=== PATIENT | female | born 1945 | race Caucasian/White ===

== ENCOUNTER → 2016-08-17 | Outpatient (CLI) | payer MEDICARE ==
[2016-08-17 10:59] LABS: Magnesium 2.4 mg/dL (1.6-2.3); Potassium 4.5 mmol/L (3.5-5.1)
== END | disposition home or self-care (01) ==
LOC: LABWHC1 09:59
PROVIDERS: ATTEND Internal Medicine
DX: I50.23 Acute on chronic systolic (congestive) heart failure (principal)
CPT/HCPCS: 36415; 80048; 83735; 83880

== ENCOUNTER → 2016-08-25 | Outpatient (CLI) | payer MEDICARE ==
[2016-08-25 09:39] LABS: Calcium 10.3 mg/dL (8.4-10.2); Magnesium 2.5 mg/dL (1.6-2.3); Potassium 4.5 mmol/L (3.5-5.1); Total Bilirubin 1.7 mg/dL (0.2-1.3)
== END | disposition home or self-care (01) ==
LOC: LABWHC1 08:51
PROVIDERS: ATTEND Internal Medicine
DX: I50.43 Acute on chronic combined systolic (congestive) and diastolic (congestive) heart failure (principal)
CPT/HCPCS: 36415; 80053; 83735; 83880

== ENCOUNTER → 2016-09-14 | Outpatient (CLI) | payer MEDICARE ==
[2016-09-14 08:49] LABS: Calcium 10.3 mg/dL (8.4-10.2); Magnesium 2.3 mg/dL (1.6-2.3); Potassium 4.2 mmol/L (3.5-5.1)
== END | disposition home or self-care (01) ==
LOC: LABWHC1 08:05
PROVIDERS: ATTEND Internal Medicine
DX: I50.22 Chronic systolic (congestive) heart failure (principal)
CPT/HCPCS: 36415; 80048; 83735; 83880

== ENCOUNTER → 2016-09-24 | Outpatient (CLI) | payer MEDICARE ==
[2016-09-24 12:10] LABS: Appearance,Urine Clear (Clear); Bilirubin,Urine Negative (Negative); Glucose,Urine (UA) Negative (Negative); Ketones,Urine Negative (Negative); Leukocyte Esterase,Urine Negative (Negative); Nitrite,Urine Negative (Negative); PH, Urine 6.5 (5.0-8.0); Protein,Urine Trace (Negative); Specific Gravity,Urine 1.011 (1.001-1.035); UA Billing (MACRO vs. MICRO) CHEM; Urobilinogen,Urine <2.0 mg/dL (<2.0)
[2016-09-24 12:28] LABS: Anisocytosis Moderate; Basophils # (A) 0.1 k/uL (0-0.2); Basophils % (A) 1 %; CH 33.8; CHCM 32.7; Eosinophils # (A) 0.1 k/uL (0-0.7); Eosinophils % (A) 1 %; HCT 30.8 % (34.0-46.0); HDW 2.98; HGB 9.6 gm/dL (11.4-16.0); Hypochromasia Slight; Luc % (Auto) 1; Lymphocytes # (A) 0.5 k/uL (1.0-4.8); Lymphocytes % (A) 4 %; MCH 32.6 pg (25.0-35.0); MCHC 31.2 g/dL (31.0-37.0); MCV 104.3 fL (80.0-100.0); Macrocytosis Marked; Mean Platelet Volume 8.3; Monocytes # (A) 0.4 k/uL (0-1.0); Monocytes % (A) 3 %; Neutrophils # (A) 9.9 k/uL (1.3-7.7); Neutrophils % (A) 90 %; RBC 2.96 m/uL (3.80-5.40); RDW 20.7 % (11.5-15.5); WBC (Perox) 11.45
[2016-09-24 12:46] LABS: Manual Review Performed
== END | disposition home or self-care (01) ==
LOC: LABWHC1 11:35
PROVIDERS: ATTEND Internal Medicine
DX: I95.9 Hypotension, unspecified (principal)
CPT/HCPCS: 36415; 81003; 85025; 87040; 87086

== ENCOUNTER 2016-10-08 16:36 | Inpatient (IN) | payer MEDICARE ==
--- NOTE | 2016-10-08 17:55 | ED ---
General Adult HPI - General Chief complaint: Weakness Stated complaint: difficulty breathing Time Seen by Provider: 10/08/16 16:51 Source: patient, RN notes reviewed, old records reviewed Mode of arrival: wheelchair Limitations: no limitations - History of Present Illness Initial comments: This is a 71-year-old female the ER for evaluation. This patient presents for evaluation of continued weakness. Patient medical history significant for CHF and low thyroid. Patient was tried on outpatient therapy was symptoms have been progressing for about 2-3 weeks now. Patient did see her family doctor yesterday and has significantly worsened since yesterday. Patient complaining of shortness of breath and overall lethargy, poor strain secondary to weakness and inattentiveness - Related Data Home Medications Medication Instructions Recorded Confirmed Allopurinol 300 mg PO DAILY 07/12/14 10/08/16 Hydrocodone/Acetaminophen 1 tab PO Q6HR PRN 04/22/15 10/08/16 [Hydrocodon-Acetaminophn 10-325] Ferrous Sulfate [Iron (65 MG 325 mg PO DAILY@159912/23/15 10/08/16 Elemental)] Folic Acid 1 mg PO DAILY@1600 02/04/16 10/08/16 Multivits-Min/Iron/FA/Lutein 1 tab PO DAILY 02/04/16 10/08/16 [Centrum Silver Women Tablet] ALPRAZolam [Xanax] 0.25 mg PO HS PRN 10/08/16 10/08/16 Bumetanide [BUMEX] 2 mg PO BID@0800,1500 10/08/16 10/08/16 Levothyroxine Sodium [Synthroid] 50 mcg PO DAILY 10/08/16 10/08/16 Pantoprazole Sodium [Protonix] 40 mg PO BID@0800,1600 10/08/16 10/08/16 Potassium Chloride [Klor-Con] 10 meq PO BID@0800,1600 10/08/16 10/08/16 Rivaroxaban [Xarelto] 15 mg PO W/SUPPER@1600 10/08/16 10/08/16 hydrALAZINE HCL [Apresoline] 25 mg PO TID 10/08/16 10/08/16 Previous Rx's Medication Instructions Recorded Sildenafil [Revatio] 20 mg PO TID #90 tab 02/27/16 Spironolactone [Aldactone] 25 mg PO DAILY #30 tab 02/27/16 Allergies Allergy/AdvReac Type Severity Reaction Status Date / Time adhesive Allergy Rash/Hives Verified 10/08/16 17:04 Review of Systems ROS Statement: Those systems with pertinent positive or pertinent negative responses have been documented in the HPI. ROS Other: All systems not noted in ROS Statement are negative. 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 USES HOME O2 2 LITERS N/C AND HAS NEBULIZER. EGD and April 2014 revealing gastritis and gastric polyp. PAST HX GOUT,ANEMIA/IRON DEFICIENCY, Last Myocardial Infarction Date:: 2008 History of Any Multi-Drug Resistant Organisms: None Reported Past Surgical History: Bariatric Surgery, Cholecystectomy, Heart Catheterization , Heart Catheterization With Stent, Hernia Repair, Joint Replacement Additional Past Surgical History / Comment(s): BILATERAL CATARACT SURGERY, HIATAL HERNIA REPAIR, OPEN CHOLECYSTECTOMY, 3 C-SECTIONS, BILATERAL TOTAL KNEES TWICE, stomache stapled 35 years ago, EGD Past Anesthesia/Blood Transfusion Reactions: No Reported Reaction Additional Past Anesthesia/Blood Transfusion Reaction / Comment(s): PT HAS NEVER HAD BLOOD TRANSFUSION Date of Last Stent Placement:: 2008 Past Psychological History: No Psychological Hx Reported Additional Psychological History / Comment(s): LIVES WITH OF 50 YRS. SHE LIVES IN A SINGLE LEVEL HOME. PT PERFORMS OWN ADL'S. THE BATHROOM IS HANDICAP ASSESSIBLE. THEY GET MEALS ON WHEELS 4 DAYS A WEEK. HER COOKS ON THE OTHER DAYS. PT USES A CANE IF SHE HAS TO WALK A DISTANCE. PT NO LONGER DRIVES. HER DRIVES. Smoking Status: Former smoker Past Alcohol Use History: Occasional Additional Past Alcohol Use History / Comment(s): Quit smoking over 40 years ago stated only smoked a few years in her 21. 's 1 pack per week Past Drug Use History: None Reported - Past Family History Father Family Medical History: Cancer, CVA/TIA Additional Family Medical History / Comment(s): FATHER AT AGE 81YRS Mother Family Medical History: CVA/TIA, Myocardial Infarction (SD) Additional Family Medical History / Comment(s): MOTHER IS ALIVE AT AGE 96YRS. General Exam Limitations: no limitations, altered mental status General appearance: alert, lethargic, in distress Head exam: Present: atraumatic, normocephalic, normal inspection Eye exam: Present: normal appearance, PERRL, EOMI. Absent: scleral icterus, conjunctival injection, periorbital swelling ENT exam: Present: normal exam, mucous membranes moist Neck exam: Present: normal inspection. Absent: tenderness, meningismus, lymphadenopathy Respiratory exam: Present: normal lung sounds bilaterally, respiratory distress , accessory muscle use, decreased breath sounds, prolonged expiratory. Absent: wheezes, rales, rhonchi, stridor Cardiovascular Exam: Present: regular rate, normal rhythm, normal heart sounds. Absent: systolic murmur, diastolic murmur, rubs, gallop, clicks GI/Abdominal exam: Present: soft, normal bowel sounds. Absent: distended, tenderness, guarding, rebound, rigid Extremities exam: Present: normal inspection, full ROM, normal capillary refill. Absent: tenderness, pedal edema, joint swelling, calf tenderness Back exam: Present: normal inspection Neurological exam: Present: alert, oriented X3, CN II-XII intact Psychiatric exam: Present: normal affect, normal mood Skin exam: Present: warm, dry, intact, normal color. Absent: rash Course Vital Signs 10/08/16 16:40 Temperature 97.3 F L Pulse Rate 67 Respiratory 22 Rate Blood Pressure 89/52 O2 Sat by Pulse 95 Oximetry - Reevaluation(s) Reevaluation #1: 10/08/16 18:30 Patient sluing no significant clinical improvement at this point EKG Findings - EKG Comments: EKG Findings:: EKG shows paced rhythm rate of 71, ND 160, QRS 200, QTC 549 Medical Decision Making - Medical Decision Making 71 female here with multifactorial weakness, severe dehydration severe congestive heart failure severe weakness uremia dehydration and multiple left- sided abnormalities compounded by dehydration CHF, patient be admitted for both cardiac and nephrology evaluations, correcting electrolytes and cardiac observation - Lab Data Result diagrams: 10/08/16 17:30 10/08/16 17:30 Lab Results 10/08/16 10/08/16 10/08/16 Range/Units 17:30 17:30 17:30 WBC (3.8-10.6) k/uL RBC (3.80-5.40) m/uL Hgb (11.4-16.0) gm/dL Hct (34.0-46.0) % MCV (80.0-100.0) fL MCH (25.0-35.0) pg MCHC (31.0-37.0) g/dL RDW (11.5-15.5) % Plt Count (150-450) k/uL Neutrophils % % Lymphocytes % % Monocytes % % Eosinophils % % Basophils % % Neutrophils # (1.3-7.7) k/uL Lymphocytes # (1.0-4.8) k/uL Monocytes # (0-1.0) k/uL Eosinophils # (0-0.7) k/uL Basophils # (0-0.2) k/uL Manual Slide Review Hypochromasia Poikilocytosis (manual Anisocytosis Macrocytosis Ovalocytes PT (9.0-12.0) sec INR (<1.1) APTT (22.0-30.0) sec Sodium 125 L (137-145) mmol/L Potassium 6.2 H* (3.5-5.1) mmol/L Chloride 86 L (98-107) mmol/L Carbon Dioxide 24 (22-30) mmol/L Anion Gap 15 mmol/L BUN 117 H* (7-17) mg/dL Creatinine 2.60 H (0.52-1.04) mg/dL Est GFR (MDRD) Af Amer 22 (>60 ml/min/1.73 sqM) Est GFR (MDRD) Non-Af 18 (>60 ml/min/1.73 sqM) Glucose 116 H (74-99) mg/dL Plasma Lactic Acid Odilon 1.7 (0.7-2.0) mmol/L Calcium 10.5 H (8.4-10.2) mg/dL Phosphorus 5.2 H (2.5-4.5) mg/dL Magnesium 3.1 H (1.6-2.3) mg/dL Total Bilirubin 1.9 H (0.2-1.3) mg/dL AST 36 (14-36) U/L ALT 31 (9-52) U/L Alkaline Phosphatase 137 H (38-126) U/L Total Creatine Kinase 42 (30-135) U/L Total Protein 7.3 (6.3-8.2) g/dL Albumin 4.0 (3.5-5.0) g/dL 10/08/16 10/08/16 Range/Units 17:30 17:30 WBC 13.0 H (3.8-10.6) k/uL RBC 2.57 L (3.80-5.40) m/uL Hgb 8.7 L (11.4-16.0) gm/dL Hct 27.3 L (34.0-46.0) % MCV 106.5 H (80.0-100.0) fL MCH 33.9 (25.0-35.0) pg MCHC 31.9 (31.0-37.0) g/dL RDW 22.3 H (11.5-15.5) % Plt Count 240 (150-450) k/uL Neutrophils % 91 % Lymphocytes % 4 % Monocytes % 4 % Eosinophils % 0 % Basophils % 0 % Neutrophils # 11.8 H (1.3-7.7) k/uL Lymphocytes # 0.5 L (1.0-4.8) k/uL Monocytes # 0.5 (0-1.0) k/uL Eosinophils # 0.0 (0-0.7) k/uL Basophils # 0.0 (0-0.2) k/uL Manual Slide Review Performed Hypochromasia Slight Poikilocytosis (manual Present Anisocytosis Moderate Macrocytosis Marked Ovalocytes Present PT 17.0 H (9.0-12.0) sec INR 1.8 (<1.1) APTT 33.8 H (22.0-30.0) sec Sodium (137-145) mmol/L Potassium (3.5-5.1) mmol/L Chloride (98-107) mmol/L Carbon Dioxide (22-30) mmol/L Anion Gap mmol/L BUN (7-17) mg/dL Creatinine (0.52-1.04) mg/dL Est GFR (MDRD) Af Amer (>60 ml/min/1.73 sqM) Est GFR (MDRD) Non-Af (>60 ml/min/1.73 sqM) Glucose (74-99) mg/dL Plasma Lactic Acid Odilon (0.7-2.0) mmol/L Calcium (8.4-10.2) mg/dL Phosphorus (2.5-4.5) mg/dL Magnesium (1.6-2.3) mg/dL Total Bilirubin (0.2-1.3) mg/dL AST (14-36) U/L ALT (9-52) U/L Alkaline Phosphatase (38-126) U/L Total Creatine Kinase (30-135) U/L Total Protein (6.3-8.2) g/dL Albumin (3.5-5.0) g/dL - Radiology Data Radiology results: report reviewed (Chest x-ray shows pleural effusions improved from prior, pulmonary edema), image reviewed Critical Care Time Critical Care Time: Yes Total Critical Care Time: 31 Disposition Clinical Impression: Unstable angina, Pleural effusion, COPD exacerbation, CHF exacerbation, Weakness, Hyponatremia, Dehydration, Uremia, ARF (acute renal failure), Hyperkalemia Disposition: ADMITTED IP TO THIS [facility] Condition: Fair Referrals: Armen Jackson MD [Primary Care Provider] - 1-2 days
[2016-10-08 18:04] LABS: INR 1.8 (<1.1); Partial Thromboplastin Time 33.8 sec (22.0-30.0)
--- NOTE | 2016-10-08 18:05 | XR ---
EXAMINATION TYPE: XR chest 2V DATE OF EXAM: 10/08/2016 6:01 PM COMPARISON: 03/15/2016 HISTORY: Difficulty breathing TECHNIQUE: Frontal and lateral views of the chest are obtained. FINDINGS: Heart is enlarged. There is pulmonary vascular congestion. There is a left axillary pacema ker with lead tips in the right ventricle. There is slight blunting of costophrenic angles. Bones are slightly osteopenic. IMPRESSION: Congestive heart failure with pleural effusions. Pleural fluid is improved compared to o ld exam. Pulmonary edema is the same or slightly worse.
[2016-10-08 18:07] LABS: Anisocytosis Moderate; Basophils % (A) 0 %; CH 35.2; CHCM 33.5; Eosinophils % (A) 0 %; HCT 27.3 % (34.0-46.0); HDW 3.32; HGB 8.7 gm/dL (11.4-16.0); Hypochromasia Slight; Luc # (Auto) 0.12; Luc % (Auto) 1; Lymphocytes # (A) 0.5 k/uL (1.0-4.8); Lymphocytes % (A) 4 %; MCH 33.9 pg (25.0-35.0); MCHC 31.9 g/dL (31.0-37.0); MCV 106.5 fL (80.0-100.0); Macrocytosis Marked; Mean Platelet Volume 8.6; Monocytes # (A) 0.5 k/uL (0-1.0); Monocytes % (A) 4 %; Neutrophils # (A) 11.8 k/uL (1.3-7.7); Neutrophils % (A) 91 %; RBC 2.57 m/uL (3.80-5.40); RDW 22.3 % (11.5-15.5); WBC (Perox) 13.23
[2016-10-08 18:14] LABS: Calcium 10.5 mg/dL (8.4-10.2); Magnesium 3.1 mg/dL (1.6-2.3); Phosphorous 5.2 mg/dL (2.5-4.5); Total Bilirubin 1.9 mg/dL (0.2-1.3); Total Protein 7.3 g/dL (6.3-8.2)
[2016-10-08 18:24] LABS: Manual Review Performed
[2016-10-08 18:25] LABS: Potassium 6.2 mmol/L (3.5-5.1)
[2016-10-08 18:26] LABS: Ovalocytes Present
[2016-10-08 18:28] LABS: Troponin I 0.033 ng/mL (0.000-0.034)
[2016-10-08 18:31] LABS: Creatine Kinase MB 5.6 ng/mL (0.0-2.4)
[2016-10-08] MEDS ORDERED: SODIUM CHLORIDE 0.9% 1,000 ML IV STA (18:33)
[2016-10-08] MEDS ORDERED: DEXTROSE 50%-WATER 50 ML SYRINGE IVP STA (18:33)
[2016-10-08] MEDS ORDERED: SODIUM POLYSTYRENE SULFONATE 15 GM/60 ML BOTTLE PO STA (18:33)
[2016-10-08] MEDS ORDERED: INSULIN REGULAR 100 UNIT/ML VIAL IV ONE (18:33)
[2016-10-08] MEDS: SODIUM CHLORIDE 0.9% 1,000 ML IV SCH (20:00)
[2016-10-09 00:07] LABS: Calcium 9.8 mg/dL (8.4-10.2); Potassium 5.6 mmol/L (3.5-5.1)
[2016-10-09 05:28] LABS: Calcium 9.5 mg/dL (8.4-10.2); Magnesium 2.9 mg/dL (1.6-2.3); Phosphorous 4.9 mg/dL (2.5-4.5); Potassium 5.5 mmol/L (3.5-5.1)
[2016-10-09 07:14] LABS: Anisocytosis Moderate; Basophils % (A) 0 %; CH 34.5; CHCM 32.8; Eosinophils # (A) 0.1 k/uL (0-0.7); Eosinophils % (A) 1 %; HCT 24.1 % (34.0-46.0); HDW 3.17; HGB 7.7 gm/dL (11.4-16.0); Hypochromasia Slight; Luc # (Auto) 0.13; Luc % (Auto) 1; Lymphocytes # (A) 0.6 k/uL (1.0-4.8); Lymphocytes % (A) 6 %; MCH 33.8 pg (25.0-35.0); MCHC 31.7 g/dL (31.0-37.0); MCV 106.4 fL (80.0-100.0); Macrocytosis Marked; Mean Platelet Volume 8.4; Monocytes # (A) 0.4 k/uL (0-1.0); Monocytes % (A) 4 %; Neutrophils # (A) 8.2 k/uL (1.3-7.7); Neutrophils % (A) 88 %; RBC 2.27 m/uL (3.80-5.40); WBC 9.4 k/uL (3.8-10.6); WBC (Perox) 9.38
[2016-10-09 09:02] LABS: Manual Review Performed
[2016-10-09] MEDS ORDERED: FUROSEMIDE 10 MG/ML 10 ML VIAL IV STA (09:30)
--- NOTE | 2016-10-09 09:37 | P.NPCON ---
History of Present Illness - Reason for Consult acute renal failure - History of Present Illness Reason for consultation: Acute kidney injury History of present illness: Patient is a 71-year-old female seen in renal consultation for acute kidney injury. In March 2016 her creatinine was near 1-1.2. However recently it's been in the range of 1.7-2 as of 09/22/2016. This admission it was 2.6 and his 2.5 today. Patient presented to the hospital with worsening dyspnea. She has systolic CHF with ejection fraction of 20-25% along with severe tricuspid regurgitation and moderate pulmonary hypertension. She did receive 1 L of IV fluid bolus in the ER for hypotension. According to the patient her blood pressure tends to run low and is typically in the systolic 70s to 80s. She denies any lightheadedness or dizziness. Her chest x-ray suggestive of fluid overload. Her sodium level was also low at 125 and potassium level was elevated at 6.2. She did receive IV insulin as well as Kayexalate and potassium of this morning is down to 5.5. Her urine output over night was near 1 L. She was taking Bumex as well as Aldactone and potassium supplementation at home. She denies use of NSAIDs. She does not follow with a policy director as an outpatient. Vital signs are stable. General: The patient appeared well nourished and normally developed. HEENT: Head exam is unremarkable. Neck is without jugular venous distension. LUNGS: Diffuse rhonchi. Breath sounds decreased. HEART: Rate and Rhythm are regular. First and second heart sounds normal. No murmurs, rubs or gallops. ABDOMEN: Abdominal exam reveals normal bowel sounds. Non-tender and non- distended. No evidence of peritonitis. EXTREMITITES: 1+ edema. 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 USES HOME O2 2 LITERS N/C at HS AND HAS NEBULIZER. EGD and April 2014 revealing gastritis and gastric polyp. PAST HX GOUT,ANEMIA/IRON DEFICIENCY, Last Myocardial Infarction Date:: 2008 History of Any Multi-Drug Resistant Organisms: None Reported Past Surgical History: Bariatric Surgery, Cholecystectomy, Heart Catheterization , Heart Catheterization With Stent, Hernia Repair, Joint Replacement Additional Past Surgical History / Comment(s): BILATERAL CATARACT SURGERY, HIATAL HERNIA REPAIR, OPEN CHOLECYSTECTOMY, 3 C-SECTIONS, BILATERAL TOTAL KNEES TWICE, stomache stapled 35 years ago, EGD Past Anesthesia/Blood Transfusion Reactions: No Reported Reaction Additional Past Anesthesia/Blood Transfusion Reaction / Comment(s): PT HAS NEVER HAD BLOOD TRANSFUSION Date of Last Stent Placement:: 2008 Past Psychological History: No Psychological Hx Reported Additional Psychological History / Comment(s): LIVES WITH OF 50 YRS. SHE LIVES IN A SINGLE LEVEL HOME. PT PERFORMS OWN ADL'S. THE BATHROOM IS HANDICAP ASSESSIBLE. THEY GET MEALS ON WHEELS 4 DAYS A WEEK. HER COOKS ON THE OTHER DAYS. PT USES A CANE IF SHE HAS TO WALK A DISTANCE. PT NO LONGER DRIVES. HER DRIVES. Smoking Status: Former smoker Past Alcohol Use History: Occasional Additional Past Alcohol Use History / Comment(s): Quit smoking over 40 years ago stated only smoked a few years in her 21. 's 1 pack per week Past Drug Use History: None Reported - Past Family History Father Family Medical History: Cancer, CVA/TIA Additional Family Medical History / Comment(s): FATHER AT AGE 81YRS Mother Family Medical History: CVA/TIA, Myocardial Infarction (CO) Additional Family Medical History / Comment(s): MOTHER IS ALIVE AT AGE 96YRS. Medications and Allergies Home Medications Medication Instructions Recorded Confirmed Type Allopurinol 300 mg PO DAILY 07/12/14 10/08/16 History Hydrocodone/Acetaminophen 1 tab PO Q6HR PRN 04/22/15 10/08/16 History [Hydrocodon-Acetaminophn 10-325] Ferrous Sulfate [Iron (65 MG 325 mg PO DAILY@1600 12/23/15 10/08/16 History Elemental)] Folic Acid 1 mg PO DAILY@1600 02/04/16 10/08/16 History Multivits-Min/Iron/FA/Lutein 1 tab PO DAILY 02/04/16 10/08/16 History [Centrum Silver Women Tablet] ALPRAZolam [Xanax] 0.25 mg PO HS PRN 10/08/16 10/08/16 History Bumetanide [BUMEX] 2 mg PO BID@0800,1500 10/08/16 10/08/16 History Levothyroxine Sodium [Synthroid] 50 mcg PO DAILY 10/08/16 10/08/16 History Pantoprazole Sodium [Protonix] 40 mg PO BID@0800,1600 10/08/16 10/08/16 History Potassium Chloride [Klor-Con] 10 meq PO BID@0800,1600 10/08/16 10/08/16 History Rivaroxaban [Xarelto] 15 mg PO W/SUPPER@1600 10/08/16 10/08/16 History hydrALAZINE HCL [Apresoline] 25 mg PO TID 10/08/16 10/08/16 History Allergies Allergy/AdvReac Type Severity Reaction Status Date / Time adhesive Allergy Rash/Hives Verified 10/08/16 17:04 Physical Exam Vitals: Vital Signs Temp Pulse Resp BP Pulse Ox 10/09/16 09:00 80 12 78/43 90 L 10/09/16 08:00 97.7 F 77 20 85/51 97 10/09/16 07:00 76 16 73/51 98 10/09/16 06:00 75 25 H 78/49 99 10/09/16 05:00 97.3 F L 80 20 80/49 95 10/09/16 04:00 73 22 83/55 98 10/09/16 03:00 72 22 78/50 98 10/09/16 02:00 73 18 76/51 97 10/09/16 01:00 74 20 80/53 97 10/09/16 00:00 97.8 F 72 18 77/55 97 10/08/16 23:00 97.5 F L 72 24 84/50 98 10/08/16 22:00 75 21 87/53 99 10/08/16 21:00 75 23 87/57 97 10/08/16 20:00 90 24 90/52 98 10/08/16 19:40 97.5 F L 77 20 97 10/08/16 18:42 97 F L 71 14 86/53 99 Intake and Output 10/08/16 10/09/16 10/09/16 22:59 06:59 14:59 Intake Total 60 190 60 Output Total 250 Balance -190 190 60 Intake: IV 60 160 60 Sodium Chloride 0.9% 1, 60 160 60 000 ml @ 20 mls/hr IV . Q24H [facility] Rx#:[id number] Oral 30 Output: Urine 250 Other: Voiding Method Bedside Commode Bedpan # Voids 1 Weight 82.9 kg 82.1 kg Results - Lab Results Most recent lab results Calcium 9.5 mg/dL (8.4-10.2) 10/09/16 05:00 Phosphorus 4.9 mg/dL (2.5-4.5) H 10/09/16 05:00 Magnesium 2.9 mg/dL (1.6-2.3) H 10/09/16 05:00 10/09/16 05:00 10/09/16 05:00 Assessment and Plan Plan: Assessment: #1. Nonoliguric acute kidney injury secondary to ATN secondary to cardiorenal syndrome. Creatinine 2.5 today. It was 2.6 on admission. Her renal function has been gradually worsening over the last few months. Creatinine was in the range of 1-1.2 in March 2016 and recently has been near 2. #2. Hyperkalemia secondary to acute kidney injury and potassium supplementation. Improved. #3. Hyponatremia. Appears hypervolemic in nature. #4. Chronic hypotension related to underlying cardiac status. #5. Systolic CHF with ejection fraction of 20-25% with severe tricuspid regurgitation and moderate pulmonary hypertension. #6. Anemia. Rule out iron deficiency. Plan: Check urinalysis. Check renal ultrasound. Renal diet and 1.2 L fluid restriction. Lasix 60 mg IV once today. Avoid nephrotoxic agents and hypotensive episodes. Check iron studies. Thank you for the consultation. I will continue to follow the patient with you during her hospital stay.
--- NOTE | 2016-10-09 10:04 | ECHOF ---
Referral Reason:Heart Failure MEASUREMENTS -------- HEIGHT: 154.9 cm WEIGHT: 81.7 kg BP: 73/51 RVIDd: 3.8 cm (< 3.3) IVSd: 1.1 cm (0.6 - 1.1) LVIDd: 5.8 cm (3.9 - 5.3) LVPWd: 1.1 cm (0.6 - 1.1) IVSs: 1.2 cm LVIDs: 5.3 cm LVPWs: 1.4 cm LA Diam: 3.4 cm (2.7 - 3.8) LAESV Index (A-L): 60.60 ml/m Ao Diam: 2.1 cm (2.0 - 3.7) AV Cusp: 1.3 cm (1.5 - 2.6) LA Diam: 2.9 cm (2.7 - 3.8) MV EXCURSION: 7.636 mm (> 18.000) MV EF SLOPE: 52 mm/s (70 - 150) EPSS: 2.3 cm MV E Marcelino: 0.97 m/s MV DecT: 219 ms MV A Marcelino: 0.45 m/s MV E/A Ratio: 2.14 RAP: 15.00 mmHg RVSP: 34.02 mmHg FINDINGS -------- Paced rhythm. Pacerwire seen in RV and RA. This was a technically good study. The left ventricle is moderately dilated. Left ventricular wall thickness is normal. There is severe global hypokinesis of LV . Overall left ventricular systolic function is severely impaired with, an EF between 20 - 25 %. The right ventricle is mild to moderately enlarged. LA is severely dilated >40 ml/m2 The right atrium is normal in size. Aortic valve is trileaflet and is mildly thickened. The mitral valve leaflets are mild to moderately thickened. Moderate mitral annular calcification present. Moderate mitral regurgitation is present. Moderate to severe tricuspid regurgitation present. The right ventricular systolic pressure, as measured by Doppler, is 34.02mmHg. Trace/mild (physiologic) pulmonic regurgitation. The aortic root size is normal. The inferior vena cava is dilated with poor inspiratory collapse which is consistent with estimated right atrial pressure of 15 mmHg. There is no pericardial effusion. CONCLUSIONS -------- 1. Paced rhythm. 2. The right atrium is normal in size. 3. Aortic valve is trileaflet and is mildly thickened. 4. The mitral valve leaflets are mild to moderately thickened. 5. Moderate mitral annular calcification present. 6. Moderate mitral regurgitation is present. 7. Moderate to severe tricuspid regurgitation present. 8. The right ventricular systolic pressure, as measured by Doppler, is 34.02mmHg. 9. Trace/mild (physiologic) pulmonic regurgitation. 10. The aortic root size is normal. 11. The inferior vena cava is dilated with poor inspiratory collapse which is consistent with estimated right atrial pressure of 15 mmHg. 12. Pacerwire seen in RV and RA. 13. There is no pericardial effusion. 14. This was a technically good study. 15. The left ventricle is moderately dilated. 16. Left ventricular wall thickness is normal. 17. There is severe global hypokinesis of LV . 18. Overall left ventricular systolic function is severely impaired with, an EF between 20 - 25 %. 19. The right ventricle is mild to moderately enlarged. 20. LA is severely dilated >40 ml/m2 DIRECTOR PATIENT FIN[employer]CIAL SERVICES: Néstor Luis RDCS
--- NOTE | 2016-10-09 10:20 | P.HPIM ---
History of Present Illness H&P Date: 10/09/16 Chief Complaint: Weakness and shortness of breath Patient is a 71-year-old female was known history of cardiomyopathy who presented to [facility] emergency room with a chief complaint of weakness and shortness of breath. Patient is usually followed by cardiology in [place] and she is maintained on Bumex and Zaroxolyn and Aldactone. She was evaluated in our office about 10 days ago she had evidence of dehydration and increased BUN and creatinine at that time Zaroxolyn was held however patient continued to have worsening weakness she presented to emergency room on 10/08/2016. In the emergency room patient was found to have acute renal failure was elevated BUN and creatinine at 117 and 2.6 respectively Patient also had evidence of anemia with hemoglobin down to 8.7 And evidence of hyperkalemia She was evaluated in the emergency room she was given 1 L of IV normal saline in the emergency room and was admitted to ICU for further evaluation and treatment nephrology consultation was requested. 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 USES HOME O2 2 LITERS N/C at HS AND HAS NEBULIZER. EGD and April 2014 revealing gastritis and gastric polyp. PAST HX GOUT,ANEMIA/IRON DEFICIENCY, Last Myocardial Infarction Date:: 2008 History of Any Multi-Drug Resistant Organisms: None Reported Past Surgical History: Bariatric Surgery, Cholecystectomy, Heart Catheterization , Heart Catheterization With Stent, Hernia Repair, Joint Replacement Additional Past Surgical History / Comment(s): BILATERAL CATARACT SURGERY, HIATAL HERNIA REPAIR, OPEN CHOLECYSTECTOMY, 3 C-SECTIONS, BILATERAL TOTAL KNEES TWICE, stomache stapled 35 years ago, EGD Past Anesthesia/Blood Transfusion Reactions: No Reported Reaction Additional Past Anesthesia/Blood Transfusion Reaction / Comment(s): PT HAS NEVER HAD BLOOD TRANSFUSION Date of Last Stent Placement:: 2008 Past Psychological History: No Psychological Hx Reported Additional Psychological History / Comment(s): LIVES WITH OF 50 YRS. SHE LIVES IN A SINGLE LEVEL HOME. PT PERFORMS OWN ADL'S. THE BATHROOM IS HANDICAP ASSESSIBLE. THEY GET MEALS ON WHEELS 4 DAYS A WEEK. HER COOKS ON THE OTHER DAYS. PT USES A CANE IF SHE HAS TO WALK A DISTANCE. PT NO LONGER DRIVES. HER DRIVES. Smoking Status: Former smoker Past Alcohol Use History: Occasional Additional Past Alcohol Use History / Comment(s): Quit smoking over 40 years ago stated only smoked a few years in her 21. 's 1 pack per week Past Drug Use History: None Reported - Past Family History Father Family Medical History: Cancer, CVA/TIA Additional Family Medical History / Comment(s): FATHER AT AGE 81YRS Mother Family Medical History: CVA/TIA, Myocardial Infarction (VT) Additional Family Medical History / Comment(s): MOTHER IS ALIVE AT AGE 96YRS. Medications and Allergies Home Medications Medication Instructions Recorded Confirmed Type Allopurinol 300 mg PO DAILY 07/12/14 10/08/16 History Hydrocodone/Acetaminophen 1 tab PO Q6HR PRN 04/22/15 10/08/16 History [Hydrocodon-Acetaminophn 10-325] Ferrous Sulfate [Iron (65 MG 325 mg PO DAILY@1600 12/23/15 10/08/16 History Elemental)] Folic Acid 1 mg PO DAILY@1600 02/04/16 10/08/16 History Multivits-Min/Iron/FA/Lutein 1 tab PO DAILY 02/04/16 10/08/16 History [Centrum Silver Women Tablet] ALPRAZolam [Xanax] 0.25 mg PO HS PRN 10/08/16 10/08/16 History Bumetanide [BUMEX] 2 mg PO BID@0800,1500 10/08/16 10/08/16 History Levothyroxine Sodium [Synthroid] 50 mcg PO DAILY 10/08/16 10/08/16 History Pantoprazole Sodium [Protonix] 40 mg PO BID@0800,1600 10/08/16 10/08/16 History Potassium Chloride [Klor-Con] 10 meq PO BID@0800,1600 10/08/16 10/08/16 History Rivaroxaban [Xarelto] 15 mg PO W/SUPPER@1600 10/08/16 10/08/16 History hydrALAZINE HCL [Apresoline] 25 mg PO TID 10/08/16 10/08/16 History Allergies Allergy/AdvReac Type Severity Reaction Status Date / Time adhesive Allergy Rash/Hives Verified 10/08/16 17:04 Physical Exam Vitals: Vital Signs Temp Pulse Resp BP Pulse Ox 10/09/16 09:00 80 12 78/43 90 L 10/09/16 08:00 97.7 F 77 20 85/51 97 10/09/16 07:00 76 16 73/51 98 10/09/16 06:00 75 25 H 78/49 99 10/09/16 05:00 97.3 F L 80 20 80/49 95 10/09/16 04:00 73 22 83/55 98 10/09/16 03:00 72 22 78/50 98 10/09/16 02:00 73 18 76/51 97 10/09/16 01:00 74 20 80/53 97 10/09/16 00:00 97.8 F 72 18 77/55 97 10/08/16 23:00 97.5 F L 72 24 84/50 98 10/08/16 22:00 75 21 87/53 99 10/08/16 21:00 75 23 87/57 97 10/08/16 20:00 90 24 90/52 98 10/08/16 19:40 97.5 F L 77 20 97 10/08/16 18:42 97 F L 71 14 86/53 99 Intake and Output 10/08/16 10/09/16 10/09/16 22:59 06:59 14:59 Intake Total 60 190 60 Output Total 250 Balance -190 190 60 Intake: IV 60 160 60 Sodium Chloride 0.9% 1, 60 160 60 000 ml @ 20 mls/hr IV . Q24H [facility] Rx#:[id number] Oral 30 Output: Urine 250 Other: Voiding Method Bedside Commode Bedpan # Voids 1 Weight 82.9 kg 82.1 kg In general patient is alert and oriented 3 in no apparent distress HEENT head normocephalic and atraumatic Neck is supple no JVD no goiter no lymphadenopathy Chest exam reveals a scattered crackles in both lung copeland no wheezing Cardiac exam reveals irregular heart sounds no gallops no murmurs Abdomen is soft nontender no organomegaly was normal bowel sounds Extremity exam reveals 2+ edema no cyanosis or clubbing Results CBC & Chem 7: 10/09/16 05:00 10/09/16 05:00 Labs: Abnormal Lab Results - Last 24 Hours (Table) 10/08/16 10/09/16 10/09/16 Range/Units 23:28 05:00 05:00 RBC 2.27 L (3.80-5.40) m/uL Hgb 7.7 L (11.4-16.0) gm/dL Hct 24.1 L (34.0-46.0) % MCV 106.4 H (80.0-100.0) fL RDW 22.0 H (11.5-15.5) % Neutrophils # 8.2 H (1.3-7.7) k/uL Lymphocytes # 0.6 L (1.0-4.8) k/uL Sodium 126 L 127 L (137-145) mmol/L Potassium 5.6 H 5.5 H (3.5-5.1) mmol/L Chloride 88 L 90 L (98-107) mmol/L BUN 119 H* 116 H* (7-17) mg/dL Creatinine 2.50 H 2.50 H (0.52-1.04) mg/dL Phosphorus 4.9 H (2.5-4.5) mg/dL Magnesium 2.9 H (1.6-2.3) mg/dL Thrombosis Risk Factor Assmnt - Choose All That Apply Any of the Below Risk Factors Present?: Yes Each Factor Represents 1 point: Abnormal pulmonary function (COPD), Heart failure (<1month), Obesity (BMI >25) Other Risk Factors: Yes Each Risk Factor Represents 2 Points: Age 61-74 years Each Risk Factor Represents 3 Points: History of DVT/PE Other congenital or acquired thrombophilia - If yes, enter type in comment: No Thrombosis Risk Factor Assessment Total Risk Factor Score: 8 Thrombosis Risk Factor Assessment Level: High Risk Assessment and Plan Plan: #1 acute renal failure related to dehydration due to diuretic use and due to cardiorenal syndrome #2 severe cardiomyopathy with ejection fraction 20-25% #3 underlying history of pulmonary hypertension #4 underlying history of anemia #5 hyperkalemia on presentation #6 hyponatremia #7 underlying history of gout #8 hypotension blood pressure of 77/44 At this time plan was discussed was nephrology will give 1 unit of red blood cell transfusion, will give IV Lasix for any evidence of pulmonary congestion, Cardiology consult has been requested will follow very closely prognosis is guarded due to the severity of her cardiac disease and pulmonary hypertension.
[2016-10-09] MEDS: MULTIVITAMINS, THERA 1 EACH TAB PO SCH (10:33)
[2016-10-09] MEDS: SILDENAFIL 20 MG TAB PO SCH ×3 (10:33→21:11)
[2016-10-09] MEDS: LEVOTHYROXINE 50 MCG TAB PO SCH (10:33)
[2016-10-09 11:17] LABS: % Iron Saturation 10.6 % (20-50)
--- NOTE | 2016-10-09 13:53 | US ---
EXAMINATION TYPE: US kidneys/renal and bladder DATE OF EXAM: 10/09/2016 1:22 PM COMPARISON: In pacs CLINICAL HISTORY: eva. Exam done portable in ICU. 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 1.2 cm hypoechoic lesion in the lateral aspect of the lower pole of the right kidney does not meet limits of the simple cyst. 2. Multiple hypoechoic lesions in the left kidney which do not meet the requirements of a simple cyst . 3. Questionable nonobstructing calculus in the upper pole of the right kidney. 4. Limited examination. Further imaging with CT or MR would be suggested.
[2016-10-09] MEDS ORDERED: DEXTROSE/WATER 1 500ML.BAG with DOPamine DRIP 800 MG IV SCH (14:30)
[2016-10-09] MEDS: FUROSEMIDE 250 MG in SODIUM CHLORIDE 0.9% 225 ML IVP SCH (16:25)
[2016-10-09] MEDS: RIVAROXABAN 15 MG TAB PO SCH (16:26)
[2016-10-09] MEDS: FOLIC ACID 1 MG TAB PO SCH (16:26)
[2016-10-09] MEDS: FERROUS SULFATE 325 MG TAB PO SCH (16:26)
[2016-10-09] MEDS: PANTOPRAZOLE 40 MG TABLET PO SCH (16:26)
--- NOTE | 2016-10-09 16:59 | CONS ---
DATE OF CONSULTATION: Patient's old medical records as well as records available from [facility] reviewed. This patient has a history of ischemic cardiomyopathy with severely impaired left ventricular systolic function and pulmonary hypertension, severe advanced heart failure and she is being followed at [facility]. Patient is being maintained as an outpatient on Bumex and Zaroxolyn and Aldactone. Patient is admitted with weakness and shortness of breath. Patient had acute on chronic renal failure and hyperkalemia. Patient has a prior history of cardiac catheterization in 2014. At that time, patient was found to have a patent stent. The patient had an AICD placed at [facility] about 3 or 4 months ago. Patient lives with her and she is up and about in the house. Past medical history includes history of atrial fibrillation, coronary artery disease and a prior history of stroke, DVT, myocardial infarction, history of bariatric surgery, cholecystectomy, hernia repair, joint replacement. Patient's home medications included: 1. Allopurinol. 2. Hydrocodone. 3. Ferrous Sulfate. 4. Bumex 2 mg b.i.d. 5. Xanax. 6. Protonix. 7. Klor-Con. 8. Hydralazine. 9. As well as Aldactone. 10. Xarelto 15 mg daily. In the emergency room, this patient's initial blood pressure was 86/53 mm of mercury. Physical examination at present reveals a 71-year-old female who appears very sick looking. Patient's blood pressure is running in the range of 80 systolic. That is what the blood pressure usually runs blood pressure. She runs usually the blood pressure in the range of 80 to 90 according to the . She had an echo done. HEENT examination is negative. Neck is supple. Jugular venous pressure is difficult to assess. HEART: First and second heart sounds are normal. Lungs reveal bilateral scattered wheezes and a few rales. ABDOMEN: Soft. Liver is palpable about 2 to 3 fingerbreadths below the right costal margin. EXTREMITIES: There is 1+ pedal edema. Peripheral pulsations are not well felt. Patient's hemoglobin is 7.7. Patient's potassium was 6.2 on admission, BUN is 116 and the creatinine is 2.5. The three tropes are 0.03, 2.033. Patient's BNP level is 64,000. Patient's usual creatinine runs in the range of 1.5 to 1.7 and the BNP runs in the range of 11,000. The BNP is 11,000. Patient's TSH is 64. FINAL IMPRESSION: 1. This patient has presented with shortness of breath. Patient has evidence of biventricular failure. Echocardiogram reveals severely impaired left ventricular systolic function as well as severely impaired left ventricular systolic function and pulmonary hypertension and elevated right atrial pressure. Inferior vena cava is dilated and does not collapse. 2. Normally functioning pacemaker. 3. Anemia, most likely secondary to chronic renal failure. The patient's MCV is ( ). Patient does have evidence of iron deficiency. RECOMMENDATIONS: I would recommend to aggressively diurese the patient. We will to treat the patient with Lasix 10 mg/h and we will start the patient on dopamine at 2.5 mcg to improve the renal perfusion. Patient's overall prognosis is guarded. Patient is going to get 1 unit of packed cells. He will need some iron transfusion. She will need some iron infusion. Follow-up BNP level.
[2016-10-09 18:01] LABS: Appearance,Urine Clear (Clear); Glucose,Urine (UA) Negative (Negative); Ketones,Urine Negative (Negative); Protein,Urine Trace (Negative); Specific Gravity,Urine 1.008 (1.001-1.035)
[2016-10-09 18:02] LABS: Bilirubin,Urine Negative (Negative); Leukocyte Esterase,Urine Negative (Negative); Nitrite,Urine Negative (Negative); UA Billing (MACRO vs. MICRO) CHEM; Urobilinogen,Urine <2.0 mg/dL (<2.0)
[2016-10-09] MEDS: DEXTROSE/WATER 1 500ML.BAG with DOPamine DRIP 800 MG IV SCH (20:15)
[2016-10-09] MEDS: SODIUM CHLORIDE 0.9% 1,000 ML IV SCH (20:15)
[2016-10-10 04:58] LABS: Anisocytosis Marked; Basophils % (A) 0 %; CH 33.4; CHCM 32.2; Eosinophils # (A) 0.1 k/uL (0-0.7); Eosinophils % (A) 1 %; HCT 30.1 % (34.0-46.0); Hypochromasia Slight; Luc # (Auto) 0.15; Luc % (Auto) 2; Lymphocytes # (A) 0.6 k/uL (1.0-4.8); Lymphocytes % (A) 6 %; MCH 32.2 pg (25.0-35.0); MCHC 30.6 g/dL (31.0-37.0); MCV 105.2 fL (80.0-100.0); Macrocytosis Marked; Mean Platelet Volume 7.3; Monocytes # (A) 0.5 k/uL (0-1.0); Monocytes % (A) 5 %; Neutrophils # (A) 8.7 k/uL (1.3-7.7); Neutrophils % (A) 86 %; RBC 2.86 m/uL (3.80-5.40); RDW 24.5 % (11.5-15.5); WBC 10.1 k/uL (3.8-10.6)
[2016-10-10 05:01] LABS: HGB 9.2 gm/dL (11.4-16.0)
[2016-10-10 05:13] LABS: Calcium 9.6 mg/dL (8.4-10.2); Potassium 4.7 mmol/L (3.5-5.1); Total Bilirubin 2.6 mg/dL (0.2-1.3); Total Protein 7.1 g/dL (6.3-8.2)
[2016-10-10] MEDS: LEVOTHYROXINE 50 MCG TAB PO SCH (05:53)
[2016-10-10] MEDS: PANTOPRAZOLE 40 MG TABLET PO SCH ×2 (08:47→16:38)
[2016-10-10] MEDS: SILDENAFIL 20 MG TAB PO SCH ×3 (08:47→21:08)
--- NOTE | 2016-10-10 09:56 | XR ---
EXAMINATION TYPE: XR chest 1V portable DATE OF EXAM: 10/10/2016 9:51 AM COMPARISON: 10/08/2016 HISTORY: Shortness of breath FINDINGS: There are bilateral pleural effusions with cardiomegaly and bibasilar infiltrate. There is a diffuse interstitial pattern. Cardiac device with multiple leads noted. Arthropathy shoulders. Chronic rib d eformities. IMPRESSION: 1. Stable findings compatible with CHF and pulmonary edema with bilateral effusion.
--- NOTE | 2016-10-10 10:34 | P.PN ---
Subjective Principal diagnosis: Acute on chronic renal failure, acute congestive heart failure exacerbation, anemia Patient is a 71-year-old female who presented to [facility] with severe shortness of breath and severe weakness, she had evidence of worsening of her kidney function, and evidence of acute congestive heart failure exacerbation she was admitted to ICU. Patient was started on IV Lasix drip yesterday she was also started on IV dopamine drip to improve kidney perfusion. Kidney function has been stable since yesterday. Objective - Vital Signs Vital signs: Vital Signs Temp 98.2 F 10/10/16 08:00 Pulse 100 10/10/16 09:00 Resp 12 10/10/16 09:00 BP 94/61 10/10/16 09:00 Pulse Ox 96 10/10/16 09:00 Intake & Output 10/09/16 10/10/16 10/10/16 18:59 06:59 18:59 Intake Total 160 370 20 Output Total 650 700 425 Balance -490 -330 -405 Weight 82.1 kg 84.4 kg Intake: IV 160 60 20 Sodium Chloride 0.9% 1, 160 60 20 000 ml @ 20 mls/hr IV . Q24H [facility] Rx#:[id number] Blood Product 0 310 Rc Pheresis 2 As3 Unit 0 310 [id number] Output: Urine 650 700 425 Other: Voiding Method Indwelling Catheter Indwelling Catheter - Exam In general patient is alert and oriented 3 in no apparent distress HEENT head normocephalic and atraumatic Neck is supple no JVD no goiter no lymphadenopathy Chest exam reveals a few scattered crackles in both lung copeland no wheezing Cardiac exam reveals regular heart sounds S1 and S2 no gallops no murmurs Abdomen is soft nontender no organomegaly, was normal bowel sounds Extremity exam reveals 2+ edema no cyanosis or clubbing - Labs CBC & Chem 7: 10/10/16 04:46 10/10/16 04:46 Labs: Abnormal Lab Results - Last 24 Hours (Table) 10/09/16 10/09/16 10/10/16 Range/Units 05:00 17:55 04:46 RBC 2.86 L (3.80-5.40) m/uL Hgb 9.2 L D (11.4-16.0) gm/dL Hct 30.1 L (34.0-46.0) % MCV 105.2 H (80.0-100.0) fL MCHC 30.6 L (31.0-37.0) g/dL RDW 24.5 H (11.5-15.5) % Neutrophils # 8.7 H (1.3-7.7) k/uL Lymphocytes # 0.6 L (1.0-4.8) k/uL Sodium (137-145) mmol/L Chloride (98-107) mmol/L BUN (7-17) mg/dL Creatinine (0.52-1.04) mg/dL % Saturation 10.6 L (20-50) % Total Bilirubin (0.2-1.3) mg/dL AST (14-36) U/L Urine Protein Trace H (Negative) 10/10/16 Range/Units 04:46 RBC (3.80-5.40) m/uL Hgb (11.4-16.0) gm/dL Hct (34.0-46.0) % MCV (80.0-100.0) fL MCHC (31.0-37.0) g/dL RDW (11.5-15.5) % Neutrophils # (1.3-7.7) k/uL Lymphocytes # (1.0-4.8) k/uL Sodium 129 L (137-145) mmol/L Chloride 92 L (98-107) mmol/L BUN 115 H* (7-17) mg/dL Creatinine 2.40 H (0.52-1.04) mg/dL % Saturation (20-50) % Total Bilirubin 2.6 H (0.2-1.3) mg/dL AST 38 H (14-36) U/L Urine Protein (Negative) Assessment and Plan Plan: #1 acute renal failure related to dehydration due to diuretic use and due to cardiorenal syndrome #2 severe cardiomyopathy with ejection fraction 20-25% #3 underlying history of pulmonary hypertension #4 underlying history of anemia #5 hyperkalemia on presentation #6 hyponatremia #7 underlying history of gout #8 hypotension At this time patient is maintained on IV Lasix drip and IV dopamine drip she received 1 unit of red blood cell transfusion yesterday she is doing somewhat better Will monitor closely
[2016-10-10] MEDS: MULTIVITAMINS, THERA 1 EACH TAB PO SCH (12:36)
--- NOTE | 2016-10-10 15:29 | PN ---
Patient is seen for followup for acute kidney injury. She has been treated for fluid overload and CHF exacerbation, currently maintained on Lasix drip. She is also on dopamine. She is complaining of mild shortness of breath. On examination, blood pressure is 89/61, heart rate 99 per minute. Urine output was about 975 mL last 12 hours. Patient has an indwelling Hernandez catheter. EXAMINATION OF THE HEART: S1 and S2. EXAMINATION OF THE LUNGS: Bilateral breath sounds are heard. Decreased breath sounds in the bases. Crackles are heard. ABDOMEN: Soft, nontender. Examination of lower extremities shows edema 2+ bilaterally. 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 Labs show serum creatinine 2.4, sodium 129, potassium 4.7. Hemoglobin 9.2 g/dL. ASSESSMENT: 1. Acute kidney injury, cardiorenal, currently nonoliguric, maintained on IV Lasix drip and dopamine, which we can continue. Her heart rate is stable for now. 2. Severe cardiomyopathy systolic heart failure with ejection fraction 20% to 25%. 3. Severe tricuspid regurgitation, moderate pulmonary hypertension. 4. Anemia with evidence of iron deficiency. 5. Hyperkalemia associated with acute kidney injury, currently improved. 6. Chronic kidney disease secondary to nephrosclerosis and chronic heart failure. Previous creatinine about 1 to 1.2 in March of last year; now staying close to 2 on the creatinine. 7. Hypervolemic hyponatremia, improving with diuresis. PLAN: Continue IV Lasix. Patient may need dobutamine as well if renal function and diuresis does not improve. I will start her on IV iron as well.
[2016-10-10] MEDS: FUROSEMIDE 250 MG in SODIUM CHLORIDE 0.9% 225 ML IVP SCH (16:38)
[2016-10-10] MEDS: RIVAROXABAN 15 MG TAB PO SCH (16:38)
[2016-10-10] MEDS: FERROUS SULFATE 325 MG TAB PO SCH (16:38)
[2016-10-10] MEDS: FOLIC ACID 1 MG TAB PO SCH (16:38)
--- NOTE | 2016-10-10 20:02 | P.PN ---
Subjective This patient remains comfortable. Patient's hemodynamics and input and output and left vestibule. No orthopnea or PND is noted. Objective - Vital Signs Vital signs: Vital Signs Temp 98.2 F 10/10/16 12:00 Pulse 98 10/10/16 16:00 Resp 18 10/10/16 16:00 BP 94/53 10/10/16 16:00 Pulse Ox 95 10/10/16 16:00 Intake & Output 10/10/16 10/10/16 10/11/16 06:59 18:59 07:59 Intake Total 370 282.167 Output Total 700 2075 Balance -330 -1792.833 Weight 84.4 kg Intake: IV 60 40 Sodium Chloride 0.9% 1, 60 40 000 ml @ 20 mls/hr IV . Q24H [facility] Rx#:[id number] Intake, IV Titration 242.167 Amount Furosemide 250 mg In 242.167 Sodium Chloride 0.9% 225 ml @ 10 MG/HR 10 mls/hr IVP .Q24H [facility] Rx#: [id number] Blood Product 310 Rc Pheresis 2 As3 Unit 310 [id number] Output: Urine 700 2075 Other: Voiding Method Indwelling Catheter Indwelling Catheter - Exam Patient is laying comfortably in no respiratory distress noted. Vital signs are reviewed. Heart first and second heart sounds are normal. Lungs bilateral scattered wheezes noted. Monitor shows paced rhythm. - Labs CBC & Chem 7: 10/10/16 04:46 10/10/16 04:46 Labs: Abnormal Lab Results - Last 24 Hours (Table) 10/10/16 10/10/16 Range/Units 04:46 04:46 RBC 2.86 L (3.80-5.40) m/uL Hgb 9.2 L D (11.4-16.0) gm/dL Hct 30.1 L (34.0-46.0) % MCV 105.2 H (80.0-100.0) fL MCHC 30.6 L (31.0-37.0) g/dL RDW 24.5 H (11.5-15.5) % Neutrophils # 8.7 H (1.3-7.7) k/uL Lymphocytes # 0.6 L (1.0-4.8) k/uL Sodium 129 L (137-145) mmol/L Chloride 92 L (98-107) mmol/L BUN 115 H* (7-17) mg/dL Creatinine 2.40 H (0.52-1.04) mg/dL Total Bilirubin 2.6 H (0.2-1.3) mg/dL AST 38 H (14-36) U/L Assessment and Plan Plan: We will continue the current treatment at present [place] is responding to the IV Lasix and dopamine. We will check the chest x-ray tomorrow.
[2016-10-10] MEDS: SODIUM CHLORIDE 0.9% 1,000 ML IV SCH (21:05)
[2016-10-10] MEDS: ALPRAZolam 0.25 MG TAB PO PRN (23:06)
[2016-10-11] MEDS: DEXTROSE/WATER 1 500ML.BAG with DOPamine DRIP 800 MG IV SCH ×2 (03:14→22:02)
[2016-10-11 05:40] LABS: Glucose,Whole Blood 111 mg/dL (75-99)
[2016-10-11] MEDS: LEVOTHYROXINE 50 MCG TAB PO SCH (06:47)
[2016-10-11 08:03] LABS: Calcium 9.2 mg/dL (8.4-10.2); Magnesium 2.2 mg/dL (1.6-2.3); Potassium 3.7 mmol/L (3.5-5.1)
[2016-10-11] MEDS: SILDENAFIL 20 MG TAB PO SCH ×3 (08:04→22:08)
[2016-10-11] MEDS: PANTOPRAZOLE 40 MG TABLET PO SCH ×2 (08:04→16:50)
[2016-10-11] MEDS: SODIUM FERRIC GLUCONAT-SUCROSE 125 MG in SODIUM CHLORIDE 0.9% 100 ML IVPB SCH (08:04)
--- NOTE | 2016-10-11 10:28 | P.PN ---
Subjective Principal diagnosis: Acute on chronic renal failure, acute congestive heart failure exacerbation, anemia Patient is a 71-year-old female who presented to [facility] with severe shortness of breath and severe weakness, she had evidence of worsening of her kidney function, and evidence of acute congestive heart failure exacerbation she was admitted to ICU. Patient was started on IV Lasix drip yesterday she was also started on IV dopamine drip to improve kidney perfusion. Kidney function has been stable since yesterday. Objective - Vital Signs Vital signs: Vital Signs Temp 98.1 F 10/11/16 07:57 Pulse 98 10/11/16 07:57 Resp 18 10/11/16 07:57 BP 95/59 10/11/16 07:57 Pulse Ox 96 10/11/16 07:57 Intake & Output 10/10/16 10/11/16 10/11/16 17:59 06:59 18:59 Intake Total Output Total Balance Weight Intake: IV Sodium Chloride 0.9% 1, 000 ml @ 20 mls/hr IV . Q24H [facility] Rx#:[id number] Intake, IV Titration Amount Dextrose/Water 1 500ml. bag @ 5 MCG/KG/MIN 15.39 mls/hr IV .Q24H [facility] with DOPamine DRIP 800 mg Rx#: [id number] Furosemide 250 mg In Sodium Chloride 0.9% 225 ml @ 10 MG/HR 10 mls/hr IVP .Q24H [facility] Rx#: [id number] Output: Urine Other: Voiding Method Indwelling Catheter - Exam In general patient is alert and oriented 3 in no apparent distress HEENT head normocephalic and atraumatic Neck is supple no JVD no goiter no lymphadenopathy Chest exam reveals a few scattered crackles in both lung copeland no wheezing Cardiac exam reveals regular heart sounds S1 and S2 no gallops no murmurs Abdomen is soft nontender no organomegaly, was normal bowel sounds Extremity exam reveals 2+ edema no cyanosis or clubbing - Labs CBC & Chem 7: 10/10/16 04:46 10/11/16 07:11 Labs: Abnormal Lab Results - Last 24 Hours (Table) 10/11/16 10/11/16 Range/Units 05:39 07:11 Sodium 130 L (137-145) mmol/L Chloride 89 L (98-107) mmol/L BUN 97 H* (7-17) mg/dL Creatinine 1.91 H (0.52-1.04) mg/dL Glucose 104 H (74-99) mg/dL POC Glucose (mg/dL) 111 H (75-99) mg/dL Assessment and Plan Plan: #1 acute renal failure related to dehydration due to diuretic use and due to cardiorenal syndrome #2 severe cardiomyopathy with ejection fraction 20-25% #3 underlying history of pulmonary hypertension #4 underlying history of anemia #5 hyperkalemia on presentation #6 hyponatremia #7 underlying history of gout #8 hypotension At this time patient is maintained on IV Lasix drip and IV dopamine drip she received 1 unit of red blood cell transfusion . she is doing somewhat better. She was transferred out of ICU to telemetry floor Will monitor closely
[2016-10-11] MEDS: MULTIVITAMINS, THERA 1 EACH TAB PO SCH (11:15)
--- NOTE | 2016-10-11 12:32 | PN ---
Patient is seen for followup for acute kidney injury, mainly cardiorenal. She is maintained on dopamine and Lasix drip and she currently has had good urine output and remains in negative balance. She was -3 L yesterday. She has an indwelling Hernandez catheter. On examination, blood pressure is 96/59, heart rate 99 per minute. She is afebrile. Examination of the, heart S1 and S2. Examination of the lungs, decreased breath sounds at the bases, basal crackles are heard. Abdomen is soft, nontender. Examination of lower extremities shows edema with chronic skin changes, edema about 1+ bilaterally. Labs show sodium 130, potassium 3.7, BUN 97, serum creatinine 1.9, hemoglobin 9.2 g/dL. ASSESSMENT: 1. Acute kidney injury, cardiorenal, currently improving. Continue with dopamine and Lasix drip. 2. Hypervolemic hyponatremia, improving with diuresis. 3. Severe cardiomyopathy, ejection fraction of about 20%. 4. Severe tricuspid regurgitation, moderate pulmonary hypertension. 5. Hyperkalemia initially, currently improved. 6. Chronic kidney disease secondary to nephrosclerosis and chronic heart failure with serum creatinine about 1 to 1.2 in March of last year. 7. Anemia with severe iron-deficiency, maintained on IV iron. PLAN: Continue Lasix and dopamine. Repeat labs in a.m.
--- NOTE | 2016-10-11 14:54 | XR ---
EXAMINATION TYPE: XR chest 1V portable DATE OF EXAM: 10/11/2016 2:45 PM CLINICAL HISTORY: Difficulty breathing progress study. TECHNIQUE: Single AP portable upright view of the chest is obtained. COMPARISON: Chest x-ray from one day earlier FINDINGS: There is persisting cardiomegaly with multi lead pacemaker/AICD. There is increasing bilat eral central opacity consistent with worsening edema and congestion. Nonvisualized left heart border and hemidiaphragm could reflect underlying infiltrate at this level. Clinical correlation is advised. There are suspected small bilateral pleural effusions. Osseous structures are demineralized. Degener ative change left glenohumeral joint is noted. IMPRESSION: There is cardiomegaly with worsening central vascular congestion and alveolar edema, find ings are consistent with CHF exacerbation progression.
[2016-10-11] MEDS: FOLIC ACID 1 MG TAB PO SCH (16:49)
[2016-10-11] MEDS: FERROUS SULFATE 325 MG TAB PO SCH (16:49)
[2016-10-11] MEDS: RIVAROXABAN 15 MG TAB PO SCH (16:50)
[2016-10-11] MEDS: FUROSEMIDE 250 MG in SODIUM CHLORIDE 0.9% 225 ML IVP SCH (17:37)
--- NOTE | 2016-10-11 19:36 | P.PN ---
Subjective This patient is admitted for congestive cardiac failure he is comfortable she denies any orthopnea or PND patient's urine output is fair. Creatinine is 1.9. Objective - Vital Signs Vital signs: Vital Signs Temp 97.7 F 10/11/16 16:00 Pulse 101 H 10/11/16 16:00 Resp 18 10/11/16 16:00 BP 84/57 10/11/16 16:00 Pulse Ox 92 L 10/11/16 16:00 Intake & Output 10/11/16 10/11/16 10/12/16 06:59 18:59 06:59 Intake Total 239.833 Output Total 1000 Balance -760.167 Weight Intake: IV Sodium Chloride 0.9% 1, 000 ml @ 20 mls/hr IV . Q24H FERMÍN Rx#:[id number] Intake, IV Titration 239.833 Amount Dextrose/Water 1 500ml. bag @ 2.5 MCG/KG/MIN 7.69 mls/hr IV .Q24H FERMÍN with DOPamine DRIP 800 mg Rx# :[id number] Furosemide 250 mg In 239.833 Sodium Chloride 0.9% 225 ml @ 10 MG/HR 10 mls/hr IVP .Q24H FERMÍN Rx#: [id number] Output: Urine 1000 Other: Voiding Method Indwelling Catheter - Exam Patient's vital signs are reviewed. This and is comfortable without any acute respiratory distress. Heart first and second heart sounds are heard. Lungs bilateral basal rales and rhonchi are noted. - Labs CBC & Chem 7: 10/10/16 04:46 10/11/16 07:11 Labs: Abnormal Lab Results - Last 24 Hours (Table) 10/11/16 10/11/16 Range/Units 05:39 07:11 Sodium 130 L (137-145) mmol/L Chloride 89 L (98-107) mmol/L BUN 97 H* (7-17) mg/dL Creatinine 1.91 H (0.52-1.04) mg/dL Glucose 104 H (74-99) mg/dL POC Glucose (mg/dL) 111 H (75-99) mg/dL Assessment and Plan Plan: We will continue the current Lasix drip. Dopamine is decreased to 2.5 mics per KG. We will repeat the chest x-ray.
[2016-10-11] MEDS: SODIUM CHLORIDE 0.9% 1,000 ML IV SCH (22:02)
[2016-10-12 06:31] LABS: Anisocytosis Moderate; Basophils % (A) 0 %; CH 33.2; CHCM 31.4; Eosinophils # (A) 0.1 k/uL (0-0.7); Eosinophils % (A) 1 %; HCT 30.4 % (34.0-46.0); HDW 3.18; HGB 9.2 gm/dL (11.4-16.0); Hypochromasia Moderate; Luc # (Auto) 0.14; Luc % (Auto) 1; Lymphocytes # (A) 0.6 k/uL (1.0-4.8); Lymphocytes % (A) 5 %; MCH 32.5 pg (25.0-35.0); MCHC 30.4 g/dL (31.0-37.0); Macrocytosis Marked; Mean Platelet Volume 7.6; Monocytes # (A) 0.4 k/uL (0-1.0); Monocytes % (A) 4 %; Neutrophils # (A) 9.2 k/uL (1.3-7.7); Neutrophils % (A) 89 %; RBC 2.84 m/uL (3.80-5.40); RDW 23.9 % (11.5-15.5); WBC 10.4 k/uL (3.8-10.6); WBC (Perox) 10.23
[2016-10-12 06:38] LABS: Calcium 8.9 mg/dL (8.4-10.2); Potassium 3.7 mmol/L (3.5-5.1); Total Bilirubin 2.7 mg/dL (0.2-1.3); Total Protein 6.9 g/dL (6.3-8.2)
[2016-10-12] MEDS: LEVOTHYROXINE 50 MCG TAB PO SCH (06:38)
[2016-10-12] MEDS: PANTOPRAZOLE 40 MG TABLET PO SCH ×2 (08:41→16:58)
[2016-10-12] MEDS: SILDENAFIL 20 MG TAB PO SCH ×3 (08:42→20:59)
[2016-10-12] MEDS: SODIUM FERRIC GLUCONAT-SUCROSE 125 MG in SODIUM CHLORIDE 0.9% 100 ML IVPB SCH (10:00)
--- NOTE | 2016-10-12 12:34 | CDI ---
In responding to this query, please exercise your independent professional judgment. The [facility] Coding Staff and Clinical Documentation Specialists appreciate your assistance in clarifying documentation, maintaining compliance with coding guidelines, accurately documenting patients condition and capturing severity of illness. The fact that a question is asked does not imply that any particular answer is desired or expected. Communication forms are a method of clarifying documentation and are not made part of the Legal Health Record. Thank you in advance for your clarification. Last Revision, June 2015 Dayana Roberts [address] [place] [address] Documentation Clarification Form Date: 10/12/2016 12:19:00 PM From: Lorena Szymanski Admit Date: 10/08/2016 6:31:00 PM Patient Name: Windy Dozier Visit Number: [id number] Dr. 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 Acute Kidney Injury Clinical Indicators : BUN/CR/GFR on admission: 117/2.60/18 Patients Baseline: Creatinine was 1 to 1.2 in March last year per Nephro note on 10/11 Other Labs on admission: K+ 6.2, Na 125, hgb 8.7 Treatment: IV Dopamine IV Lasix Nephro consult In order to capture the severity of condition, please clarify if the condition signifies: CKD Stage 1 (GFR > 90) CKD Stage 2 (GFR 60-89) CKD Stage 3 (GFR 30-59) CKD Stage 4 (GFR 15-29) CKD Stage 5 (GFR <15) ESRD Unable to determine Other condition, please specify Please document in your progress notes and discharge summary in order to capture severity of illness and risk of mortality. Include clinical findings that support your diagnosis. FYI: Press F11 to launch patient chart. Place X here if this finding has no clinical significance, is not applicable or if you are not able to provide any additional documentation. BERTIN
--- NOTE | 2016-10-12 12:41 | CDI ---
In responding to this query, please exercise your independent professional judgment. The [facility] Coding Staff and Clinical Documentation Specialists appreciate your assistance in clarifying documentation, maintaining compliance with coding guidelines, accurately documenting patients condition and capturing severity of illness. The fact that a question is asked does not imply that any particular answer is desired or expected. Communication forms are a method of clarifying documentation and are not made part of the Legal Health Record. Thank you in advance for your clarification. Last Revision, October 2015 Dayana Roberts [address] [facility] [place] [address] Documentation Clarification Form Date: 10/12/2016 12:37:00 PM From: Lorena Szymanski Admit Date: 10/08/2016 6:31:00 PM Patient Name: Windy Dozier Visit Number: [id number] Dr. Armen Jackson History/Risk Factors: Exsmoker Home oxygen Home Nebulizer COPD CHF Clinical Indicators: Per history patient has home O2 Treatment: O2 nasal cannula In your professional opinion, can you please clarify if these findings signify one of the following conditions? o Chronic Respiratory failure with hypercapnia o Chronic Respiratory failure with hypoxia o Other Diagnosis, please specify o Unable to determine Please document in your progress notes and discharge summary in order to capture severity of illness and risk of mortality. Include clinical findings that support your diagnosis. FYI: Press F11 to launch patient chart. Place X here if this finding has no clinical significance, is not applicable or if you are not able to provide any additional documentation. BERTIN
[2016-10-12] MEDS: MULTIVITAMINS, THERA 1 EACH TAB PO SCH (12:48)
[2016-10-12] MEDS ORDERED: ONDANSETRON 4 MG/2 ML VIAL IVP PRN (14:32)
[2016-10-12] MEDS: FUROSEMIDE 250 MG in SODIUM CHLORIDE 0.9% 225 ML IVP SCH (14:33)
--- NOTE | 2016-10-12 14:38 | P.PN ---
Subjective Acute on chronic renal failure, acute congestive heart failure exacerbation, anemia Patient is a 71-year-old female who presented to [facility] with severe shortness of breath and severe weakness, she had evidence of worsening of her kidney function, and evidence of acute congestive heart failure exacerbation she was admitted to ICU. Patient was started on IV Lasix drip yesterday she was also started on IV dopamine drip to improve kidney perfusion. 10/12/2016 patient is sitting at bedside chair. She reports that her shortness of breath is improving. She remains on a Lasix drip and dopamine. Chest x-ray shows worsening vascular congestion. Cardiology is following. Patient denies chest pain. Denies any nausea or vomiting. denies any difficulty urinating. Objective - Vital Signs Vital signs: Vital Signs Temp 98.0 F 10/12/16 08:00 Pulse 103 H 10/12/16 08:00 Resp 18 10/12/16 08:00 BP 89/47 10/12/16 08:00 Pulse Ox 92 L 10/12/16 08:00 Intake & Output 10/11/16 10/12/16 10/12/16 18:59 06:59 18:59 Intake Total 239.833 313.07 300 Output Total 1000 3100 800 Balance -760.167 -2786.93 -500 Weight 79.3 kg Intake: IV 113.07 Dextrose/Water 1 500ml. 23.07 bag @ 2.5 MCG/KG/MIN 7.69 mls/hr IV .Q24H FERMÍN with DOPamine DRIP 800 mg Rx# :[id number] Furosemide 250 mg In 30 Sodium Chloride 0.9% 225 ml @ 10 MG/HR 10 mls/hr IVP .Q24H FERMÍN Rx#: [id number] Sodium Chloride 0.9% 1, 60 000 ml @ 20 mls/hr IV . Q24H FERMÍN Rx#:[id number] Intake, IV Titration 239.833 Amount Furosemide 250 mg In 239.833 Sodium Chloride 0.9% 225 ml @ 10 MG/HR 10 mls/hr IVP .Q24H FERMÍN Rx#: [id number] Oral 200 300 Output: Urine 1000 3100 800 Uretheral (Hernandez) 1200 Other: Voiding Method Indwelling Catheter Indwelling Catheter Indwelling Catheter - Exam Head normocephalic Neck supple Lungs diminished with crackles at the bases Heart regular rate and rhythm S1-S2, no rub or gallop Abdomen is soft nontender nondistended positive bowel sounds no hepatosplenomegaly Extremities +1 edema bilateral lower extremities Neuro alert and orientated to 3 - Labs CBC & Chem 7: 10/12/16 06:04 10/12/16 06:04 Labs: Abnormal Lab Results - Last 24 Hours (Table) 10/12/16 10/12/16 Range/Units 06:04 06:04 RBC 2.84 L (3.80-5.40) m/uL Hgb 9.2 L (11.4-16.0) gm/dL Hct 30.4 L (34.0-46.0) % MCV 107.0 H (80.0-100.0) fL MCHC 30.4 L (31.0-37.0) g/dL RDW 23.9 H (11.5-15.5) % Neutrophils # 9.2 H (1.3-7.7) k/uL Lymphocytes # 0.6 L (1.0-4.8) k/uL Sodium 132 L (137-145) mmol/L Chloride 91 L (98-107) mmol/L BUN 84 H* (7-17) mg/dL Creatinine 1.64 H (0.52-1.04) mg/dL Total Bilirubin 2.7 H (0.2-1.3) mg/dL AST 39 H (14-36) U/L Assessment and Plan Plan: #1 acute renal failure related to dehydration due to diuretic use and due to cardiorenal syndrome. Nephrology is following. Kidney functions are showing improvement. Continue with Lasix drip and dopamine #2 acute on chronic systolic CHF exacerbation with severe cardiomyopathy with ejection fraction 20-25%. Currently on IV Lasix drip. Cardiology following. #3 underlying history of pulmonary hypertension #4 underlying history of anemia #5 hyperkalemia on presentation #6 hypervolemic hyponatremia: Improving with Lasix. Sodium 132. Nephrology following. #7 underlying history of gout #8 hypotension #9 iron deficiency anemia. Receiving IV iron. Hemoglobin 9.2 #10 history of atrial fibrillation on Xarelto #11 chronic respiratory failure home O2 dependent
[2016-10-12] MEDS: FERROUS SULFATE 325 MG TAB PO SCH (18:12)
[2016-10-12] MEDS: RIVAROXABAN 15 MG TAB PO SCH (18:13)
[2016-10-12] MEDS: FOLIC ACID 1 MG TAB PO SCH (18:13)
--- NOTE | 2016-10-12 19:13 | PN ---
Patient is seen for followup for acute kidney injury, mainly cardiorenal. She is maintained on Lasix drip and dopamine drip. Her renal function continues to improve and volume status has also been improving. On examination, blood pressure is 93/54, heart rate 95 per minute. She is afebrile. EXAMINATION OF THE HEART: S1 and S2. EXAMINATION OF LUNGS: Good air entry bilaterally. Examination of lower extremities shows edema 2+ bilaterally. [employer] exam is grossly intact. Patient is moving all 4 extremities. Labs show sodium 132, potassium 3.7, BUN 84, serum creatinine 1.64, hemoglobin 9.2 g/dL. ASSESSMENT: 1. Acute kidney injury, cardiorenal, currently improving with inotropes and Lasix drip. Will continue current regimen, as patient continues to improve clinically. 2. Hypervolemic hyponatremia, improving with diuresis. 3. Severe cardiomyopathy; ejection fraction of less than 20%. 4. Anemia with evidence of iron deficiency, maintained on IV iron, which we will discontinue on the . 5. Hypothyroidism. PLAN: Continue current regimen. Repeat labs in a.m.
[2016-10-12] MEDS: DEXTROSE/WATER 1 500ML.BAG with DOPamine DRIP 800 MG IV SCH (20:59)
[2016-10-12] MEDS: SODIUM CHLORIDE 0.9% 1,000 ML IV SCH (21:00)
--- NOTE | 2016-10-12 22:28 | PN ---
This patient was admitted with congestive cardiac failure. She is feeling better. She is more alert and awake. There is no evidence of any respiratory distress. Patient is afebrile. Oxygen saturation is 95%. Blood pressure is 90/55 mmHg. First and second heart sounds are normal. Lung examination still reveals bilateral rales in the lower one third of the lung [place]. Patient's creatinine is 1.64. We will wean her off the dobutamine and continue the Lasix drip.
[2016-10-13] MEDS: DEXTROSE/WATER 1 500ML.BAG with DOPamine DRIP 800 MG IV SCH (06:12)
[2016-10-13] MEDS: LEVOTHYROXINE 50 MCG TAB PO SCH (06:14)
[2016-10-13 06:39] LABS: Anisocytosis Moderate; Basophils % (A) 0 %; CH 33.9; CHCM 32.6; Eosinophils # (A) 0.1 k/uL (0-0.7); Eosinophils % (A) 1 %; HCT 28.3 % (34.0-46.0); HDW 3.28; HGB 8.9 gm/dL (11.4-16.0); Hypochromasia Slight; Luc # (Auto) 0.21; Luc % (Auto) 2; Lymphocytes # (A) 0.5 k/uL (1.0-4.8); Lymphocytes % (A) 4 %; MCH 33.1 pg (25.0-35.0); MCHC 31.4 g/dL (31.0-37.0); MCV 105.3 fL (80.0-100.0); Macrocytosis Marked; Mean Platelet Volume 7.8; Monocytes # (A) 0.5 k/uL (0-1.0); Monocytes % (A) 5 %; Neutrophils # (A) 9.2 k/uL (1.3-7.7); Neutrophils % (A) 88 %; RBC 2.69 m/uL (3.80-5.40); RDW 23.8 % (11.5-15.5); WBC 10.5 k/uL (3.8-10.6); WBC (Perox) 10.61
[2016-10-13 07:03] LABS: Calcium 8.7 mg/dL (8.4-10.2); Potassium 3.6 mmol/L (3.5-5.1); Total Bilirubin 2.3 mg/dL (0.2-1.3); Total Protein 6.5 g/dL (6.3-8.2)
[2016-10-13] MEDS: PANTOPRAZOLE 40 MG TABLET PO SCH ×2 (08:59→15:45)
[2016-10-13] MEDS: SILDENAFIL 20 MG TAB PO SCH ×3 (09:53→20:27)
--- NOTE | 2016-10-13 10:06 | P.PN ---
Subjective Patient is seen in follow-up for acute kidney injury. Patient presented with dyspnea and hypotension. She does have systolic CHF with ejection fraction of 20% with severe tricuspid regurgitation and moderate pulmonary hypertension. She is currently maintained on Lasix drip as well as dobutamine drip. She is maintaining a net negative fluid balance. Dyspnea is improved. Appetite is good. No vomiting or diarrhea. Vital signs are stable. General: The patient appeared well nourished and normally developed. HEENT: Head exam is unremarkable. Neck is without jugular venous distension. LUNGS: Lungs are clear to auscultation and percussion. Breath sounds decreased. HEART: Rate and Rhythm are regular. First and second heart sounds normal. No murmurs, rubs or gallops. ABDOMEN: Abdominal exam reveals normal bowel sounds. Non-tender and non- distended. No evidence of peritonitis. EXTREMITITES: Trace edema. Objective - Vital Signs Vital signs: Vital Signs Temp 98.0 F 10/13/16 07:55 Pulse 99 10/13/16 08:52 Resp 18 10/13/16 08:52 BP 83/54 10/13/16 07:55 Pulse Ox 95 10/13/16 07:55 Intake & Output 10/12/16 10/13/16 10/13/16 18:59 06:59 18:59 Intake Total 991.333 120 Output Total 800 600 Balance 191.333 -600 120 Weight 82.1 kg Intake: IV 362 Dextrose/Water 1 500ml. 108 bag @ 2.5 MCG/KG/MIN 7.69 mls/hr IV .Q24H FERMÍN with DOPamine DRIP 800 mg Rx# :[id number] Furosemide 250 mg In 94 Sodium Chloride 0.9% 225 ml @ 10 MG/HR 10 mls/hr IVP .Q24H FERMÍN Rx#: [id number] Invasive Line 3 20 Sodium Chloride 0.9% 1, 140 000 ml @ 20 mls/hr IV . Q24H FERMÍN Rx#:[id number] Intake, IV Titration 209.333 Amount Furosemide 250 mg In 209.333 Sodium Chloride 0.9% 225 ml @ 10 MG/HR 10 mls/hr IVP .Q24H FERMÍN Rx#: [id number] Oral 420 120 Output: Urine 800 600 Other: Voiding Method Indwelling Catheter Indwelling Catheter Indwelling Catheter - Labs CBC & Chem 7: 10/13/16 06:10 10/13/16 06:10 Labs: Abnormal Lab Results - Last 24 Hours (Table) 10/13/16 10/13/16 Range/Units 06:10 06:10 RBC 2.69 L (3.80-5.40) m/uL Hgb 8.9 L (11.4-16.0) gm/dL Hct 28.3 L (34.0-46.0) % MCV 105.3 H (80.0-100.0) fL RDW 23.8 H (11.5-15.5) % Neutrophils # 9.2 H (1.3-7.7) k/uL Lymphocytes # 0.5 L (1.0-4.8) k/uL Sodium 133 L (137-145) mmol/L Chloride 92 L (98-107) mmol/L BUN 73 H (7-17) mg/dL Creatinine 1.50 H (0.52-1.04) mg/dL Total Bilirubin 2.3 H (0.2-1.3) mg/dL Albumin 3.4 L (3.5-5.0) g/dL Assessment and Plan Plan: Assessment: #1. Nonoliguric acute kidney injury secondary to ATN secondary to cardiorenal syndrome. Creatinine improved to 1.5 today. It was 2.6 on admission. #2. Hyperkalemia secondary to acute kidney injury and potassium supplementation. Resolved. #3. Hyponatremia. Appears hypervolemic in nature. Diuresis. #4. Chronic hypotension related to underlying cardiac status. #5. Systolic CHF with ejection fraction of 20% with severe tricuspid regurgitation and moderate pulmonary hypertension. #6. Anemia. Iron deficiency present Plan: Maintain dobutamine drip and Lasix drip for now. Encourage oral intake. Avoid nephrotoxic agents and hypotensive episodes. Maintain low salt and 1.2 L fluid restricted diet. Continue with IV iron.
[2016-10-13] MEDS: SODIUM FERRIC GLUCONAT-SUCROSE 125 MG in SODIUM CHLORIDE 0.9% 100 ML IVPB SCH (10:59)
[2016-10-13] MEDS: MULTIVITAMINS, THERA 1 EACH TAB PO SCH (12:32)
[2016-10-13] MEDS: FUROSEMIDE 250 MG in SODIUM CHLORIDE 0.9% 225 ML IVP SCH (12:32)
[2016-10-13] MEDS: FERROUS SULFATE 325 MG TAB PO SCH (15:45)
[2016-10-13] MEDS: FOLIC ACID 1 MG TAB PO SCH (15:46)
[2016-10-13] MEDS: RIVAROXABAN 15 MG TAB PO SCH (15:46)
--- NOTE | 2016-10-13 17:13 | P.PN ---
Subjective Principal diagnosis: Acute on chronic renal failure, acute congestive heart failure exacerbation, anemia Patient is a 71-year-old female who presented to [facility] with severe shortness of breath and severe weakness, she had evidence of worsening of her kidney function, and evidence of acute congestive heart failure exacerbation she was admitted to ICU. Patient was started on IV Lasix drip yesterday she was also started on IV dopamine drip to improve kidney perfusion. Kidney function has been stable since yesterday. Objective - Vital Signs Vital signs: Vital Signs Temp 97.7 F 10/13/16 11:44 Pulse 94 10/13/16 11:44 Resp 18 10/13/16 11:44 BP 93/60 10/13/16 11:44 Pulse Ox 98 10/13/16 11:44 Intake & Output 10/12/16 10/13/16 10/13/16 18:59 06:59 18:59 Intake Total 991.333 559.833 Output Total 800 600 550 Balance 191.333 -600 9.833 Weight 82.1 kg Intake: IV 362 Dextrose/Water 1 500ml. 108 bag @ 2.5 MCG/KG/MIN 7.69 mls/hr IV .Q24H FERMÍN with DOPamine DRIP 800 mg Rx# :[id number] Furosemide 250 mg In 94 Sodium Chloride 0.9% 225 ml @ 10 MG/HR 10 mls/hr IVP .Q24H FERMÍN Rx#: [id number] Invasive Line 3 20 Sodium Chloride 0.9% 1, 140 000 ml @ 20 mls/hr IV . Q24H FERMÍN Rx#:[id number] Intake, IV Titration 209.333 219.833 Amount Furosemide 250 mg In 209.333 219.833 Sodium Chloride 0.9% 225 ml @ 10 MG/HR 10 mls/hr IVP .Q24H FERMÍN Rx#: [id number] Oral 420 340 Output: Urine 800 600 550 Other: Voiding Method Indwelling Catheter Indwelling Catheter Indwelling Catheter - Exam In general patient is alert and oriented 3 in no apparent distress HEENT head normocephalic and atraumatic Neck is supple no JVD no goiter no lymphadenopathy Chest exam reveals a few scattered crackles in both lung [place] no wheezing Cardiac exam reveals regular heart sounds S1 and S2 no gallops no murmurs Abdomen is soft nontender no organomegaly, was normal bowel sounds Extremity exam reveals 2+ edema no cyanosis or clubbing - Labs CBC & Chem 7: 10/13/16 06:10 10/13/16 06:10 Labs: Abnormal Lab Results - Last 24 Hours (Table) 10/13/16 10/13/16 Range/Units 06:10 06:10 RBC 2.69 L (3.80-5.40) m/uL Hgb 8.9 L (11.4-16.0) gm/dL Hct 28.3 L (34.0-46.0) % MCV 105.3 H (80.0-100.0) fL RDW 23.8 H (11.5-15.5) % Neutrophils # 9.2 H (1.3-7.7) k/uL Lymphocytes # 0.5 L (1.0-4.8) k/uL Sodium 133 L (137-145) mmol/L Chloride 92 L (98-107) mmol/L BUN 73 H (7-17) mg/dL Creatinine 1.50 H (0.52-1.04) mg/dL Total Bilirubin 2.3 H (0.2-1.3) mg/dL Albumin 3.4 L (3.5-5.0) g/dL Assessment and Plan Plan: #1 acute renal failure related to dehydration due to diuretic use and due to cardiorenal syndrome #2 severe cardiomyopathy with ejection fraction 20-25% #3 underlying history of pulmonary hypertension #4 underlying history of anemia #5 hyperkalemia on presentation #6 hyponatremia #7 underlying history of gout #8 hypotension At this time patient is maintained on IV Lasix drip and IV dopamine drip she received 1 unit of red blood cell transfusion during this admission she is doing somewhat better. she has lost about 4 kg since admission, continue current management Will monitor closely
[2016-10-13] MEDS: SODIUM CHLORIDE 0.9% 1,000 ML IV SCH (20:27)
--- NOTE | 2016-10-13 20:39 | PN ---
This patient has cardiomyopathy with severely impaired left ventricular systolic function. The patient is feeling better. She is sitting in a chair and she is comfortable. Blood pressure is 93/60 mmHg. First and second heart sounds are normal. Lungs reveal a few basal rales; significantly improved as compared to before. There is no evidence of any significant leg edema. Patient's creatinine is 1.50. BUN is 73. We will continue dobutamine for one more day and then wean her off the dobutamine from tomorrow. We will continue the patient on the Lasix drip at present.
[2016-10-13 21:41] LABS: Anisocytosis Moderate; Basophils % (A) 0 %; CH 33.8; CHCM 31.7; Eosinophils # (A) 0.1 k/uL (0-0.7); Eosinophils % (A) 1 %; HCT 29.3 % (34.0-46.0); HGB 8.8 gm/dL (11.4-16.0); Hypochromasia Moderate; Luc # (Auto) 0.14; Luc % (Auto) 2; Lymphocytes # (A) 0.4 k/uL (1.0-4.8); Lymphocytes % (A) 4 %; MCH 32.6 pg (25.0-35.0); MCHC 30.2 g/dL (31.0-37.0); MCV 107.9 fL (80.0-100.0); Macrocytosis Marked; Mean Platelet Volume 7.6; Monocytes # (A) 0.4 k/uL (0-1.0); Monocytes % (A) 4 %; Neutrophils # (A) 8.5 k/uL (1.3-7.7); Neutrophils % (A) 89 %; RBC 2.71 m/uL (3.80-5.40); RDW 23.8 % (11.5-15.5); WBC 9.5 k/uL (3.8-10.6); WBC (Perox) 9.98
[2016-10-13 22:00] LABS: Potassium 3.6 mmol/L (3.5-5.1); Total Bilirubin 2.2 mg/dL (0.2-1.3); Total Protein 6.7 g/dL (6.3-8.2)
[2016-10-14] MEDS: LEVOTHYROXINE 50 MCG TAB PO SCH (06:42)
[2016-10-14] MEDS: HYDROcodone/APAP 10-325MG 1 EACH TAB PO PRN (06:43)
[2016-10-14 06:50] LABS: Anisocytosis Marked; Basophils % (A) 0 %; CH 34.3; CHCM 32.5; Eosinophils # (A) 0.1 k/uL (0-0.7); Eosinophils % (A) 2 %; HCT 29.9 % (34.0-46.0); HDW 3.33; HGB 9.5 gm/dL (11.4-16.0); Hypochromasia Slight; Luc # (Auto) 0.14; Luc % (Auto) 2; Lymphocytes # (A) 0.5 k/uL (1.0-4.8); Lymphocytes % (A) 5 %; MCH 33.8 pg (25.0-35.0); MCHC 31.6 g/dL (31.0-37.0); MCV 107.1 fL (80.0-100.0); Macrocytosis Marked; Mean Platelet Volume 8.4; Monocytes # (A) 0.5 k/uL (0-1.0); Monocytes % (A) 5 %; Neutrophils # (A) 7.9 k/uL (1.3-7.7); Neutrophils % (A) 86 %; RBC 2.79 m/uL (3.80-5.40); RDW 24.5 % (11.5-15.5); WBC 9.2 k/uL (3.8-10.6); WBC (Perox) 9.55
[2016-10-14] MEDS: PANTOPRAZOLE 40 MG TABLET PO SCH ×2 (08:46→16:48)
[2016-10-14] MEDS: SILDENAFIL 20 MG TAB PO SCH ×3 (08:46→21:38)
[2016-10-14 10:43] LABS: Potassium 3.8 mmol/L (3.5-5.1); Total Bilirubin 2.3 mg/dL (0.2-1.3); Total Protein 6.7 g/dL (6.3-8.2)
[2016-10-14] MEDS: MULTIVITAMINS, THERA 1 EACH TAB PO SCH (12:21)
[2016-10-14] MEDS: FUROSEMIDE 250 MG in SODIUM CHLORIDE 0.9% 225 ML IVP SCH (14:16)
--- NOTE | 2016-10-14 15:36 | XR ---
EXAMINATION TYPE: XR chest 1V portable DATE OF EXAM: 10/14/2016 3:14 PM CLINICAL HISTORY: Difficulty breathing progress study. History of CHF. TECHNIQUE: Single AP portable upright view of the chest is obtained. COMPARISON: Chest x-ray from 3 days earlier FINDINGS: There is persisting cardiomegaly with multi lead pacemaker/AICD. There is atherosclerotic thoracic aorta. There is small right pleural effusion. Central opacities bilaterally are slightly imp roved. There is more dense consolidation in the left lower lung silhouetting left heart border and he midiaphragm consistent with infiltrate and/or atelectasis and possible left pleural effusion. Surgica l clips epigastric region are seen. Cholecystectomy clips are noted. Chronic degenerative changes yu ateral humeral heads is redemonstrated. IMPRESSION: There is cardiomegaly with small right pleural effusion and dense left basilar consolidat ion and/or atelectasis with probable left-sided pleural effusion all redemonstrated. There is interva l improvement in moderate central bilateral edema and/or infiltrates.
--- NOTE | 2016-10-14 16:18 | PN ---
Patient is seen for followup for acute kidney injury, mainly cardiorenal. Currently she is maintained on dopamine and Lasix drip. She continues to have good urine output; however, last 24 hours was not as much as previously. Overall patient states she is feeling much better. Blood pressure is staying about 102 to 88 mmHg systolic. Patient is afebrile. Heart rate is 73 per minute. EXAMINATION OF THE HEART: S1 and S2. EXAMINATION OF THE LUNGS: Bilateral breath sounds are heard. ABDOMEN: Soft, nontender. EXAMINATION OF LOWER EXTREMITIES: Chronic skin changes with edema bilaterally 1+, slowly improving. Labs show sodium 132, potassium 3.8, serum creatinine 1.59, BUN 70. Hemoglobin 9.5 g/dL. ASSESSMENT: 1. Acute kidney injury, cardiorenal, currently stable. Patient is maintained on Lasix drip and dopamine. She did not have significant negative balance last 24 hours as compared to the day before. I will continue with the Lasix drip for now. 2. Severe cardiomyopathy with ejection fraction of about 20% and volume overload. 3. Severe tricuspid regurgitation. 4. Moderate pulmonary hypertension. 5. Anemia with significant iron deficiency, maintained on IV iron. 6. Hypervolemic hyponatremia, currently improved. PLAN: Continue with the Lasix drip and dopamine for now. Repeat labs in a.m. Monitor potassium. Restrict oral fluids.
[2016-10-14] MEDS: FOLIC ACID 1 MG TAB PO SCH (16:48)
[2016-10-14] MEDS: RIVAROXABAN 15 MG TAB PO SCH (16:48)
[2016-10-14] MEDS: FERROUS SULFATE 325 MG TAB PO SCH (16:48)
--- NOTE | 2016-10-14 17:39 | P.PN ---
Subjective Principal diagnosis: Acute on chronic renal failure, acute congestive heart failure exacerbation, anemia Patient is a 71-year-old female who presented to [facility] with severe shortness of breath and severe weakness, she had evidence of worsening of her kidney function, and evidence of acute congestive heart failure exacerbation she was initially admitted to ICU. Currently she is on telemetry floor Patient was started on IV Lasix drip yesterday she was also started on IV dopamine drip to improve kidney perfusion. Kidney function improved significantly since admission patient lost about 6-7 pounds since admission Cardiology and nephrology consultation following Objective - Vital Signs Vital signs: Vital Signs Temp 97.4 F L 10/14/16 11:46 Pulse 73 10/14/16 11:46 Resp 18 10/14/16 11:46 BP 88/52 10/14/16 11:46 Pulse Ox 95 10/14/16 11:46 Intake & Output 10/13/16 10/14/16 10/14/16 18:59 06:59 18:59 Intake Total 915.833 490 Output Total 550 800 300 Balance 365.833 -800 190 Intake: IV 136 Dextrose/Water 1 500ml. 43 bag @ 2.5 MCG/KG/MIN 7.69 mls/hr IV .Q24H FERMÍN with DOPamine DRIP 800 mg Rx# :[id number] Furosemide 250 mg In 51 Sodium Chloride 0.9% 225 ml @ 10 MG/HR 10 mls/hr IVP .Q24H FERMÍN Rx#: [id number] Sodium Chloride 0.9% 1, 42 000 ml @ 20 mls/hr IV . Q24H FERMÍN Rx#:[id number] Intake, IV Titration 219.833 250 Amount Furosemide 250 mg In 219.833 250 Sodium Chloride 0.9% 225 ml @ 10 MG/HR 10 mls/hr IVP .Q24H FERMÍN Rx#: [id number] Oral 560 240 Output: Urine 550 800 300 Other: Voiding Method Indwelling Catheter Indwelling Catheter Indwelling Catheter - Exam In general patient is alert and oriented 3 in no apparent distress HEENT head normocephalic and atraumatic Neck is supple no JVD no goiter no lymphadenopathy Chest exam reveals a few scattered crackles in both lung [place] no wheezing Cardiac exam reveals regular heart sounds S1 and S2 no gallops no murmurs Abdomen is soft nontender no organomegaly, was normal bowel sounds Extremity exam reveals 2+ edema no cyanosis or clubbing - Labs CBC & Chem 7: 10/14/16 05:31 10/14/16 09:30 Labs: Abnormal Lab Results - Last 24 Hours (Table) 10/13/16 10/13/16 10/14/16 Range/Units 21:21 21:21 05:31 RBC 2.71 L 2.79 L (3.80-5.40) m/uL Hgb 8.8 L 9.5 L (11.4-16.0) gm/dL Hct 29.3 L 29.9 L (34.0-46.0) % MCV 107.9 H 107.1 H (80.0-100.0) fL MCHC 30.2 L (31.0-37.0) g/dL RDW 23.8 H 24.5 H (11.5-15.5) % Neutrophils # 8.5 H 7.9 H (1.3-7.7) k/uL Lymphocytes # 0.4 L 0.5 L (1.0-4.8) k/uL Sodium 133 L (137-145) mmol/L Chloride 91 L (98-107) mmol/L BUN 67 H (7-17) mg/dL Creatinine 1.59 H (0.52-1.04) mg/dL Glucose 116 H (74-99) mg/dL Total Bilirubin 2.2 H (0.2-1.3) mg/dL Albumin (3.5-5.0) g/dL 10/14/16 Range/Units 09:30 RBC (3.80-5.40) m/uL Hgb (11.4-16.0) gm/dL Hct (34.0-46.0) % MCV (80.0-100.0) fL MCHC (31.0-37.0) g/dL RDW (11.5-15.5) % Neutrophils # (1.3-7.7) k/uL Lymphocytes # (1.0-4.8) k/uL Sodium 132 L (137-145) mmol/L Chloride 92 L (98-107) mmol/L BUN 70 H (7-17) mg/dL Creatinine 1.59 H (0.52-1.04) mg/dL Glucose 104 H (74-99) mg/dL Total Bilirubin 2.3 H (0.2-1.3) mg/dL Albumin 3.4 L (3.5-5.0) g/dL Assessment and Plan Plan: #1 acute renal failure related to dehydration due to diuretic use and due to cardiorenal syndrome #2 severe cardiomyopathy with ejection fraction 20-25% #3 underlying history of pulmonary hypertension #4 underlying history of anemia #5 hyperkalemia on presentation #6 hyponatremia #7 underlying history of gout #8 hypotension At this time patient is maintained on IV Lasix drip and IV dopamine drip she received 1 unit of red blood cell transfusion during this admission she is doing somewhat better. she has lost about 4 kg since admission, continue current management Will monitor closely
--- NOTE | 2016-10-14 18:28 | PN ---
This patient is admitted with acute on chronic systolic heart failure. Patient says she is feeling much better. She denies any orthopnea or PND. She is much more alert and awake. Blood pressure is 90/52 mmHg. First and second heart sounds are normal. Lungs are fairly clear to auscultation and percussion. There is no evidence of any significant leg edema. Patient's creatinine is 1.59. We will continue the current medications. Wean her off the dopamine and continue the Lasix drip. A repeat chest x-ray is ordered.
[2016-10-14] MEDS: SODIUM CHLORIDE 0.9% 1,000 ML IV SCH (21:37)
[2016-10-15 06:19] LABS: Anisocytosis Moderate; Basophils % (A) 1 %; CH 33.8; CHCM 31.2; Eosinophils # (A) 0.2 k/uL (0-0.7); Eosinophils % (A) 2 %; HCT 28.6 % (34.0-46.0); HDW 3.16; HGB 8.5 gm/dL (11.4-16.0); Hypochromasia Moderate; Luc # (Auto) 0.18; Luc % (Auto) 2; Lymphocytes # (A) 0.6 k/uL (1.0-4.8); Lymphocytes % (A) 7 %; MCH 32.6 pg (25.0-35.0); MCHC 29.7 g/dL (31.0-37.0); MCV 109.7 fL (80.0-100.0); Macrocytosis Marked; Mean Platelet Volume 7.5; Monocytes # (A) 0.3 k/uL (0-1.0); Monocytes % (A) 4 %; Neutrophils % (A) 85 %; RBC 2.61 m/uL (3.80-5.40); RDW 23.7 % (11.5-15.5); WBC 8.2 k/uL (3.8-10.6); WBC (Perox) 8.32
[2016-10-15 06:29] LABS: Calcium 8.8 mg/dL (8.4-10.2); Potassium 4.1 mmol/L (3.5-5.1); Total Protein 6.1 g/dL (6.3-8.2)
[2016-10-15 06:30] LABS: Manual Review Performed; Ovalocytes Present
[2016-10-15] MEDS: LEVOTHYROXINE 50 MCG TAB PO SCH (06:46)
[2016-10-15] MEDS: PANTOPRAZOLE 40 MG TABLET PO SCH ×2 (08:49→16:46)
[2016-10-15] MEDS: SILDENAFIL 20 MG TAB PO SCH ×5 (08:50→23:29)
[2016-10-15] MEDS: DEXTROSE/WATER 1 500ML.BAG with DOPamine DRIP 800 MG IV SCH (08:52)
--- NOTE | 2016-10-15 10:05 | P.PN ---
Subjective Patient is seen in follow-up for acute kidney injury. Patient presented with dyspnea and hypotension. She does have systolic CHF with ejection fraction of 20% with severe tricuspid regurgitation and moderate pulmonary hypertension. She is currently maintained on Lasix drip. Dobutamine drip was discontinued on October 14. Urine output documented as about 1400 mL in the last 24 hours. Dyspnea is improved. Appetite is good. No vomiting or diarrhea. Vital signs are stable. General: The patient appeared well nourished and normally developed. HEENT: Head exam is unremarkable. Neck is without jugular venous distension. LUNGS: Lungs are clear to auscultation and percussion. Breath sounds decreased. HEART: Rate and Rhythm are regular. First and second heart sounds normal. No murmurs, rubs or gallops. ABDOMEN: Abdominal exam reveals normal bowel sounds. Non-tender and non- distended. No evidence of peritonitis. EXTREMITITES: 1+ edema. Objective - Vital Signs Vital signs: Vital Signs Temp 97.5 F L 10/15/16 08:00 Pulse 71 10/15/16 08:00 Resp 18 10/15/16 08:00 BP 90/52 10/15/16 08:00 Pulse Ox 99 10/15/16 08:00 Intake & Output 10/14/16 10/15/16 10/15/16 18:59 06:59 18:59 Intake Total 610 350 350 Output Total 300 350 350 Balance 310 0 0 Weight 84.5 kg 84.5 kg Intake: Intake, IV Titration 250 Amount Furosemide 250 mg In 250 Sodium Chloride 0.9% 225 ml @ 10 MG/HR 10 mls/hr IVP .Q24H [facility] Rx#: [id number] Oral 360 350 350 Output: Urine 300 350 350 Other: Voiding Method Indwelling Catheter Indwelling Catheter Indwelling Catheter # Voids 1 # Bowel Movements 0 0 - Labs CBC & Chem 7: 10/15/16 05:43 10/15/16 05:43 Labs: Abnormal Lab Results - Last 24 Hours (Table) 10/14/16 10/15/16 10/15/16 Range/Units 09:30 05:43 05:43 RBC 2.61 L (3.80-5.40) m/uL Hgb 8.5 L (11.4-16.0) gm/dL Hct 28.6 L (34.0-46.0) % MCV 109.7 H (80.0-100.0) fL MCHC 29.7 L (31.0-37.0) g/dL RDW 23.7 H (11.5-15.5) % Lymphocytes # 0.6 L (1.0-4.8) k/uL Sodium 132 L 128 L (137-145) mmol/L Chloride 92 L 92 L (98-107) mmol/L BUN 70 H 76 H (7-17) mg/dL Creatinine 1.59 H 1.60 H (0.52-1.04) mg/dL Glucose 104 H (74-99) mg/dL Total Bilirubin 2.3 H 2.0 H (0.2-1.3) mg/dL Total Protein 6.1 L (6.3-8.2) g/dL Albumin 3.4 L 3.1 L (3.5-5.0) g/dL Assessment and Plan Plan: Assessment: #1. Nonoliguric acute kidney injury secondary to ATN secondary to cardiorenal syndrome. Creatinine stable at 1.6 today. It was 2.6 on admission. #2. Hyperkalemia secondary to acute kidney injury and potassium supplementation. Resolved. #3. Hyponatremia. Appears hypervolemic in nature. #4. Chronic hypotension related to underlying cardiac status. #5. Systolic CHF with ejection fraction of 20% with severe tricuspid regurgitation and moderate pulmonary hypertension. #6. Anemia. Iron deficiency present. Status post 3 doses of IV iron. Plan: Increase Lasix drip to 15 mL an hour. Encourage oral intake, particularly protein. Avoid nephrotoxic agents and hypotensive episodes. Maintain low salt and 1.2 L fluid restricted diet. Repeat electrolytes in the morning.
[2016-10-15] MEDS: FUROSEMIDE 250 MG in SODIUM CHLORIDE 0.9% 225 ML IVP SCH ×4 (10:20→20:47)
[2016-10-15] MEDS ORDERED: LACTULOSE 20 GM/30 ML CUP PO ONE (10:24)
--- NOTE | 2016-10-15 10:30 | P.PN ---
Subjective Acute on chronic renal failure, acute congestive heart failure exacerbation, anemia Patient is a 71-year-old female who presented to [facility] with severe shortness of breath and severe weakness, she had evidence of worsening of her kidney function, and evidence of acute congestive heart failure exacerbation she was admitted to ICU. Patient was started on IV Lasix drip she was also started on IV dopamine drip to improve kidney perfusion. 10/12/2016 patient is sitting at bedside chair. She reports that her shortness of breath is improving. She remains on a Lasix drip and dopamine. Chest x-ray shows worsening vascular congestion. Cardiology is following. Patient denies chest pain. Denies any nausea or vomiting. denies any difficulty urinating. 10/15/2016 patient's breathing is showing improvement. She still remained on any IV Lasix drip. Dopamine drip discontinued yesterday. Patient still having significant lower extremity edema slight improvement noted. Denies any chest pain or shortness breath. Denies any nausea or vomiting. Reports about 4 days since last bowel movement. she is passing gas. She denies any abdominal pain. denies any nausea or vomiting Objective - Vital Signs Vital signs: Vital Signs Temp 97.5 F L 10/15/16 08:00 Pulse 71 10/15/16 08:00 Resp 18 10/15/16 08:00 BP 90/52 10/15/16 08:00 Pulse Ox 99 10/15/16 08:00 Intake & Output 10/14/16 10/15/16 10/15/16 18:59 06:59 18:59 Intake Total 610 350 551.167 Output Total 300 350 350 Balance 310 0 201.167 Weight 84.5 kg 84.5 kg Intake: Intake, IV Titration 250 201.167 Amount Furosemide 250 mg In 0.50 Sodium Chloride 0.9% 225 ml @ 10 MG/HR 10 mls/hr IVP .Q24H [facility] Rx#: [id number] Furosemide 250 mg In 250 200.667 Sodium Chloride 0.9% 225 ml @ 15 MG/HR 15 mls/hr IVP .[id number] [facility] Rx#: [id number] Oral 360 350 350 Output: Urine 300 350 350 Other: Voiding Method Indwelling Catheter Indwelling Catheter Indwelling Catheter # Voids 1 # Bowel Movements 0 0 - Exam Head normocephalic Neck supple Lungs diminished with crackles at the bases Heart regular rate and rhythm S1-S2, no rub or gallop Abdomen is soft nontender nondistended positive bowel sounds no hepatosplenomegaly Extremities 2+ pitting edema bilateral lower extremities Neuro alert and orientated to 3 - Labs CBC & Chem 7: 10/15/16 05:43 10/15/16 05:43 Labs: Abnormal Lab Results - Last 24 Hours (Table) 10/14/16 10/15/16 10/15/16 Range/Units 09:30 05:43 05:43 RBC 2.61 L (3.80-5.40) m/uL Hgb 8.5 L (11.4-16.0) gm/dL Hct 28.6 L (34.0-46.0) % MCV 109.7 H (80.0-100.0) fL MCHC 29.7 L (31.0-37.0) g/dL RDW 23.7 H (11.5-15.5) % Lymphocytes # 0.6 L (1.0-4.8) k/uL Sodium 132 L 128 L (137-145) mmol/L Chloride 92 L 92 L (98-107) mmol/L BUN 70 H 76 H (7-17) mg/dL Creatinine 1.59 H 1.60 H (0.52-1.04) mg/dL Glucose 104 H (74-99) mg/dL Total Bilirubin 2.3 H 2.0 H (0.2-1.3) mg/dL Total Protein 6.1 L (6.3-8.2) g/dL Albumin 3.4 L 3.1 L (3.5-5.0) g/dL Assessment and Plan Plan: #1 acute renal failure related to dehydration due to diuretic use and due to cardiorenal syndrome. Nephrology is following. creatinine at 1.60. Nephrology is following. #2 acute on chronic systolic CHF exacerbation with severe cardiomyopathy with ejection fraction 20-25% andsevere tricuspid regurgitation and moderate pulmonary hypertension. Currently on IV Lasix drip. dopamine drip was discontinued. Cardiology following. #3 underlying history of pulmonary hypertension #4 underlying history of anemia #5 hyperkalemia on presentation #6 hypervolemic hyponatremia: Improving with Lasix. Sodium 132. Nephrology following. #7 underlying history of gout #8 hypotension #9 iron deficiency anemia. patient did require blood transfusion during this admission. As well as IV iron. Hemoglobin 8.5. Continue to monitor. #10 history of atrial fibrillation on Xarelto #11 chronic hypoxic respiratory failure, home O2 dependent #12 hypervolemic hyponatremia: Nephrology following
[2016-10-15] MEDS: DOCUSATE 100 MG CAP PO SCH ×2 (11:50→20:49)
[2016-10-15] MEDS: MULTIVITAMINS, THERA 1 EACH TAB PO SCH (11:50)
[2016-10-15] MEDS: FERROUS SULFATE 325 MG TAB PO SCH (16:46)
[2016-10-15] MEDS: FOLIC ACID 1 MG TAB PO SCH (16:46)
[2016-10-15] MEDS: RIVAROXABAN 15 MG TAB PO SCH (16:46)
--- NOTE | 2016-10-15 17:40 | PN ---
This patient was admitted with congestive heart failure. Patient is feeling better. She is not in any acute respiratory distress. Patient's chest x-ray, however, still shows changes of congestive heart failure. Blood pressure is 90/52 mmHg. First and second heart sounds are normal. Lungs reveal a few scattered rales at the bases. Patient's creatinine is 1.6. We will start the patient on Zaroxolyn 2.5 mg daily. Continue IV Lasix drip at present until the chest x-ray shows improvement.
[2016-10-15] MEDS: SODIUM CHLORIDE 0.9% 1,000 ML IV SCH (20:00)
[2016-10-16] MEDS: LEVOTHYROXINE 50 MCG TAB PO SCH (06:23)
[2016-10-16 06:32] LABS: Anisocytosis Moderate; Basophils % (A) 0 %; CHCM 31.7; Eosinophils # (A) 0.2 k/uL (0-0.7); Eosinophils % (A) 2 %; HCT 27.9 % (34.0-46.0); HDW 3.19; HGB 8.8 gm/dL (11.4-16.0); Hypochromasia Slight; Luc # (Auto) 0.14; Luc % (Auto) 2; Lymphocytes # (A) 0.5 k/uL (1.0-4.8); Lymphocytes % (A) 6 %; MCH 34.2 pg (25.0-35.0); MCHC 31.5 g/dL (31.0-37.0); MCV 108.4 fL (80.0-100.0); Macrocytosis Marked; Mean Platelet Volume 7.5; Monocytes # (A) 0.4 k/uL (0-1.0); Monocytes % (A) 4 %; Neutrophils % (A) 86 %; RBC 2.57 m/uL (3.80-5.40); RDW 23.7 % (11.5-15.5); WBC 9.3 k/uL (3.8-10.6); WBC (Perox) 9.81
[2016-10-16 07:39] LABS: Calcium 8.9 mg/dL (8.4-10.2); Potassium 4.8 mmol/L (3.5-5.1); Total Bilirubin 1.9 mg/dL (0.2-1.3); Total Protein 6.3 g/dL (6.3-8.2)
[2016-10-16 08:18] LABS: Manual Review Performed
[2016-10-16 08:19] LABS: Polychromasia Present
[2016-10-16] MEDS: DOCUSATE 100 MG CAP PO SCH ×2 (08:35→21:01)
[2016-10-16] MEDS: PANTOPRAZOLE 40 MG TABLET PO SCH ×2 (08:35→15:52)
[2016-10-16] MEDS: SILDENAFIL 20 MG TAB PO SCH ×3 (08:36→21:28)
[2016-10-16] MEDS: METOLAZONE 2.5 MG TAB PO SCH (08:36)
[2016-10-16] MEDS: MULTIVITAMINS, THERA 1 EACH TAB PO SCH (08:40)
--- NOTE | 2016-10-16 08:49 | P.PN ---
Subjective Patient is seen in follow-up for acute kidney injury. Patient presented with dyspnea and hypotension. She does have systolic CHF with ejection fraction of 20% with severe tricuspid regurgitation and moderate pulmonary hypertension. She is currently maintained on Lasix drip. Dobutamine drip was discontinued on October 14. Urine output overnight was about 250 mL and she is made another 300 mL this morning. Continues to be dyspneic. Appetite is good. No vomiting or diarrhea. Vital signs are stable. General: The patient appeared well nourished and normally developed. HEENT: Head exam is unremarkable. Neck is without jugular venous distension. LUNGS: Lungs are clear to auscultation and percussion. Breath sounds decreased. HEART: Rate and Rhythm are regular. First and second heart sounds normal. No murmurs, rubs or gallops. ABDOMEN: Abdominal exam reveals normal bowel sounds. Non-tender and non- distended. No evidence of peritonitis. EXTREMITITES: 1+ edema. Objective - Vital Signs Vital signs: Vital Signs Temp 97 F L 10/16/16 00:00 Pulse 85 10/16/16 04:00 Resp 18 10/16/16 04:00 BP 85/52 10/16/16 04:00 Pulse Ox 100 10/16/16 04:00 Intake & Output 10/15/16 10/16/16 10/16/16 18:59 06:59 18:59 Intake Total 1771.167 376.25 Output Total 700 200 300 Balance 1071.167 176.25 -300 Weight 84.5 kg 81.5 kg Intake: IV 500 Sodium Chloride 0.9% 1, 500 000 ml @ 20 mls/hr IV . Q24H [facility] Rx#:[id number] Intake, IV Titration 201.167 156.25 Amount Furosemide 250 mg In 201.167 156.25 Sodium Chloride 0.9% 225 ml @ 15 MG/HR 15 mls/hr IVP .[id number] [facility] Rx#: [id number] Oral 1070 220 Output: Urine 700 200 300 Uretheral (Hernandez) 200 Other: Voiding Method Indwelling Catheter Indwelling Catheter # Voids 1 # Bowel Movements 0 1 - Labs CBC & Chem 7: 10/16/16 06:18 10/16/16 06:18 Labs: Abnormal Lab Results - Last 24 Hours (Table) 10/16/16 10/16/16 Range/Units 06:18 06:18 RBC 2.57 L (3.80-5.40) m/uL Hgb 8.8 L (11.4-16.0) gm/dL Hct 27.9 L (34.0-46.0) % MCV 108.4 H (80.0-100.0) fL RDW 23.7 H (11.5-15.5) % Neutrophils # 8.0 H (1.3-7.7) k/uL Lymphocytes # 0.5 L (1.0-4.8) k/uL Sodium 130 L (137-145) mmol/L Chloride 93 L (98-107) mmol/L BUN 85 H* (7-17) mg/dL Creatinine 1.84 H (0.52-1.04) mg/dL Total Bilirubin 1.9 H (0.2-1.3) mg/dL AST 51 H (14-36) U/L Albumin 3.0 L (3.5-5.0) g/dL Assessment and Plan Plan: Assessment: #1. Nonoliguric acute kidney injury secondary to ATN secondary to cardiorenal syndrome. Creatinine worse at 1.8 today. It was 2.6 on admission. #2. Hyperkalemia secondary to acute kidney injury and potassium supplementation. Resolved. #3. Hyponatremia. Appears hypervolemic in nature. Improving. #4. Chronic hypotension related to underlying cardiac status. #5. Systolic CHF with ejection fraction of 20% with severe tricuspid regurgitation and moderate pulmonary hypertension. #6. Anemia. Iron deficiency present. Status post 3 doses of IV iron. Plan: Discontinue Lasix drip. Start IV Lasix 40 mg twice daily. Encourage oral intake, particularly protein. Avoid nephrotoxic agents and hypotensive episodes. Maintain low salt and 1.2 L fluid restricted diet. Repeat electrolytes in the morning.
[2016-10-16] MEDS: FUROSEMIDE 10 MG/ML 4 ML VIAL IV SCH ×2 (09:37→21:01)
--- NOTE | 2016-10-16 11:19 | P.PN ---
Subjective Acute on chronic renal failure, acute congestive heart failure exacerbation, anemia Patient is a 71-year-old female who presented to [facility] with severe shortness of breath and severe weakness, she had evidence of worsening of her kidney function, and evidence of acute congestive heart failure exacerbation she was admitted to ICU. Patient was started on IV Lasix drip she was also started on IV dopamine drip to improve kidney perfusion. 10/12/2016 patient is sitting at bedside chair. She reports that her shortness of breath is improving. She remains on a Lasix drip and dopamine. Chest x-ray shows worsening vascular congestion. Cardiology is following. Patient denies chest pain. Denies any nausea or vomiting. denies any difficulty urinating. 10/15/2016 patient's breathing is showing improvement. She still remained on any IV Lasix drip. Dopamine drip discontinued yesterday. Patient still having significant lower extremity edema slight improvement noted. Denies any chest pain or shortness breath. Denies any nausea or vomiting. Reports about 4 days since last bowel movement. she is passing gas. She denies any abdominal pain. denies any nausea or vomiting 10/16/2016 patient and planning more shortness of breath today. Lasix drip was discontinued yesterday. She is currently on IV Lasix 40 mg every 12 hours. Zaroxolyn held this morning her nephrology. Patient denies any chest pain. Denies any nausea or vomiting. patient received port small bowel movement after lactulose yesterday Objective - Vital Signs Vital signs: Vital Signs Temp 98.1 F 10/16/16 08:30 Pulse 80 10/16/16 08:30 Resp 18 10/16/16 08:30 BP 86/53 10/16/16 08:30 Pulse Ox 99 10/16/16 08:30 Intake & Output 10/15/16 10/16/16 10/16/16 18:59 06:59 18:59 Intake Total 1771.167 376.25 236 Output Total 700 200 300 Balance 1071.167 176.25 -64 Weight 84.5 kg 81.5 kg Intake: IV 500 Sodium Chloride 0.9% 1, 500 000 ml @ 20 mls/hr IV . Q24H [facility] Rx#:[id number] Intake, IV Titration 201.167 156.25 Amount Furosemide 250 mg In 201.167 156.25 Sodium Chloride 0.9% 225 ml @ 15 MG/HR 15 mls/hr IVP .[id number] [facility] Rx#: [id number] Oral 1070 220 236 Output: Urine 700 200 300 Uretheral (Hernandez) 200 Other: Voiding Method Indwelling Catheter Indwelling Catheter Indwelling Catheter # Voids 1 # Bowel Movements 0 1 - Exam Head normocephalic Neck supple Lungs diminished with crackles at the bases Heart regular rate and rhythm S1-S2, no rub or gallop Abdomen is soft nontender nondistended positive bowel sounds no hepatosplenomegaly Extremities 2+ pitting edema bilateral lower extremities Neuro alert and orientated to 3 - Labs CBC & Chem 7: 10/16/16 06:18 10/16/16 06:18 Labs: Abnormal Lab Results - Last 24 Hours (Table) 10/16/16 10/16/16 Range/Units 06:18 06:18 RBC 2.57 L (3.80-5.40) m/uL Hgb 8.8 L (11.4-16.0) gm/dL Hct 27.9 L (34.0-46.0) % MCV 108.4 H (80.0-100.0) fL RDW 23.7 H (11.5-15.5) % Neutrophils # 8.0 H (1.3-7.7) k/uL Lymphocytes # 0.5 L (1.0-4.8) k/uL Sodium 130 L (137-145) mmol/L Chloride 93 L (98-107) mmol/L BUN 85 H* (7-17) mg/dL Creatinine 1.84 H (0.52-1.04) mg/dL Total Bilirubin 1.9 H (0.2-1.3) mg/dL AST 51 H (14-36) U/L Albumin 3.0 L (3.5-5.0) g/dL Assessment and Plan Plan: #1 acute renal failure related to dehydration due to diuretic use and due to cardiorenal syndrome. Nephrology is following. creatinine at 1.84. Nephrology is following. #2 acute on chronic systolic CHF exacerbation with severe cardiomyopathy with ejection fraction 20-25% andsevere tricuspid regurgitation and moderate pulmonary hypertension. Lasix drip discontinued yesterday. Currently on Lasix 40 mg IV every 12 hours. Nephrology hold Zaroxolyn this morning #3 underlying history of pulmonary hypertension #4 underlying history of anemia #5 hyperkalemia on presentation #6 hypervolemic hyponatremia: Improving with Lasix. Sodium 130. Nephrology following. #7 underlying history of gout #8 chronic hypotension due to underlying cardiac status. EF of 20 to 25% #9 iron deficiency anemia. patient did require blood transfusion during this admission. As well as IV iron. Hemoglobin 8.8. Continue to monitor. #10 history of atrial fibrillation on Xarelto #11 chronic hypoxic respiratory failure, home O2 dependent #12 hypervolemic hyponatremia: Nephrology following
[2016-10-16] MEDS: HYDROcodone/APAP 10-325MG 1 EACH TAB PO PRN (12:00)
[2016-10-16] MEDS: POLYETHYLENE GLYCOL 3350 17 GM POWD.PACK PO SCH (12:07)
[2016-10-16] MEDS: FERROUS SULFATE 325 MG TAB PO SCH (15:52)
[2016-10-16] MEDS: FOLIC ACID 1 MG TAB PO SCH (15:52)
[2016-10-16] MEDS: RIVAROXABAN 15 MG TAB PO SCH (15:52)
--- NOTE | 2016-10-16 18:12 | PN ---
A 71-year-old female well known to me. Patient with severely impaired LV function. Patient with atherosclerotic heart disease, presented several years ago with cardiogenic shock requiring temporary pacemaker, angioplasty of the LAD and right coronary at the same time and subsequently she has been going down, gradually getting into more of congestive heart failure. The patient has an ICD in place and doing reasonably well on IV diuretics at the present time. Vital signs are stable. Sitting in a bedside chair, alert and oriented. Denies any chest pain or pressure or shortness of breath. Pulse rate of 85 beats per minute, blood pressure of 85/52, respirations of 18. HEAD: Normocephalic. HEENT unremarkable. Neck is supple. JVD is elevated to 10 cm above the clavicle. CARDIAC: S1 and S2. LUNGS: A few basal crackles. The patient has 1 to 2+ pedal edema. [employer]: Grossly within normal limits. Patient's prognosis is guarded in spite of therapy. Patient is on: 1. Metolazone 2.5 mg p.o. daily. 2. Protonix 40 mg p.o. b.i.d. 3. Edoxaban 15 mg p.o. daily. 4. Revatio 20 mg p.o. t.i.d. for pulmonary hypertension. 5. Lasix 40 mg p.o. q.12 hours. 6. Folic acid 1 mg. 7. Ferrous sulfate. The patient's prognosis is guarded in spite of therapy. Patient is making slow progress.
[2016-10-16] MEDS: SODIUM CHLORIDE 0.9% 1,000 ML IV SCH (23:30)
[2016-10-17 06:17] LABS: Anisocytosis Moderate; Basophils % (A) 1 %; CH 34.7; CHCM 31.8; Eosinophils # (A) 0.1 k/uL (0-0.7); Eosinophils % (A) 2 %; HCT 29.3 % (34.0-46.0); HGB 8.8 gm/dL (11.4-16.0); Hypochromasia Moderate; Luc # (Auto) 0.15; Luc % (Auto) 2; Lymphocytes # (A) 0.3 k/uL (1.0-4.8); Lymphocytes % (A) 4 %; MCH 33.1 pg (25.0-35.0); MCHC 29.9 g/dL (31.0-37.0); MCV 110.7 fL (80.0-100.0); Macrocytosis Marked; Mean Platelet Volume 8.3; Monocytes # (A) 0.3 k/uL (0-1.0); Monocytes % (A) 4 %; Neutrophils # (A) 6.5 k/uL (1.3-7.7); Neutrophils % (A) 87 %; RBC 2.65 m/uL (3.80-5.40); WBC 7.5 k/uL (3.8-10.6); WBC (Perox) 8.16
[2016-10-17 06:30] LABS: Potassium 4.6 mmol/L (3.5-5.1); Total Bilirubin 1.7 mg/dL (0.2-1.3); Total Protein 6.4 g/dL (6.3-8.2)
[2016-10-17] MEDS: LEVOTHYROXINE 50 MCG TAB PO SCH (06:30)
[2016-10-17 06:40] LABS: Manual Review Performed
--- NOTE | 2016-10-17 08:49 | P.PN ---
Subjective Patient is seen in follow-up for acute kidney injury. Patient presented with dyspnea and hypotension. She does have systolic CHF with ejection fraction of 20% with severe tricuspid regurgitation and moderate pulmonary hypertension. She is currently maintained on Lasix 40 mg IV twice daily. Dobutamine drip was discontinued on October 14. She is nonoliguric. Continues to be dyspneic but improving. Appetite is good. No vomiting or diarrhea. Vital signs are stable. General: The patient appeared well nourished and normally developed. HEENT: Head exam is unremarkable. Neck is without jugular venous distension. LUNGS: Lungs are clear to auscultation and percussion. Breath sounds decreased. HEART: Rate and Rhythm are regular. First and second heart sounds normal. No murmurs, rubs or gallops. ABDOMEN: Abdominal exam reveals normal bowel sounds. Non-tender and non- distended. No evidence of peritonitis. EXTREMITITES: 1+ edema. Objective - Vital Signs Vital signs: Vital Signs Temp 97.3 F L 10/17/16 04:00 Pulse 71 10/17/16 04:00 Resp 17 10/17/16 04:00 BP 97/54 10/17/16 04:00 Pulse Ox 99 10/17/16 04:00 Intake & Output 10/16/16 10/17/16 10/17/16 18:59 06:59 18:59 Intake Total 616 400 Output Total 900 625 Balance -284 -225 Weight 81.5 kg 81.1 kg Intake: IV 160 Sodium Chloride 0.9% 1, 160 000 ml @ 20 mls/hr IV . Q24H [facility] Rx#:[id number] Oral 616 240 Output: Urine 900 625 Other: Voiding Method Indwelling Catheter Indwelling Catheter - Labs CBC & Chem 7: 10/17/16 05:41 10/17/16 05:41 Labs: Abnormal Lab Results - Last 24 Hours (Table) 10/17/16 10/17/16 Range/Units 05:41 05:41 RBC 2.65 L (3.80-5.40) m/uL Hgb 8.8 L (11.4-16.0) gm/dL Hct 29.3 L (34.0-46.0) % MCV 110.7 H (80.0-100.0) fL MCHC 29.9 L (31.0-37.0) g/dL RDW 24.0 H (11.5-15.5) % Lymphocytes # 0.3 L (1.0-4.8) k/uL Sodium 130 L (137-145) mmol/L Chloride 92 L (98-107) mmol/L BUN 86 H* (7-17) mg/dL Creatinine 1.87 H (0.52-1.04) mg/dL Total Bilirubin 1.7 H (0.2-1.3) mg/dL Albumin 3.2 L (3.5-5.0) g/dL Assessment and Plan Plan: Assessment: #1. Nonoliguric acute kidney injury secondary to ATN secondary to cardiorenal syndrome. Creatinine stable at 1.87 today. It was 2.6 on admission. #2. Hyperkalemia secondary to acute kidney injury and potassium supplementation. Resolved. #3. Hyponatremia. Appears hypervolemic in nature. Stable. #4. Chronic hypotension related to underlying cardiac status. #5. Systolic CHF with ejection fraction of 20% with severe tricuspid regurgitation and moderate pulmonary hypertension. #6. Anemia. Iron deficiency present. Status post 3 doses of IV iron. Plan: Continue IV Lasix 40 mg twice daily. Encourage oral intake, particularly protein. Avoid nephrotoxic agents and hypotensive episodes. Maintain low salt and 1.2 L fluid restricted diet. Repeat electrolytes in the morning.
[2016-10-17] MEDS: PANTOPRAZOLE 40 MG TABLET PO SCH ×2 (09:14→18:31)
[2016-10-17] MEDS: DOCUSATE 100 MG CAP PO SCH ×2 (09:14→20:21)
[2016-10-17] MEDS: FUROSEMIDE 10 MG/ML 4 ML VIAL IV SCH ×2 (09:15→20:21)
[2016-10-17] MEDS: POLYETHYLENE GLYCOL 3350 17 GM POWD.PACK PO SCH (09:15)
[2016-10-17] MEDS: METOLAZONE 2.5 MG TAB PO SCH (09:15)
[2016-10-17] MEDS: MULTIVITAMINS, THERA 1 EACH TAB PO SCH (09:15)
[2016-10-17] MEDS: SILDENAFIL 20 MG TAB PO SCH ×3 (09:15→20:21)
--- NOTE | 2016-10-17 12:03 | P.PN ---
Subjective Patient is tired today. She said that she didn't get good sleep last night as her roommate was confused. Objective - Vital Signs Vital signs: Vital Signs Temp 97.0 F L 10/17/16 07:55 Pulse 71 10/17/16 07:55 Resp 20 10/17/16 07:55 BP 87/51 10/17/16 07:55 Pulse Ox 100 10/17/16 07:55 Intake & Output 10/16/16 10/17/16 10/17/16 18:59 06:59 18:59 Intake Total 616 400 Output Total 900 625 200 Balance -284 -225 -200 Weight 81.5 kg 81.1 kg Intake: IV 160 Sodium Chloride 0.9% 1, 160 000 ml @ 20 mls/hr IV . Q24H [facility] Rx#:[id number] Oral 616 240 Output: Urine 900 625 200 Other: Voiding Method Indwelling Catheter Indwelling Catheter Indwelling Catheter # Bowel Movements 0 - Exam General: The patient is awake and alert, in no distress Eye: there is normal conjunctiva bilaterally. Neck: The neck is supple, there is no JVD. Cardiovascular: Normal S1-S2, no S3-S4, no murmurs. Respiratory: Lungs clear to auscultation bilaterally Gastrointestinal: Abdomen is soft, nontender Musculoskeletal: There is no pedal edema. Neurological:. Speech is normal. Skin: Skin is warm and dry - Labs CBC & Chem 7: 10/17/16 05:41 10/17/16 05:41 Labs: Abnormal Lab Results - Last 24 Hours (Table) 10/17/16 10/17/16 Range/Units 05:41 05:41 RBC 2.65 L (3.80-5.40) m/uL Hgb 8.8 L (11.4-16.0) gm/dL Hct 29.3 L (34.0-46.0) % MCV 110.7 H (80.0-100.0) fL MCHC 29.9 L (31.0-37.0) g/dL RDW 24.0 H (11.5-15.5) % Lymphocytes # 0.3 L (1.0-4.8) k/uL Sodium 130 L (137-145) mmol/L Chloride 92 L (98-107) mmol/L BUN 86 H* (7-17) mg/dL Creatinine 1.87 H (0.52-1.04) mg/dL Total Bilirubin 1.7 H (0.2-1.3) mg/dL Albumin 3.2 L (3.5-5.0) g/dL Assessment and Plan Plan: #1 acute renal failure related to dehydration due to diuretic use and due to cardiorenal syndrome. Nephrology is following #2 acute on chronic systolic CHF exacerbation with severe cardiomyopathy with ejection fraction 20-25% andsevere tricuspid regurgitation and moderate pulmonary hypertension. Diuretic regimen managed by nephrology #3 underlying history of pulmonary hypertension #4 underlying history of anemia #5 hyperkalemia on presentation #7 underlying history of gout #8 chronic hypotension due to underlying cardiac status. EF of 20 to 25% #9 iron deficiency anemia. patient did require blood transfusion during this admission. As well as IV iron. Hemoglobin 8.8. Continue to monitor. #10 history of atrial fibrillation on Xarelto #11 chronic hypoxic respiratory failure, home O2 dependent
--- NOTE | 2016-10-17 12:45 | P.PN ---
Subjective Principal diagnosis: CHF This is a pleasant 71-year-old female patient who sees Dr. Whitten as an outpatient with a past medical history significant for coronary artery disease, severe ischemic cardiomyopathy and status post ICD, chronic atrial fibrillation, as well as multiple comorbid conditions was admitted to the hospital with acute on chronic respiratory failure secondary to CHF exacerbation. Clinically the patient continues to be short of breath. On physical examination she still have bilateral crackles. She continues to be on Lasix IV. Objective - Vital Signs Vital signs: Vital Signs Temp 97.0 F L 10/17/16 07:55 Pulse 71 10/17/16 07:55 Resp 20 10/17/16 07:55 BP 87/51 10/17/16 07:55 Pulse Ox 100 10/17/16 07:55 Intake & Output 10/16/16 10/17/16 10/17/16 18:59 06:59 18:59 Intake Total 616 400 Output Total 900 625 200 Balance -284 -225 -200 Weight 81.5 kg 81.1 kg Intake: IV 160 Sodium Chloride 0.9% 1, 160 000 ml @ 20 mls/hr IV . [facility]H [facility] Rx#:[id number] Oral 616 240 Output: Urine 900 625 200 Other: Voiding Method Indwelling Catheter Indwelling Catheter Indwelling Catheter # Bowel Movements 0 - Constitutional General appearance: Present: mild distress - Respiratory Respiratory: bilateral: rales - Cardiovascular Heart sounds: normal: S1, S2 - Labs CBC & Chem 7: 10/17/16 05:41 10/17/16 05:41 Labs: Abnormal Lab Results - Last 24 Hours (Table) 10/17/16 10/17/16 Range/Units 05:41 05:41 RBC 2.65 L (3.80-5.40) m/uL Hgb 8.8 L (11.4-16.0) gm/dL Hct 29.3 L (34.0-46.0) % MCV 110.7 H (80.0-100.0) fL MCHC 29.9 L (31.0-37.0) g/dL RDW 24.0 H (11.5-15.5) % Lymphocytes # 0.3 L (1.0-4.8) k/uL Sodium 130 L (137-145) mmol/L Chloride 92 L (98-107) mmol/L BUN 86 H* (7-17) mg/dL Creatinine 1.87 H (0.52-1.04) mg/dL Total Bilirubin 1.7 H (0.2-1.3) mg/dL Albumin 3.2 L (3.5-5.0) g/dL Assessment and Plan Plan: Assessment #1 acute on chronic respiratory failure #2 congestive heart failure exacerbation secondary to systolic dysfunction #3 known severe underlying CAD #4 known severe ischemic cardiomyopathy and status post AICD #5 chronic atrial fibrillation Plan #1 continue the patient on Lasix IV #2 nephrology service on the case as well as #3 monitor the blood pressure and the patient is not on any medication, lower her blood pressure #4 follow-up with the patient
[2016-10-17] MEDS: FERROUS SULFATE 325 MG TAB PO SCH (18:30)
[2016-10-17] MEDS: RIVAROXABAN 15 MG TAB PO SCH (18:31)
[2016-10-17] MEDS: SODIUM CHLORIDE 0.9% 1,000 ML IV SCH (18:31)
[2016-10-17] MEDS: FOLIC ACID 1 MG TAB PO SCH (18:31)
[2016-10-18 06:40] LABS: Calcium 9.1 mg/dL (8.4-10.2); Potassium 4.6 mmol/L (3.5-5.1); Total Bilirubin 1.4 mg/dL (0.2-1.3); Total Protein 6.3 g/dL (6.3-8.2)
[2016-10-18] MEDS: PANTOPRAZOLE 40 MG TABLET PO SCH ×2 (06:42→15:56)
[2016-10-18] MEDS: LEVOTHYROXINE 50 MCG TAB PO SCH (06:42)
[2016-10-18 06:48] LABS: Anisocytosis Moderate; CH 34.5; CHCM 31.7; HCT 28.3 % (34.0-46.0); HDW 3.31; HGB 8.5 gm/dL (11.4-16.0); Hypochromasia Moderate; MCH 33.3 pg (25.0-35.0); MCHC 30.2 g/dL (31.0-37.0); MCV 110.5 fL (80.0-100.0); Macrocytosis Marked; Mean Platelet Volume 8.4; RBC 2.56 m/uL (3.80-5.40); RDW 23.9 % (11.5-15.5); WBC 6.9 k/uL (3.8-10.6); WBC (Perox) 7.42
[2016-10-18 07:49] LABS: Add Differential Manual Differential
[2016-10-18 08:01] LABS: Nucleated Red Blood Cells 0 /100 WBC (0-0); Total Cells Counted 200
[2016-10-18 08:10] LABS: Target Cells Present
--- NOTE | 2016-10-18 08:18 | P.PN ---
Subjective Patient is seen in follow-up for acute kidney injury. Patient presented with dyspnea and hypotension. She does have systolic CHF with ejection fraction of 20% with severe tricuspid regurgitation and moderate pulmonary hypertension. She is currently maintained on Lasix 40 mg IV twice daily. Dobutamine drip was discontinued on October 14. She is nonoliguric. Continues to be dyspneic but improving. Appetite is good. No vomiting or diarrhea. Renal function improving. Vital signs are stable. General: The patient appeared well nourished and normally developed. HEENT: Head exam is unremarkable. Neck is without jugular venous distension. LUNGS: Lungs are clear to auscultation and percussion. Breath sounds decreased. HEART: Rate and Rhythm are regular. First and second heart sounds normal. No murmurs, rubs or gallops. ABDOMEN: Abdominal exam reveals normal bowel sounds. Non-tender and non- distended. No evidence of peritonitis. EXTREMITITES: 1+ edema. Objective - Vital Signs Vital signs: Vital Signs Temp 98.1 F 10/18/16 07:40 Pulse 70 10/18/16 07:40 Resp 17 10/18/16 07:40 BP 86/53 10/18/16 07:40 Pulse Ox 100 10/18/16 07:40 Intake & Output 10/17/16 10/18/16 10/18/16 18:59 06:59 18:59 Intake Total 1647 400 240 Output Total 200 320 Balance 1447 80 240 Intake: IV 160 Sodium Chloride 0.9% 1, 160 000 ml @ 20 mls/hr IV . Q24H [facility] Rx#:[id number] Oral 1647 240 240 Output: Urine 200 320 Other: Voiding Method Indwelling Catheter Indwelling Catheter Indwelling Catheter # Voids 0 # Bowel Movements 0 - Labs CBC & Chem 7: 10/18/16 05:54 10/18/16 05:54 Labs: Abnormal Lab Results - Last 24 Hours (Table) 10/18/16 10/18/16 Range/Units 05:54 05:54 RBC 2.56 L (3.80-5.40) m/uL Hgb 8.5 L (11.4-16.0) gm/dL Hct 28.3 L (34.0-46.0) % MCV 110.5 H (80.0-100.0) fL MCHC 30.2 L (31.0-37.0) g/dL RDW 23.9 H (11.5-15.5) % Lymphocytes # (Manual) 0.4 L (1.0-4.8) k/uL Sodium 133 L (137-145) mmol/L Chloride 94 L (98-107) mmol/L BUN 81 H* (7-17) mg/dL Creatinine 1.62 H (0.52-1.04) mg/dL Total Bilirubin 1.4 H (0.2-1.3) mg/dL Albumin 3.0 L (3.5-5.0) g/dL Assessment and Plan Plan: Assessment: #1. Nonoliguric acute kidney injury secondary to ATN secondary to cardiorenal syndrome. Creatinine improved to 1.62 today. It was 2.6 on admission. #2. Hyperkalemia secondary to acute kidney injury and potassium supplementation. Resolved. #3. Hyponatremia. Appears hypervolemic in nature. Improved. #4. Chronic hypotension related to underlying cardiac status. #5. Systolic CHF with ejection fraction of 20% with severe tricuspid regurgitation and moderate pulmonary hypertension. #6. Anemia. Iron deficiency present. Status post 3 doses of IV iron. Plan: Continue IV Lasix 40 mg twice daily. Encourage oral intake, particularly protein. Avoid nephrotoxic agents and hypotensive episodes. Maintain low salt and 1.2 L fluid restricted diet. Repeat electrolytes in the morning.
[2016-10-18] MEDS: FUROSEMIDE 10 MG/ML 4 ML VIAL IV SCH (08:31)
[2016-10-18] MEDS: DOCUSATE 100 MG CAP PO SCH ×2 (08:31→20:19)
[2016-10-18] MEDS: METOLAZONE 2.5 MG TAB PO SCH (08:32)
[2016-10-18] MEDS: SILDENAFIL 20 MG TAB PO SCH ×3 (08:32→20:19)
[2016-10-18] MEDS: MULTIVITAMINS, THERA 1 EACH TAB PO SCH (08:32)
[2016-10-18] MEDS: POLYETHYLENE GLYCOL 3350 17 GM POWD.PACK PO SCH (08:37)
--- NOTE | 2016-10-18 12:56 | P.PN ---
Subjective Patient is doing fairly well today. No events overnight. Objective - Vital Signs Vital signs: Vital Signs Temp 97.4 F L 10/18/16 11:30 Pulse 70 10/18/16 11:30 Resp 16 10/18/16 11:30 BP 87/49 10/18/16 11:30 Pulse Ox 99 10/18/16 11:30 Intake & Output 10/17/16 10/18/16 10/18/16 18:59 06:59 18:59 Intake Total 8792 532 5254 Output Total 200 320 400 Balance 1447 80 918 Intake: IV 160 Sodium Chloride 0.9% 1, 160 000 ml @ 20 mls/hr IV . Q24H [facility] Rx#:[id number] Oral 6283 308 2023 Output: Urine 200 320 400 Other: Voiding Method Indwelling Catheter Indwelling Catheter Indwelling Catheter # Voids 0 # Bowel Movements 0 1 - Exam General: The patient is awake and alert, in no distress Eye: there is normal conjunctiva bilaterally. Neck: The neck is supple, there is no JVD. Cardiovascular: Normal S1-S2, no S3-S4, no murmurs. Respiratory: Lungs clear to auscultation bilaterally Gastrointestinal: Abdomen is soft, nontender Musculoskeletal: There is no pedal edema. Neurological:. Speech is normal. Skin: Skin is warm and dry - Labs CBC & Chem 7: 10/18/16 05:54 10/18/16 05:54 Labs: Abnormal Lab Results - Last 24 Hours (Table) 10/18/16 10/18/16 Range/Units 05:54 05:54 RBC 2.56 L (3.80-5.40) m/uL Hgb 8.5 L (11.4-16.0) gm/dL Hct 28.3 L (34.0-46.0) % MCV 110.5 H (80.0-100.0) fL MCHC 30.2 L (31.0-37.0) g/dL RDW 23.9 H (11.5-15.5) % Lymphocytes # (Manual) 0.4 L (1.0-4.8) k/uL Sodium 133 L (137-145) mmol/L Chloride 94 L (98-107) mmol/L BUN 81 H* (7-17) mg/dL Creatinine 1.62 H (0.52-1.04) mg/dL Total Bilirubin 1.4 H (0.2-1.3) mg/dL Albumin 3.0 L (3.5-5.0) g/dL Assessment and Plan Plan: #1 acute renal failure related to dehydration due to diuretic use and due to cardiorenal syndrome. Nephrology is following #2 acute on chronic systolic CHF exacerbation with severe cardiomyopathy with ejection fraction 20-25% andsevere tricuspid regurgitation and moderate pulmonary hypertension. Diuretic regimen managed by nephrology #3 underlying history of pulmonary hypertension #4 underlying history of anemia #5 hyperkalemia on presentation #7 underlying history of gout #8 chronic hypotension due to underlying cardiac status. EF of 20 to 25% #9 iron deficiency anemia. patient did require blood transfusion during this admission. As well as IV iron. Hemoglobin 8.8. Continue to monitor. #10 history of atrial fibrillation on Xarelto #11 chronic hypoxic respiratory failure, home O2 dependent Patient refused Hernandez catheter to be discontinued. She would be agreeable to discontinue Hernandez catheter and her Lasix to switch to oral.
--- NOTE | 2016-10-18 13:08 | P.PN ---
Subjective Principal diagnosis: CHF This is a pleasant 71-year-old female patient who sees Dr. Whitten as an outpatient with a past medical history significant for coronary artery disease, severe ischemic cardiomyopathy and status post ICD, chronic atrial fibrillation, as well as multiple comorbid conditions was admitted to the hospital with acute on chronic respiratory failure secondary to CHF exacerbation. Clinically the patient continues to be short of breath. On physical examination she still have bilateral crackles. She continues to be on Lasix IV. I'll follow-up with her today, she is not feeling well overall and she is feeling weak and tired. The blood pressure has been marginally low. I am going to decrease the dose of Lasix IV to 40 mg daily and follow-up with the patient. Objective - Vital Signs Vital signs: Vital Signs Temp 97.4 F L 10/18/16 11:30 Pulse 70 10/18/16 11:30 Resp 16 10/18/16 11:30 BP 87/49 10/18/16 11:30 Pulse Ox 99 10/18/16 11:30 Intake & Output 10/17/16 10/18/16 10/18/16 18:59 06:59 18:59 Intake Total 4735 351 2979 Output Total 200 320 400 Balance 1447 80 918 Intake: IV 160 Sodium Chloride 0.9% 1, 160 000 ml @ 20 mls/hr IV . Q24H [facility] Rx#:[id number] Oral 7323 738 7344 Output: Urine 200 320 400 Other: Voiding Method Indwelling Catheter Indwelling Catheter Indwelling Catheter # Voids 0 # Bowel Movements 0 1 - Constitutional General appearance: Present: no acute distress - Respiratory Respiratory: bilateral: diminished - Cardiovascular Rhythm: irregularly irregular - Labs CBC & Chem 7: 10/18/16 05:54 10/18/16 05:54 Labs: Abnormal Lab Results - Last 24 Hours (Table) 10/18/16 10/18/16 Range/Units 05:54 05:54 RBC 2.56 L (3.80-5.40) m/uL Hgb 8.5 L (11.4-16.0) gm/dL Hct 28.3 L (34.0-46.0) % MCV 110.5 H (80.0-100.0) fL MCHC 30.2 L (31.0-37.0) g/dL RDW 23.9 H (11.5-15.5) % Lymphocytes # (Manual) 0.4 L (1.0-4.8) k/uL Sodium 133 L (137-145) mmol/L Chloride 94 L (98-107) mmol/L BUN 81 H* (7-17) mg/dL Creatinine 1.62 H (0.52-1.04) mg/dL Total Bilirubin 1.4 H (0.2-1.3) mg/dL Albumin 3.0 L (3.5-5.0) g/dL Assessment and Plan Plan: Assessment #1 acute on chronic respiratory failure #2 congestive heart failure exacerbation secondary to systolic dysfunction #3 known severe underlying CAD #4 known severe ischemic cardiomyopathy and status post AICD #5 chronic atrial fibrillation Plan #1 continue the patient on Lasix IV with decreasing the dose #2 nephrology service on the case as well as #3 monitor the blood pressure #4 follow-up with the patient
[2016-10-18] MEDS: FOLIC ACID 1 MG TAB PO SCH (15:56)
[2016-10-18] MEDS: FERROUS SULFATE 325 MG TAB PO SCH (15:56)
[2016-10-18] MEDS: RIVAROXABAN 15 MG TAB PO SCH (15:56)
[2016-10-18] MEDS: SODIUM CHLORIDE 0.9% 1,000 ML IV SCH (19:02)
[2016-10-19] MEDS: HYDROcodone/APAP 10-325MG 1 EACH TAB PO PRN ×2 (01:32→17:57)
[2016-10-19] MEDS: PANTOPRAZOLE 40 MG TABLET PO SCH ×2 (06:17→17:58)
[2016-10-19] MEDS: LEVOTHYROXINE 50 MCG TAB PO SCH (06:18)
[2016-10-19 06:36] LABS: Anisocytosis Moderate; Basophils % (A) 1 %; CH 33.5; CHCM 30.7; Eosinophils # (A) 0.1 k/uL (0-0.7); Eosinophils % (A) 1 %; HCT 29.7 % (34.0-46.0); HDW 3.18; Hypochromasia Marked; Luc # (Auto) 0.13; Luc % (Auto) 2; Lymphocytes # (A) 0.4 k/uL (1.0-4.8); Lymphocytes % (A) 5 %; MCH 33.4 pg (25.0-35.0); MCHC 30.4 g/dL (31.0-37.0); Macrocytosis Marked; Mean Platelet Volume 7.3; Monocytes # (A) 0.2 k/uL (0-1.0); Monocytes % (A) 3 %; Neutrophils # (A) 6.5 k/uL (1.3-7.7); Neutrophils % (A) 89 %; RDW 23.1 % (11.5-15.5); WBC 7.4 k/uL (3.8-10.6); WBC (Perox) 7.98
[2016-10-19 06:47] LABS: Calcium 9.3 mg/dL (8.4-10.2); Potassium 4.7 mmol/L (3.5-5.1); Total Bilirubin 1.2 mg/dL (0.2-1.3); Total Protein 6.3 g/dL (6.3-8.2)
[2016-10-19 06:58] LABS: Manual Review Performed
[2016-10-19 06:59] LABS: Polychromasia Present
[2016-10-19] MEDS ORDERED: FUROSEMIDE 10 MG/ML 4 ML VIAL IV SCH (09:00)
[2016-10-19] MEDS: SILDENAFIL 20 MG TAB PO SCH ×3 (09:24→22:02)
[2016-10-19] MEDS: DOCUSATE 100 MG CAP PO SCH ×2 (09:24→22:02)
[2016-10-19] MEDS: POLYETHYLENE GLYCOL 3350 17 GM POWD.PACK PO SCH (09:24)
--- NOTE | 2016-10-19 09:24 | P.PN ---
Subjective Patient is seen in follow-up for acute kidney injury. Patient presented with dyspnea and hypotension. She does have systolic CHF with ejection fraction of 20% with severe tricuspid regurgitation and moderate pulmonary hypertension. She is currently maintained on Lasix 40 mg IV daily. Dobutamine drip was discontinued on October 14. She is nonoliguric. Continues to be dyspneic but improving. Appetite is good. No vomiting or diarrhea. Renal function improving. Vital signs are stable. General: The patient appeared well nourished and normally developed. HEENT: Head exam is unremarkable. Neck is without jugular venous distension. LUNGS: Lungs are clear to auscultation and percussion. Breath sounds decreased. HEART: Rate and Rhythm are regular. First and second heart sounds normal. No murmurs, rubs or gallops. ABDOMEN: Abdominal exam reveals normal bowel sounds. Non-tender and non- distended. No evidence of peritonitis. EXTREMITITES: 1+ edema. Objective - Vital Signs Vital signs: Vital Signs Temp 97.7 F 10/19/16 04:00 Pulse 72 10/19/16 04:00 Resp 16 10/19/16 04:00 BP 108/57 10/19/16 04:00 Pulse Ox 100 10/19/16 04:00 Intake & Output 10/18/16 10/19/16 10/19/16 18:59 06:59 18:59 Intake Total 1798 770 Output Total 950 950 Balance 848 -180 Weight 86 kg Intake: Intake, IV Titration 160 Amount Sodium Chloride 0.9% 1, 160 000 ml @ 20 mls/hr IV . Q24H [facility] Rx#:[id number] Oral 1798 610 Output: Urine 950 950 Other: Voiding Method Indwelling Catheter Indwelling Catheter # Voids 1 # Bowel Movements 1 - Labs CBC & Chem 7: 10/19/16 05:51 10/19/16 05:51 Labs: Abnormal Lab Results - Last 24 Hours (Table) 10/19/16 10/19/16 Range/Units 05:51 05:51 RBC 2.70 L (3.80-5.40) m/uL Hgb 9.0 L (11.4-16.0) gm/dL Hct 29.7 L (34.0-46.0) % MCV 110.0 H (80.0-100.0) fL MCHC 30.4 L (31.0-37.0) g/dL RDW 23.1 H (11.5-15.5) % Lymphocytes # 0.4 L (1.0-4.8) k/uL Sodium 132 L (137-145) mmol/L Chloride 95 L (98-107) mmol/L BUN 83 H* (7-17) mg/dL Creatinine 1.40 H (0.52-1.04) mg/dL Albumin 3.1 L (3.5-5.0) g/dL Assessment and Plan Plan: Assessment: #1. Nonoliguric acute kidney injury secondary to ATN secondary to cardiorenal syndrome. Creatinine improved to 1.4 today. It was 2.6 on admission. #2. Hyperkalemia secondary to acute kidney injury and potassium supplementation. Resolved. #3. Hyponatremia. Appears hypervolemic in nature. Stable. #4. Chronic hypotension related to underlying cardiac status. #5. Systolic CHF with ejection fraction of 20% with severe tricuspid regurgitation and moderate pulmonary hypertension. #6. Anemia. Iron deficiency present. Status post 3 doses of IV iron. Plan: Continue IV Lasix 40 mg daily. Encourage oral intake, particularly protein. Avoid nephrotoxic agents and hypotensive episodes. Maintain low salt and 1.2 L fluid restricted diet. Repeat electrolytes in the morning. May need to increase diuretics.
--- NOTE | 2016-10-19 11:20 | P.PN ---
Subjective Acute on chronic renal failure, acute congestive heart failure exacerbation, anemia Patient is a 71-year-old female who presented to [facility] with severe shortness of breath and severe weakness, she had evidence of worsening of her kidney function, and evidence of acute congestive heart failure exacerbation she was admitted to ICU. Patient was started on IV Lasix drip she was also started on IV dopamine drip to improve kidney perfusion. 10/12/2016 patient is sitting at bedside chair. She reports that her shortness of breath is improving. She remains on a Lasix drip and dopamine. Chest x-ray shows worsening vascular congestion. Cardiology is following. Patient denies chest pain. Denies any nausea or vomiting. denies any difficulty urinating. 10/15/2016 patient's breathing is showing improvement. She still remained on any IV Lasix drip. Dopamine drip discontinued yesterday. Patient still having significant lower extremity edema slight improvement noted. Denies any chest pain or shortness breath. Denies any nausea or vomiting. Reports about 4 days since last bowel movement. she is passing gas. She denies any abdominal pain. denies any nausea or vomiting 10/16/2016 patient and planning more shortness of breath today. Lasix drip was discontinued yesterday. She is currently on IV Lasix 40 mg every 12 hours. Zaroxolyn held this morning her nephrology. Patient denies any chest pain. Denies any nausea or vomiting. patient received port small bowel movement after lactulose yesterday 10/19/2016 patient still having shortness of breath and lower extremity edema. During that she is not feeling very well. IV Lasix was decreased to once a day yesterday. Case discussed with nephrology. They are recommending Lasix to be increased back to twice a day. Patient denies any chest pain. Denies any nausea or vomiting she is reporting bowel movements. Denies any difficulty urinating. Patient difficult IV start. IV 10 days old. She'll be going for PICC line placement due to poor IV access Objective - Vital Signs Vital signs: Vital Signs Temp 98.1 F 10/19/16 09:31 Pulse 72 10/19/16 09:31 Resp 18 10/19/16 09:31 BP 96/54 10/19/16 09:31 Pulse Ox 100 10/19/16 09:31 Intake & Output 0310/19/16 10/19/16 18:59 06:59 18:59 Intake Total 1798 770 240 Output Total 950 950 Balance 848 -180 240 Weight 86 kg Intake: Intake, IV Titration 160 Amount Sodium Chloride 0.9% 1, 160 000 ml @ 20 mls/hr IV . Q24H [facility] Rx#:[id number] Oral 1798 610 240 Output: Urine 950 950 Other: Voiding Method Indwelling Catheter Indwelling Catheter Indwelling Catheter # Voids 1 # Bowel Movements 1 - Exam Head normocephalic Neck supple Lungs diminished with crackles at the bases Heart irregular Abdomen is soft nontender nondistended positive bowel sounds no hepatosplenomegaly Extremities 2+ pitting edema bilateral lower extremities Neuro alert and orientated to 3 - Labs CBC & Chem 7: 10/19/16 05:51 10/19/16 05:51 Labs: Abnormal Lab Results - Last 24 Hours (Table) 10/19/16 10/19/16 Range/Units 05:51 05:51 RBC 2.70 L (3.80-5.40) m/uL Hgb 9.0 L (11.4-16.0) gm/dL Hct 29.7 L (34.0-46.0) % MCV 110.0 H (80.0-100.0) fL MCHC 30.4 L (31.0-37.0) g/dL RDW 23.1 H (11.5-15.5) % Lymphocytes # 0.4 L (1.0-4.8) k/uL Sodium 132 L (137-145) mmol/L Chloride 95 L (98-107) mmol/L BUN 83 H* (7-17) mg/dL Creatinine 1.40 H (0.52-1.04) mg/dL Albumin 3.1 L (3.5-5.0) g/dL Assessment and Plan Plan: #1 acute renal failure related to dehydration due to diuretic use and due to cardiorenal syndrome. Nephrology is following. creatinine at 1.40. Nephrology is following. #2 acute on chronic systolic CHF exacerbation with severe cardiomyopathy with ejection fraction 20-25% and severe tricuspid regurgitation and moderate pulmonary hypertension. Case discussed with nephrology. Patient still having shortness of breath and significant edema. Weight is 86 kg. We will increase Lasix to 40 mg IV twice a day #3 underlying history of pulmonary hypertension #4 underlying history of anemia #5 hyperkalemia on presentation #6 hypervolemic hyponatremia: Improving with Lasix. Sodium 132. Nephrology following. #7 underlying history of gout #8 chronic hypotension due to underlying cardiac status. EF of 20 to 25% #9 iron deficiency anemia. patient did require blood transfusion during this admission. Patient will receive 3 doses of IV iron daily #10 history of atrial fibrillation on Xarelto #11 chronic hypoxic respiratory failure, home O2 dependent #12 medical debility: Continue physical therapy
[2016-10-19] MEDS: MULTIVITAMINS, THERA 1 EACH TAB PO SCH (12:04)
--- NOTE | 2016-10-19 12:07 | PN ---
DATE OF SERVICE: 10/19/2016 This is a 71-year-old lady with multiple medical problems including coronary artery disease, ischemic cardiomyopathy, status post AICD, chronic atrial fibrillation, multiple comorbidities, who is admitted to hospital with acute exacerbation of chronic systolic heart failure. She also has chronic renal failure, chronic respiratory failure, and chronic atrial fibrillation. She is currently on IV Lasix. Nephrology is also on the case. On exam, afebrile. Heart rate is 69, blood pressure 96/54, respiratory rate is 18. Chest exam reveals good air entry bilaterally. There are no crackles or rhonchi. Heart exam reveals first and second heart sounds. Irregular rhythm with a systolic murmur at the left lower sternal border. Abdomen soft. Exam of the extremities did not reveal any edema. Peripheral pulses are felt. Labs show that the hemoglobin is 9, platelet count is 236, potassium is 4.7. Creatinine is 1.4 with a BUN of 83. ASSESSMENT: 1. Acute exacerbation of chronic systolic heart failure. 2. Chronic atrial fibrillation. 3. Chronic obstructive pulmonary disease. 4. Pulmonary hypertension. 5. Renal failure. PLAN: Will continue the patient on IV Lasix for now.
[2016-10-19] MEDS: SODIUM FERRIC GLUCONAT-SUCROSE 125 MG in SODIUM CHLORIDE 0.9% 100 ML IVPB SCH (12:23)
[2016-10-19] MEDS: FOLIC ACID 1 MG TAB PO SCH (17:58)
[2016-10-19] MEDS: FERROUS SULFATE 325 MG TAB PO SCH (17:58)
[2016-10-19] MEDS: RIVAROXABAN 15 MG TAB PO SCH (17:58)
[2016-10-19] MEDS: FUROSEMIDE 10 MG/ML 4 ML VIAL IV SCH (22:01)
[2016-10-19] MEDS: ALPRAZolam 0.25 MG TAB PO PRN (22:01)
[2016-10-19] MEDS: SODIUM CHLORIDE 0.9% 1,000 ML IV SCH (22:02)
[2016-10-20] MEDS: HYDROcodone/APAP 10-325MG 1 EACH TAB PO PRN ×2 (06:02→13:42)
[2016-10-20] MEDS: LEVOTHYROXINE 50 MCG TAB PO SCH (06:19)
[2016-10-20 06:26] LABS: Anisocytosis Moderate; Basophils # (A) 0.1 k/uL (0-0.2); Basophils % (A) 1 %; CH 33.8; CHCM 31.3; Eosinophils # (A) 0.1 k/uL (0-0.7); Eosinophils % (A) 1 %; HCT 30.5 % (34.0-46.0); HDW 3.34; HGB 9.2 gm/dL (11.4-16.0); Hypochromasia Moderate; Luc # (Auto) 0.18; Luc % (Auto) 3; Lymphocytes # (A) 0.4 k/uL (1.0-4.8); Lymphocytes % (A) 6 %; MCHC 30.2 g/dL (31.0-37.0); MCV 109.2 fL (80.0-100.0); Macrocytosis Marked; Mean Platelet Volume 8.1; Monocytes # (A) 0.4 k/uL (0-1.0); Monocytes % (A) 7 %; Neutrophils # (A) 5.2 k/uL (1.3-7.7); Neutrophils % (A) 82 %; RBC 2.79 m/uL (3.80-5.40); RDW 23.1 % (11.5-15.5); WBC 6.4 k/uL (3.8-10.6); WBC (Perox) 6.81
[2016-10-20 06:49] LABS: Calcium 9.2 mg/dL (8.4-10.2); Potassium 5.1 mmol/L (3.5-5.1)
[2016-10-20 07:05] LABS: Manual Review Performed
[2016-10-20 07:07] LABS: Ovalocytes Present
[2016-10-20] MEDS: SILDENAFIL 20 MG TAB PO SCH ×3 (08:17→21:42)
[2016-10-20] MEDS: PANTOPRAZOLE 40 MG TABLET PO SCH ×2 (08:17→15:38)
[2016-10-20] MEDS: DOCUSATE 100 MG CAP PO SCH ×2 (08:17→21:42)
[2016-10-20] MEDS: POLYETHYLENE GLYCOL 3350 17 GM POWD.PACK PO SCH (08:17)
[2016-10-20] MEDS: FUROSEMIDE 10 MG/ML 4 ML VIAL IV SCH ×2 (08:17→21:42)
[2016-10-20] MEDS: SODIUM FERRIC GLUCONAT-SUCROSE 125 MG in SODIUM CHLORIDE 0.9% 100 ML IVPB SCH (08:21)
--- NOTE | 2016-10-20 09:24 | P.PN ---
Subjective Patient is seen in follow-up for acute kidney injury. Patient presented with dyspnea and hypotension. She does have systolic CHF with ejection fraction of 20% with severe tricuspid regurgitation and moderate pulmonary hypertension. She is currently maintained on Lasix 40 mg IV twice daily. Dobutamine drip was discontinued on October 14. She is nonoliguric. Continues to be dyspneic but improving. Appetite is good. No vomiting or diarrhea. Renal function improving. Feels more tired today. Vital signs are stable. General: The patient appeared well nourished and normally developed. HEENT: Head exam is unremarkable. Neck is without jugular venous distension. LUNGS: Lungs are clear to auscultation and percussion. Breath sounds decreased. HEART: Rate and Rhythm are regular. First and second heart sounds normal. No murmurs, rubs or gallops. ABDOMEN: Abdominal exam reveals normal bowel sounds. Non-tender and non- distended. No evidence of peritonitis. EXTREMITITES: 1+ edema. Objective - Vital Signs Vital signs: Vital Signs Temp 97.8 F 10/20/16 04:00 Pulse 72 10/20/16 04:00 Resp 18 10/20/16 04:00 BP 103/52 10/20/16 04:00 Pulse Ox 100 10/20/16 04:00 Intake & Output 10/19/16 10/20/16 10/20/16 18:59 06:59 18:59 Intake Total 360 505 Output Total 600 750 Balance -240 -245 Weight 86.5 kg Intake: IV 55 Sodium Chloride 0.9% 1, 55 000 ml @ 20 mls/hr IV . Q24H [facility] Rx#:[id number] Oral 360 450 Output: Urine 600 750 Other: Voiding Method Indwelling Catheter Indwelling Catheter # Voids 1 - Labs CBC & Chem 7: 10/20/16 06:10 10/20/16 06:10 Labs: Abnormal Lab Results - Last 24 Hours (Table) 10/20/16 10/20/16 Range/Units 06:10 06:10 RBC 2.79 L (3.80-5.40) m/uL Hgb 9.2 L (11.4-16.0) gm/dL Hct 30.5 L (34.0-46.0) % MCV 109.2 H (80.0-100.0) fL MCHC 30.2 L (31.0-37.0) g/dL RDW 23.1 H (11.5-15.5) % Lymphocytes # 0.4 L (1.0-4.8) k/uL Sodium 135 L (137-145) mmol/L Chloride 94 L (98-107) mmol/L Carbon Dioxide 31 H (22-30) mmol/L BUN 78 H (7-17) mg/dL Creatinine 1.29 H (0.52-1.04) mg/dL Assessment and Plan Plan: Assessment: #1. Nonoliguric acute kidney injury secondary to ATN secondary to cardiorenal syndrome. Creatinine improved to 1.29 today. It was 2.6 on admission. #2. Hyperkalemia secondary to acute kidney injury and potassium supplementation. Resolved. #3. Hyponatremia. Appears hypervolemic in nature. Improved. #4. Chronic hypotension related to underlying cardiac status. #5. Systolic CHF with ejection fraction of 20% with severe tricuspid regurgitation and moderate pulmonary hypertension. #6. Anemia. Iron deficiency present. Status post 3 doses of IV iron. Plan: Continue IV Lasix 40 mg twice daily. Encourage oral intake, particularly protein. Avoid nephrotoxic agents and hypotensive episodes. Maintain low salt and 1.2 L fluid restricted diet. Repeat electrolytes in the morning.
[2016-10-20] MEDS: MULTIVITAMINS, THERA 1 EACH TAB PO SCH (11:37)
--- NOTE | 2016-10-20 12:59 | P.PN ---
Subjective Principal diagnosis: Acute on chronic renal failure, acute congestive heart failure exacerbation, anemia Patient is a 71-year-old female who presented to [facility] with severe shortness of breath and severe weakness, she had evidence of worsening of her kidney function, and evidence of acute congestive heart failure exacerbation she was initially admitted to ICU. Currently she is on telemetry floor Patient was started on IV Lasix drip yesterday she was also started on IV dopamine drip to improve kidney perfusion. Kidney function improved significantly since admission patient lost about 6-7 pounds since admission Cardiology and nephrology consultation following Objective - Vital Signs Vital signs: Vital Signs Temp 97.7 F 10/20/16 11:46 Pulse 72 10/20/16 11:46 Resp 18 10/20/16 11:46 BP 90/57 10/20/16 11:46 Pulse Ox 100 10/20/16 11:46 Intake & Output 10/19/16 10/20/16 10/20/16 18:59 06:59 18:59 Intake Total 360 505 Output Total 600 750 Balance -240 -245 Weight 86.5 kg Intake: IV 55 Sodium Chloride 0.9% 1, 55 000 ml @ 20 mls/hr IV . Q24H [facility] Rx#:[id number] Oral 360 450 Output: Urine 600 750 Other: Voiding Method Indwelling Catheter Indwelling Catheter Indwelling Catheter # Voids 1 - Exam In general patient is alert and oriented 3 in no apparent distress HEENT head normocephalic and atraumatic Neck is supple no JVD no goiter no lymphadenopathy Chest exam reveals a few scattered crackles in both lung copeland no wheezing Cardiac exam reveals regular heart sounds S1 and S2 no gallops no murmurs Abdomen is soft nontender no organomegaly, was normal bowel sounds Extremity exam reveals 2+ edema no cyanosis or clubbing - Labs CBC & Chem 7: 10/20/16 06:10 10/20/16 06:10 Labs: Abnormal Lab Results - Last 24 Hours (Table) 10/20/16 10/20/16 Range/Units 06:10 06:10 RBC 2.79 L (3.80-5.40) m/uL Hgb 9.2 L (11.4-16.0) gm/dL Hct 30.5 L (34.0-46.0) % MCV 109.2 H (80.0-100.0) fL MCHC 30.2 L (31.0-37.0) g/dL RDW 23.1 H (11.5-15.5) % Lymphocytes # 0.4 L (1.0-4.8) k/uL Sodium 135 L (137-145) mmol/L Chloride 94 L (98-107) mmol/L Carbon Dioxide 31 H (22-30) mmol/L BUN 78 H (7-17) mg/dL Creatinine 1.29 H (0.52-1.04) mg/dL Assessment and Plan Plan: #1 acute renal failure related to dehydration due to diuretic use and due to cardiorenal syndrome, BUN and Cr improving #2 severe cardiomyopathy with ejection fraction 20-25% #3 underlying history of pulmonary hypertension #4 underlying history of anemia, Receiving IV Iron, will monitor #5 hyperkalemia on presentation improved #6 hyponatremia, resolved #7 underlying history of gout #8 hypotension At this time patient is maintained on IV Lasix and IV iron supplements she received 1 unit of red blood cell transfusion during this admission she is doing somewhat better. she has lost about 4 kg since admission, however she regined the weight after stopping lasix drip Will monitor closely
--- NOTE | 2016-10-20 14:20 | XR ---
EXAMINATION TYPE: XR chest 1V portable DATE OF EXAM: 10/20/2016 1:14 PM COMPARISON: Prior chest x-ray 14 October 2016 HISTORY: Congestive heart failure, dyspnea TECHNIQUE: Single frontal view of the chest is obtained. FINDINGS: The heart is markedly enlarged. Central vascularity and interstitium are increased. Airspa ce disease persists in the left lower lobe greater than right lung. No pneumothorax. There may be ass ociated effusions. Intracardiac defibrillator leads are stable. The findings are similar to prior quintin m. IMPRESSION: Congestive heart failure, pneumonia not excluded, follow-up recommended
[2016-10-20] MEDS: RIVAROXABAN 15 MG TAB PO SCH (15:38)
[2016-10-20] MEDS: FOLIC ACID 1 MG TAB PO SCH (15:38)
[2016-10-20] MEDS: FERROUS SULFATE 325 MG TAB PO SCH (15:38)
--- NOTE | 2016-10-20 15:43 | P.PN ---
Subjective This is a 71-year-old female with multiple medical problems including coronary artery disease, ischemic cardiomyopathy, status post AICD, chronic atrial fibrillation, chronic renal failure, chronic respiratory failure and chronic systolic heart failure. She was admitted to the hospital with acute exacerbation of chronic systolic heart failure as well as acute on chronic renal failure and hyperkalemia. She is currently on IV Lasix and is on a 1.2 L fluid restriction. Nephrology is also on the case. 10 patient does not feel she is breathing much better from yesterday. Complains of shortness of breath with minimal activity area and she denies any complaints of chest discomfort or palpitations. Continues to complain of lower extremity edema. Objective - Vital Signs Vital signs: Vital Signs Temp 97.7 F 10/20/16 11:46 Pulse 72 10/20/16 11:46 Resp 18 10/20/16 11:46 BP 90/57 10/20/16 11:46 Pulse Ox 100 10/20/16 11:46 Intake & Output 10/19/16 10/20/16 10/20/16 18:59 06:59 18:59 Intake Total 360 505 Output Total 600 750 500 Balance -240 -245 -500 Weight 86.5 kg Intake: IV 55 Sodium Chloride 0.9% 1, 55 000 ml @ 20 mls/hr IV . Q24H [facility] Rx#:[id number] Oral 360 450 Output: Urine 600 750 500 Other: Voiding Method Indwelling Catheter Indwelling Catheter Indwelling Catheter # Voids 1 - Exam PHYSICAL EXAMINATION: HEENT: Head is atraumatic, normocephalic. Pupils equal, round. Neck is supple. There is no elevated jugular venous pressure. HEART EXAMINATION: Heart sounds regular, S1 and S2 with a systolic murmur. CHEST EXAMINATION: Lungs reveal diminished air entry bilaterally with crackles to bilateral bases. No chest wall tenderness is noted on palpation or with deep breathing. ABDOMEN: Soft, nontender. Bowel sounds are heard. No organomegaly noted. EXTREMITIES: 1+ peripheral pulses with evidence of 1-2+ peripheral edema and no calf tenderness noted. NEUROLOGIC patient is awake, alert and oriented x3. . - Labs CBC & Chem 7: 10/20/16 06:10 10/20/16 06:10 Labs: Abnormal Lab Results - Last 24 Hours (Table) 10/20/16 10/20/16 Range/Units 06:10 06:10 RBC 2.79 L (3.80-5.40) m/uL Hgb 9.2 L (11.4-16.0) gm/dL Hct 30.5 L (34.0-46.0) % MCV 109.2 H (80.0-100.0) fL MCHC 30.2 L (31.0-37.0) g/dL RDW 23.1 H (11.5-15.5) % Lymphocytes # 0.4 L (1.0-4.8) k/uL Sodium 135 L (137-145) mmol/L Chloride 94 L (98-107) mmol/L Carbon Dioxide 31 H (22-30) mmol/L BUN 78 H (7-17) mg/dL Creatinine 1.29 H (0.52-1.04) mg/dL Assessment and Plan Plan: Assessment and plan #1 acute on chronic systolic heart failure #2 chronic atrial fibrillation #3 COPD #4 chronic renal failure #5 pulmonary hypertension From cardiology's perspective, medications were reviewed. We will continue the patient on IV Lasix for now. We will continue to follow the patient and provide further recommendations accordingly. The above dictated assessment and findings were discussed with signing physician. The impression and plan of care have been directed as dictated. Doris Cage, Nurse Practitioner, acting as scribe for signing physician.
[2016-10-20] MEDS: SODIUM CHLORIDE 0.9% 1,000 ML IV SCH (21:51)
[2016-10-20] MEDS: ALPRAZolam 0.25 MG TAB PO PRN (21:51)
[2016-10-21] MEDS: LEVOTHYROXINE 50 MCG TAB PO SCH (06:27)
[2016-10-21 06:42] LABS: Calcium 9.2 mg/dL (8.4-10.2); Potassium 5.3 mmol/L (3.5-5.1); Total Protein 6.4 g/dL (6.3-8.2)
[2016-10-21 07:03] LABS: Anisocytosis Moderate; Basophils # (A) 0.1 k/uL (0-0.2); Basophils % (A) 1 %; CH 33.8; CHCM 31.1; Eosinophils # (A) 0.1 k/uL (0-0.7); Eosinophils % (A) 1 %; HCT 30.3 % (34.0-46.0); HDW 3.46; HGB 9.3 gm/dL (11.4-16.0); Hypochromasia Moderate; Luc # (Auto) 0.19; Luc % (Auto) 3; Lymphocytes # (A) 0.4 k/uL (1.0-4.8); Lymphocytes % (A) 6 %; MCH 33.6 pg (25.0-35.0); MCHC 30.6 g/dL (31.0-37.0); MCV 110.1 fL (80.0-100.0); Macrocytosis Marked; Mean Platelet Volume 8.3; Monocytes # (A) 0.4 k/uL (0-1.0); Monocytes % (A) 5 %; Neutrophils # (A) 6.2 k/uL (1.3-7.7); Neutrophils % (A) 85 %; Poikilocytosis Slight; RBC 2.75 m/uL (3.80-5.40); WBC 7.3 k/uL (3.8-10.6); WBC (Perox) 7.91
[2016-10-21] MEDS: POLYETHYLENE GLYCOL 3350 17 GM POWD.PACK PO SCH (08:45)
[2016-10-21] MEDS: SODIUM FERRIC GLUCONAT-SUCROSE 125 MG in SODIUM CHLORIDE 0.9% 100 ML IVPB SCH (08:45)
[2016-10-21] MEDS: FUROSEMIDE 10 MG/ML 4 ML VIAL IV SCH ×3 (08:46→20:32)
[2016-10-21] MEDS: SILDENAFIL 20 MG TAB PO SCH ×3 (08:46→20:32)
[2016-10-21] MEDS: PANTOPRAZOLE 40 MG TABLET PO SCH ×2 (08:46→16:59)
[2016-10-21] MEDS: DOCUSATE 100 MG CAP PO SCH ×2 (08:46→20:32)
[2016-10-21] MEDS: HYDROcodone/APAP 10-325MG 1 EACH TAB PO PRN (08:58)
[2016-10-21] MEDS ORDERED: METOLAZONE 2.5 MG TAB PO STA (10:01)
--- NOTE | 2016-10-21 10:15 | P.PN ---
Subjective Patient is seen in follow-up for acute kidney injury. Patient presented with dyspnea and hypotension. She does have systolic CHF with ejection fraction of 20% with severe tricuspid regurgitation and moderate pulmonary hypertension. She is currently maintained on Lasix 40 mg IV twice daily. Dobutamine drip was discontinued on October 14. She is nonoliguric. Continues to be dyspneic. Appetite is fair. No vomiting or diarrhea. Renal function stable. Feels more tired today. Vital signs are stable. General: The patient appeared well nourished and normally developed. HEENT: Head exam is unremarkable. Neck is without jugular venous distension. LUNGS: Lungs are clear to auscultation and percussion. Breath sounds decreased. HEART: Rate and Rhythm are regular. First and second heart sounds normal. No murmurs, rubs or gallops. ABDOMEN: Abdominal exam reveals normal bowel sounds. Non-tender and non- distended. No evidence of peritonitis. EXTREMITITES: 1+ edema. Objective - Vital Signs Vital signs: Vital Signs Temp 96.8 F L 10/21/16 08:00 Pulse 75 10/21/16 08:00 Resp 18 10/21/16 08:00 BP 90/52 10/21/16 08:00 Pulse Ox 100 10/21/16 08:00 Intake & Output 10/20/16 10/21/16 10/21/16 18:59 06:59 18:59 Intake Total 520 118 Output Total 500 500 Balance -500 20 118 Weight 87.3 kg Intake: Intake, IV Titration 160 Amount Sodium Chloride 0.9% 1, 60 000 ml @ 20 mls/hr IV . Q24H [facility] Rx#:[id number] Sodium Ferric Gluconat- 100 Sucrose 125 mg In Sodium Chloride 0.9% 100 ml @ 100 mls/hr IVPB DAILY [facility] Rx#:[id number] Oral 360 118 Output: Urine 500 500 Other: Voiding Method Indwelling Catheter Indwelling Catheter Indwelling Catheter # Voids 0 - Labs CBC & Chem 7: 10/21/16 05:59 10/21/16 05:59 Labs: Abnormal Lab Results - Last 24 Hours (Table) 10/21/16 10/21/16 Range/Units 05:59 05:59 RBC 2.75 L (3.80-5.40) m/uL Hgb 9.3 L (11.4-16.0) gm/dL Hct 30.3 L (34.0-46.0) % MCV 110.1 H (80.0-100.0) fL MCHC 30.6 L (31.0-37.0) g/dL RDW 23.0 H (11.5-15.5) % Sodium 133 L (137-145) mmol/L Potassium 5.3 H (3.5-5.1) mmol/L Chloride 92 L (98-107) mmol/L Carbon Dioxide 32 H (22-30) mmol/L BUN 80 H* (7-17) mg/dL Creatinine 1.37 H (0.52-1.04) mg/dL Alkaline Phosphatase 130 H (38-126) U/L Albumin 3.2 L (3.5-5.0) g/dL Assessment and Plan Plan: Assessment: #1. Nonoliguric acute kidney injury secondary to ATN secondary to cardiorenal syndrome. Creatinine mildly worse at 1.37 today. It was 2.6 on admission. #2. Hyperkalemia secondary to acute kidney injury and potassium supplementation. #3. Hyponatremia. Appears hypervolemic in nature. #4. Chronic hypotension related to underlying cardiac status. #5. Systolic CHF with ejection fraction of 20% with severe tricuspid regurgitation and moderate pulmonary hypertension. #6. Anemia. Iron deficiency present. Status post 3 doses of IV iron. Plan: Increase Lasix to 40 mg 3 times daily. Encourage oral intake, particularly protein. Avoid nephrotoxic agents and hypotensive episodes. Maintain low salt and 1.2 L fluid restricted diet. Repeat electrolytes in the morning. Discussed with cardiology - will resume dobutamine drip as well. If no improvement in the next 48 hours, will likely require renal replacement therapy.
[2016-10-21 11:04] LABS: Manual Review Performed; Toxic Granulation Present
[2016-10-21] MEDS: DOBUTamine DRIP 500 MG in DEXTROSE/WATER 1 250ML.BAG IV SCH (11:43)
[2016-10-21] MEDS: MULTIVITAMINS, THERA 1 EACH TAB PO SCH (11:45)
--- NOTE | 2016-10-21 12:25 | P.PN ---
Subjective Principal diagnosis: Shortness of breath This is a 71-year-old female with multiple medical problems including coronary artery disease, ischemic cardiomyopathy, status post AICD, chronic atrial fibrillation, chronic renal failure, chronic respiratory failure and chronic systolic heart failure. She was admitted to the hospital with acute exacerbation of chronic systolic heart failure as well as acute on chronic renal failure and hyperkalemia. Patient is currently on Lasix 40 IV twice a day , that time of my examination this morning, patient is sitting up in the chair at bedside, she feels extremely short of breath today, states that she had a lot of difficulty in breathing through the night last night. Her weight is up 1 kg today, potassium today 5.3, sodium 133, BUN 80, creatinine 1.3. BNP level 8950. Blood pressure this morning 90/50 with a heart rate in the 70s. 91% on 2 L of oxygen. Chest x-ray performed yesterday reveals congestive cardiac failure. Objective - Vital Signs Vital signs: Vital Signs Temp 97.0 F L 10/21/16 11:47 Pulse 70 10/21/16 11:47 Resp 18 10/21/16 11:47 BP 90/52 10/21/16 08:00 Pulse Ox 91 L 10/21/16 11:47 Intake & Output 10/20/16 10/21/16 10/21/16 18:59 06:59 18:59 Intake Total 520 118 Output Total 500 500 Balance -500 20 118 Weight 87.3 kg Intake: Intake, IV Titration 160 Amount Sodium Chloride 0.9% 1, 60 000 ml @ 20 mls/hr IV . Q24H [facility] Rx#:[id number] Sodium Ferric Gluconat- 100 Sucrose 125 mg In Sodium Chloride 0.9% 100 ml @ 100 mls/hr IVPB DAILY [facility] Rx#:[id number] Oral 360 118 Output: Urine 500 500 Other: Voiding Method Indwelling Catheter Indwelling Catheter Indwelling Catheter # Voids 0 - Exam PHYSICAL EXAMINATION: HEENT: Head is atraumatic, normocephalic. Pupils equal, round. Neck is supple. There is no elevated jugular venous pressure. HEART EXAMINATION: Heart sounds regular, S1 and S2 with a systolic murmur. CHEST EXAMINATION: Lungs reveal diminished air entry bilaterally with crackles to bilateral bases. No chest wall tenderness is noted on palpation or with deep breathing. ABDOMEN: Soft, nontender. Bowel sounds are heard. No organomegaly noted. EXTREMITIES: 1+ peripheral pulses with evidence of 1-2+ peripheral edema and no calf tenderness noted. NEUROLOGIC patient is awake, alert and oriented x3. - Labs CBC & Chem 7: 10/21/16 05:59 10/21/16 05:59 Labs: Abnormal Lab Results - Last 24 Hours (Table) 10/21/16 10/21/16 Range/Units 05:59 05:59 RBC 2.75 L (3.80-5.40) m/uL Hgb 9.3 L (11.4-16.0) gm/dL Hct 30.3 L (34.0-46.0) % MCV 110.1 H (80.0-100.0) fL MCHC 30.6 L (31.0-37.0) g/dL RDW 23.0 H (11.5-15.5) % Lymphocytes # 0.4 L (1.0-4.8) k/uL Sodium 133 L (137-145) mmol/L Potassium 5.3 H (3.5-5.1) mmol/L Chloride 92 L (98-107) mmol/L Carbon Dioxide 32 H (22-30) mmol/L BUN 80 H* (7-17) mg/dL Creatinine 1.37 H (0.52-1.04) mg/dL Alkaline Phosphatase 130 H (38-126) U/L Albumin 3.2 L (3.5-5.0) g/dL Assessment and Plan (1) Systolic CHF, acute on chronic Status: Acute (2) Chronic a-fib Status: Acute (3) Acute on chronic renal failure Status: Acute (4) Hyponatremia Status: Acute (5) Chronic hypotension Status: Acute (6) Systolic CHF, acute on chronic Status: Acute (7) Iron deficiency anemia Status: Acute (8) Pulmonary HTN Status: Acute (9) COPD (chronic obstructive pulmonary disease) Narrative/Plan: on Revatio Status: Acute Plan: Patient's dose of IV Lasix has been increased to 3 times a day today by nephrology, she will be initiated on IV dobutamine. We will continue to monitor intake and output along with daily weights closely. If patient doesn't show significant improvement, she may require ultra filtration in the next 48 hours. Continue to monitor the patient's renal function and sodium levels. DNP note has been reviewed, I agree with a documented findings and plan of care. Patient was seen and examined.
[2016-10-21] MEDS: FOLIC ACID 1 MG TAB PO SCH (16:59)
[2016-10-21] MEDS: RIVAROXABAN 15 MG TAB PO SCH (16:59)
[2016-10-21] MEDS: FERROUS SULFATE 325 MG TAB PO SCH (16:59)
--- NOTE | 2016-10-21 18:54 | P.PN ---
Subjective Principal diagnosis: Acute on chronic renal failure, acute congestive heart failure exacerbation, anemia Patient is a 71-year-old female who presented to [facility] with severe shortness of breath and severe weakness, she had evidence of worsening of her kidney function, and evidence of acute congestive heart failure exacerbation she was initially admitted to ICU. Currently she is on telemetry floor Patient was started on IV Lasix drip yesterday she was also started on IV dopamine drip to improve kidney perfusion. Kidney function improved significantly since admission patient lost about 6-7 pounds since admission Cardiology and nephrology consultation following Objective - Vital Signs Vital signs: Vital Signs Temp 97.7 F 10/21/16 16:00 Pulse 70 10/21/16 16:00 Resp 18 10/21/16 16:00 BP 94/55 10/21/16 16:00 Pulse Ox 100 10/21/16 16:00 Intake & Output 10/20/16 10/21/16 10/21/16 18:59 06:59 18:59 Intake Total 520 598 Output Total 500 500 400 Balance -500 20 198 Weight 87.3 kg Intake: Intake, IV Titration 160 Amount Sodium Chloride 0.9% 1, 60 000 ml @ 20 mls/hr IV . Q24H [facility] Rx#:[id number] Sodium Ferric Gluconat- 100 Sucrose 125 mg In Sodium Chloride 0.9% 100 ml @ 100 mls/hr IVPB DAILY [facility] Rx#:[id number] Oral 360 598 Output: Urine 500 500 400 Other: Voiding Method Indwelling Catheter Indwelling Catheter Indwelling Catheter # Voids 0 - Exam In general patient is alert and oriented 3 in no apparent distress HEENT head normocephalic and atraumatic Neck is supple no JVD no goiter no lymphadenopathy Chest exam reveals a few scattered crackles in both lung copeland no wheezing Cardiac exam reveals regular heart sounds S1 and S2 no gallops no murmurs Abdomen is soft nontender no organomegaly, was normal bowel sounds Extremity exam reveals 2+ edema no cyanosis or clubbing - Labs CBC & Chem 7: 10/21/16 05:59 10/21/16 05:59 Labs: Abnormal Lab Results - Last 24 Hours (Table) 10/21/16 10/21/16 Range/Units 05:59 05:59 RBC 2.75 L (3.80-5.40) m/uL Hgb 9.3 L (11.4-16.0) gm/dL Hct 30.3 L (34.0-46.0) % MCV 110.1 H (80.0-100.0) fL MCHC 30.6 L (31.0-37.0) g/dL RDW 23.0 H (11.5-15.5) % Lymphocytes # 0.4 L (1.0-4.8) k/uL Sodium 133 L (137-145) mmol/L Potassium 5.3 H (3.5-5.1) mmol/L Chloride 92 L (98-107) mmol/L Carbon Dioxide 32 H (22-30) mmol/L BUN 80 H* (7-17) mg/dL Creatinine 1.37 H (0.52-1.04) mg/dL Alkaline Phosphatase 130 H (38-126) U/L Albumin 3.2 L (3.5-5.0) g/dL Assessment and Plan Plan: #1 acute renal failure related to dehydration due to diuretic use and due to cardiorenal syndrome, BUN and Cr improving #2 severe cardiomyopathy with ejection fraction 20-25% #3 underlying history of pulmonary hypertension #4 underlying history of anemia, Receiving IV Iron, will monitor #5 hyperkalemia on presentation improved #6 hyponatremia, resolved #7 underlying history of gout #8 hypotension At this time patient is maintained on IV Lasix dose increased to 40 mg IV every 8 hours and IV iron supplements she received 1 unit of red blood cell transfusion during this admission she is doing somewhat better. she has lost about 4 kg since admission, however she regained the weight after stopping lasix drip At this time cardiology are recommending dobutamine edema improved Will monitor closely
[2016-10-21] MEDS: SODIUM CHLORIDE 0.9% 1,000 ML IV SCH (19:46)
[2016-10-21] MEDS: ALPRAZolam 0.25 MG TAB PO PRN (22:46)
[2016-10-22] MEDS: HYDROcodone/APAP 10-325MG 1 EACH TAB PO PRN (05:20)
[2016-10-22] MEDS: LEVOTHYROXINE 50 MCG TAB PO SCH (06:20)
[2016-10-22 06:57] LABS: Anisocytosis Moderate; Basophils # (A) 0.1 k/uL (0-0.2); Basophils % (A) 1 %; CH 33.5; CHCM 30.7; Eosinophils % (A) 1 %; HCT 30.8 % (34.0-46.0); HDW 3.39; HGB 9.2 gm/dL (11.4-16.0); Hypochromasia Marked; Luc # (Auto) 0.16; Luc % (Auto) 3; Lymphocytes # (A) 0.5 k/uL (1.0-4.8); Lymphocytes % (A) 7 %; MCV 110.2 fL (80.0-100.0); Macrocytosis Marked; Mean Platelet Volume 6.9; Monocytes # (A) 0.3 k/uL (0-1.0); Monocytes % (A) 4 %; Neutrophils # (A) 5.1 k/uL (1.3-7.7); Neutrophils % (A) 84 %; RDW 22.5 % (11.5-15.5); WBC 6.1 k/uL (3.8-10.6); WBC (Perox) 6.26
[2016-10-22 07:14] LABS: Calcium 9.1 mg/dL (8.4-10.2); Total Bilirubin 0.9 mg/dL (0.2-1.3); Total Protein 6.5 g/dL (6.3-8.2)
[2016-10-22] MEDS: PANTOPRAZOLE 40 MG TABLET PO SCH ×2 (09:22→16:11)
--- NOTE | 2016-10-22 10:03 | P.PN ---
Subjective Patient is seen in follow-up for acute kidney injury. Patient presented with dyspnea and hypotension. She does have systolic CHF with ejection fraction of 20% with severe tricuspid regurgitation and moderate pulmonary hypertension. She is currently maintained on Lasix 40 mg IV three daily. Dobutamine drip was restarted 10/21. She is nonoliguric - urine output improved. Dyspnea is improved. Appetite is fair. No vomiting or diarrhea. Renal function stable. Vital signs are stable. General: The patient appeared well nourished and normally developed. HEENT: Head exam is unremarkable. Neck is without jugular venous distension. LUNGS: Lungs are clear to auscultation and percussion. Breath sounds decreased. HEART: Rate and Rhythm are regular. First and second heart sounds normal. No murmurs, rubs or gallops. ABDOMEN: Abdominal exam reveals normal bowel sounds. Non-tender and non- distended. No evidence of peritonitis. EXTREMITITES: 1+ edema. Objective - Vital Signs Vital signs: Vital Signs Temp 97 F L 10/22/16 07:43 Pulse 71 10/22/16 07:43 Resp 18 10/22/16 07:43 BP 90/55 10/22/16 07:43 Pulse Ox 96 10/22/16 07:43 Intake & Output 10/21/16 10/22/16 10/22/16 18:59 06:59 18:59 Intake Total 598 258 118 Output Total 400 800 Balance 198 -542 118 Weight 102 kg Intake: IV 258 Dextrose/Water 1 500ml. 98 bag @ 2.5 MCG/KG/MIN 7.69 mls/hr IV .Q24H [facility] with DOPamine DRIP 800 mg Rx# :[id number] Sodium Chloride 0.9% 1, 160 000 ml @ 20 mls/hr IV . Q24H [facility] Rx#:[id number] Oral 598 0 118 Output: Urine 400 800 Uretheral (Hernandez) 800 Other: Voiding Method Indwelling Catheter Indwelling Catheter - Labs CBC & Chem 7: 10/22/16 06:33 10/22/16 06:28 Labs: Abnormal Lab Results - Last 24 Hours (Table) 10/21/16 10/22/16 10/22/16 Range/Units 05:59 06:28 06:33 RBC 2.75 L 2.80 L (3.80-5.40) m/uL Hgb 9.3 L 9.2 L (11.4-16.0) gm/dL Hct 30.3 L 30.8 L (34.0-46.0) % MCV 110.1 H 110.2 H (80.0-100.0) fL MCHC 30.6 L 30.0 L (31.0-37.0) g/dL RDW 23.0 H 22.5 H (11.5-15.5) % Lymphocytes # 0.4 L 0.5 L (1.0-4.8) k/uL Sodium 133 L (137-145) mmol/L Chloride 93 L (98-107) mmol/L BUN 79 H (7-17) mg/dL Creatinine 1.26 H (0.52-1.04) mg/dL Alkaline Phosphatase 132 H (38-126) U/L Albumin 3.1 L (3.5-5.0) g/dL Assessment and Plan Plan: Assessment: #1. Nonoliguric acute kidney injury secondary to ATN secondary to cardiorenal syndrome. Renal function stable. #2. Hyperkalemia secondary to acute kidney injury and potassium supplementation. Improved. #3. Hyponatremia. Appears hypervolemic in nature. #4. Chronic hypotension related to underlying cardiac status. #5. Systolic CHF with ejection fraction of 20% with severe tricuspid regurgitation and moderate pulmonary hypertension. #6. Anemia. Iron deficiency present. Status post 3 doses of IV iron. Plan: Continue Lasix to 40 mg 3 times daily. Maintain dobutamine drip. Encourage oral intake, particularly protein. Avoid nephrotoxic agents and hypotensive episodes. Maintain low salt and 1.2 L fluid restricted diet. Repeat electrolytes in the morning. Continue to monitor renal function and urine output.
--- NOTE | 2016-10-22 10:43 | P.PN ---
Subjective Acute on chronic renal failure, acute congestive heart failure exacerbation, anemia Patient is a 71-year-old female who presented to [facility] with severe shortness of breath and severe weakness, she had evidence of worsening of her kidney function, and evidence of acute congestive heart failure exacerbation she was admitted to ICU. Patient was started on IV Lasix drip she was also started on IV dopamine drip to improve kidney perfusion. 10/12/2016 patient is sitting at bedside chair. She reports that her shortness of breath is improving. She remains on a Lasix drip and dopamine. Chest x-ray shows worsening vascular congestion. Cardiology is following. Patient denies chest pain. Denies any nausea or vomiting. denies any difficulty urinating. 10/15/2016 patient's breathing is showing improvement. She still remained on any IV Lasix drip. Dopamine drip discontinued yesterday. Patient still having significant lower extremity edema slight improvement noted. Denies any chest pain or shortness breath. Denies any nausea or vomiting. Reports about 4 days since last bowel movement. she is passing gas. She denies any abdominal pain. denies any nausea or vomiting 10/16/2016 patient and planning more shortness of breath today. Lasix drip was discontinued yesterday. She is currently on IV Lasix 40 mg every 12 hours. Zaroxolyn held this morning her nephrology. Patient denies any chest pain. Denies any nausea or vomiting. patient received port small bowel movement after lactulose yesterday 10/19/2016 patient still having shortness of breath and lower extremity edema. During that she is not feeling very well. IV Lasix was decreased to once a day yesterday. Case discussed with nephrology. They are recommending Lasix to be increased back to twice a day. Patient denies any chest pain. Denies any nausea or vomiting she is reporting bowel movements. Denies any difficulty urinating. Patient difficult IV start. IV 10 days old. She'll be going for PICC line placement due to poor IV access 10/22/2016 patient still having lower extremity edema and shortness of breath with activity. Patient was started back on the dobutamine drip yesterday. Weight was measured at 102 kg this morning while lying in bed. Nursing staff will be rechecking weight with patient standing later this morning. Patient reports having bowel movements a couple days ago. Denies any nausea or vomiting. Objective - Vital Signs Vital signs: Vital Signs Temp 97 F L 10/22/16 07:43 Pulse 71 10/22/16 07:43 Resp 18 10/22/16 07:43 BP 90/55 10/22/16 07:43 Pulse Ox 96 10/22/16 07:43 Intake & Output 10/21/16 10/22/16 10/22/16 18:59 06:59 18:59 Intake Total 598 258 118 Output Total 400 800 Balance 198 -542 118 Weight 102 kg Intake: IV 258 Dextrose/Water 1 500ml. 98 bag @ 2.5 MCG/KG/MIN 7.69 mls/hr IV .Q24H FERMÍN with DOPamine DRIP 800 mg Rx# :[id number] Sodium Chloride 0.9% 1, 160 000 ml @ 20 mls/hr IV . Q24H FERMÍN Rx#:[id number] Oral 598 0 118 Output: Urine 400 800 Uretheral (Hernandez) 800 Other: Voiding Method Indwelling Catheter Indwelling Catheter - Exam Head normocephalic Neck supple Lungs crackles at bases with a few scattered wheezes Heart irregular Abdomen is soft nontender nondistended positive bowel sounds no hepatosplenomegaly Extremities 2+ pitting edema bilateral lower extremities Neuro alert and orientated to 3 - Labs CBC & Chem 7: 10/22/16 06:33 10/22/16 06:28 Labs: Abnormal Lab Results - Last 24 Hours (Table) 10/21/16 10/22/16 10/22/16 Range/Units 05:59 06:28 06:33 RBC 2.75 L 2.80 L (3.80-5.40) m/uL Hgb 9.3 L 9.2 L (11.4-16.0) gm/dL Hct 30.3 L 30.8 L (34.0-46.0) % MCV 110.1 H 110.2 H (80.0-100.0) fL MCHC 30.6 L 30.0 L (31.0-37.0) g/dL RDW 23.0 H 22.5 H (11.5-15.5) % Lymphocytes # 0.4 L 0.5 L (1.0-4.8) k/uL Sodium 133 L (137-145) mmol/L Chloride 93 L (98-107) mmol/L BUN 79 H (7-17) mg/dL Creatinine 1.26 H (0.52-1.04) mg/dL Alkaline Phosphatase 132 H (38-126) U/L Albumin 3.1 L (3.5-5.0) g/dL Assessment and Plan Plan: #1 acute renal failure related to dehydration due to diuretic use and due to cardiorenal syndrome. Nephrology is following. creatinine at 1.26. Nephrology is following. #2 acute on chronic systolic CHF exacerbation with severe cardiomyopathy with ejection fraction 20-25% and severe tricuspid regurgitation and moderate pulmonary hypertension. Continue Lasix 40 mg IV every 8 hours and dobutamine drip. We'll await further recommendations per nephrology and cardiology #3 underlying history of pulmonary hypertension #4 underlying history of anemia #5 hyperkalemia on presentation #6 hypervolemic hyponatremia: Improving with Lasix. Sodium 133. Nephrology following. #7 underlying history of gout #8 chronic hypotension due to underlying cardiac status. EF of 20 to 25% #9 iron deficiency anemia. patient did require blood transfusion during this admission. Patient has been given IV iron #10 history of atrial fibrillation on Xarelto #11 chronic hypoxic respiratory failure, home O2 dependent #12 medical debility: Continue physical therapy
[2016-10-22] MEDS: SILDENAFIL 20 MG TAB PO SCH ×3 (10:54→21:49)
[2016-10-22] MEDS: DOCUSATE 100 MG CAP PO SCH ×2 (10:54→21:49)
[2016-10-22] MEDS: POLYETHYLENE GLYCOL 3350 17 GM POWD.PACK PO SCH (10:54)
[2016-10-22] MEDS: FUROSEMIDE 10 MG/ML 4 ML VIAL IV SCH ×4 (11:52→22:28)
[2016-10-22] MEDS: MULTIVITAMINS, THERA 1 EACH TAB PO SCH (12:00)
--- NOTE | 2016-10-22 13:35 | P.PN ---
Subjective Principal diagnosis: Shortness of breath This is a 71-year-old female with multiple medical problems including coronary artery disease, ischemic cardiomyopathy, status post AICD, chronic atrial fibrillation, chronic renal failure, chronic respiratory failure and chronic systolic heart failure. She was admitted to the hospital with acute exacerbation of chronic systolic heart failure as well as acute on chronic renal failure and hyperkalemia. Patient is currently on Lasix 40 IV 3 times a day , as well as IV dobutamine drip. She was quite short of breath yesterday, she does state today that overall she is feeling better. Dyspnea has improved. Renal function remaining stable. Blood pressure 98/50 with a heart rate in the 70s. Objective - Vital Signs Vital signs: Vital Signs Temp 97.4 F L 10/22/16 11:46 Pulse 70 10/22/16 11:46 Resp 20 10/22/16 11:46 BP 98/53 10/22/16 11:46 Pulse Ox 96 10/22/16 07:43 Intake & Output 10/21/16 10/22/16 10/22/16 18:59 06:59 18:59 Intake Total 598 258 118 Output Total 400 800 Balance 198 -542 118 Weight 102 kg 86.4 kg Intake: IV 258 Dextrose/Water 1 500ml. 98 bag @ 2.5 MCG/KG/MIN 7.69 mls/hr IV .Q24H FERMÍN with DOPamine DRIP 800 mg Rx# :[id number] Sodium Chloride 0.9% 1, 160 000 ml @ 20 mls/hr IV . Q24H FERMÍN Rx#:[id number] Oral 598 0 118 Output: Urine 400 800 Uretheral (Hernandez) 800 Other: Voiding Method Indwelling Catheter Indwelling Catheter Indwelling Catheter - Exam PHYSICAL EXAMINATION: HEENT: Head is atraumatic, normocephalic. Pupils equal, round. Neck is supple. There is no elevated jugular venous pressure. HEART EXAMINATION: Heart sounds regular, S1 and S2 with a systolic murmur. CHEST EXAMINATION: Lungs reveal diminished air entry bilaterally with crackles to bilateral bases. No chest wall tenderness is noted on palpation or with deep breathing. ABDOMEN: Soft, nontender. Bowel sounds are heard. No organomegaly noted. EXTREMITIES: 1+ peripheral pulses with evidence of 1-2+ peripheral edema and no calf tenderness noted. NEUROLOGIC patient is awake, alert and oriented x3. - Labs CBC & Chem 7: 10/22/16 06:33 10/22/16 06:28 Labs: Abnormal Lab Results - Last 24 Hours (Table) 10/22/16 10/22/16 Range/Units 06:28 06:33 RBC 2.80 L (3.80-5.40) m/uL Hgb 9.2 L (11.4-16.0) gm/dL Hct 30.8 L (34.0-46.0) % MCV 110.2 H (80.0-100.0) fL MCHC 30.0 L (31.0-37.0) g/dL RDW 22.5 H (11.5-15.5) % Lymphocytes # 0.5 L (1.0-4.8) k/uL Sodium 133 L (137-145) mmol/L Chloride 93 L (98-107) mmol/L BUN 79 H (7-17) mg/dL Creatinine 1.26 H (0.52-1.04) mg/dL Alkaline Phosphatase 132 H (38-126) U/L Albumin 3.1 L (3.5-5.0) g/dL Assessment and Plan (1) Systolic CHF, acute on chronic Status: Acute (2) Chronic a-fib Status: Acute (3) Acute on chronic renal failure Status: Acute (4) Hyponatremia Status: Acute (5) Chronic hypotension Status: Acute (6) Systolic CHF, acute on chronic Status: Acute (7) Iron deficiency anemia Status: Acute (8) Pulmonary HTN Status: Acute (9) COPD (chronic obstructive pulmonary disease) Status: Acute Plan: From cardiology's perspective, we'll recommend to continue current dose of IV Lasix along with dobutamine drip. We will check lytes BUN and creatinine in in the morning. DNP note has been reviewed, I agree with a documented findings and plan of care. Patient was seen and examined.
[2016-10-22] MEDS ORDERED: LIDOCAINE 2% INJ 20 MG/ML (20 ML MDV) ONE (15:05)
[2016-10-22 15:19] VITALS: BMI 35.9
[2016-10-22] MEDS: FERROUS SULFATE 325 MG TAB PO SCH (16:10)
[2016-10-22] MEDS: FOLIC ACID 1 MG TAB PO SCH (16:10)
[2016-10-22] MEDS: RIVAROXABAN 15 MG TAB PO SCH (16:11)
[2016-10-22] MEDS: SODIUM CHLORIDE 0.9% 1,000 ML IV SCH (19:52)
[2016-10-22] MEDS: DOBUTamine DRIP 500 MG in DEXTROSE/WATER 1 250ML.BAG IV SCH (19:54)
[2016-10-23 04:22] LABS: Anisocytosis Moderate; CH 34.1; CHCM 31.3; HCT 30.2 % (34.0-46.0); HDW 3.46; HGB 9.3 gm/dL (11.4-16.0); Hypochromasia Moderate; MCH 34.1 pg (25.0-35.0); MCV 110.2 fL (80.0-100.0); Macrocytosis Marked; Mean Platelet Volume 8.1; Poikilocytosis Slight; RBC 2.74 m/uL (3.80-5.40); RDW 22.9 % (11.5-15.5); WBC 5.4 k/uL (3.8-10.6)
[2016-10-23 04:45] LABS: Potassium 4.6 mmol/L (3.5-5.1)
[2016-10-23] MEDS: LEVOTHYROXINE 50 MCG TAB PO SCH (06:50)
[2016-10-23] MEDS: DOCUSATE 100 MG CAP PO SCH ×2 (08:06→21:16)
[2016-10-23] MEDS: PANTOPRAZOLE 40 MG TABLET PO SCH ×2 (08:06→15:27)
[2016-10-23] MEDS: POLYETHYLENE GLYCOL 3350 17 GM POWD.PACK PO SCH (08:07)
[2016-10-23] MEDS: SILDENAFIL 20 MG TAB PO SCH ×3 (08:08→21:17)
--- NOTE | 2016-10-23 08:21 | P.PN ---
Subjective Patient is seen in follow-up for acute kidney injury. Patient presented with dyspnea and hypotension. She does have systolic CHF with ejection fraction of 20% with severe tricuspid regurgitation and moderate pulmonary hypertension. She is currently maintained on Lasix 40 mg IV three daily. Dobutamine drip was restarted 10/21. She is nonoliguric - urine output overnight was 800 mL. She remains dyspneic. Appetite is fair. No vomiting or diarrhea. Renal function stable. Vital signs are stable. General: The patient appeared well nourished and normally developed. HEENT: Head exam is unremarkable. Neck is without jugular venous distension. LUNGS: Lungs are clear to auscultation and percussion. Breath sounds decreased. HEART: Rate and Rhythm are regular. First and second heart sounds normal. No murmurs, rubs or gallops. ABDOMEN: Abdominal exam reveals normal bowel sounds. Non-tender and non- distended. No evidence of peritonitis. EXTREMITITES: 1+ edema. Objective - Vital Signs Vital signs: Vital Signs Temp 97.1 F L 10/23/16 08:18 Pulse 70 10/23/16 08:18 Resp 18 10/23/16 08:18 BP 100/60 10/23/16 08:18 Pulse Ox 98 10/23/16 04:00 Intake & Output 10/22/16 10/23/16 10/23/16 18:59 06:59 18:59 Intake Total 281 222.479 Output Total 350 800 Balance -69 -577.521 Weight 86.4 kg 88.1 kg Intake: IV 20 12 Dextrose/Water 1 500ml. 12 bag @ 2.5 MCG/KG/MIN 7.69 mls/hr IV .Q24H FERMÍN with DOPamine DRIP 800 mg Rx# :[id number] Invasive Line 4 20 Intake, IV Titration 210.479 Amount DOBUTamine DRIP 500 mg In 210.479 Dextrose/Water 1 250ml. bag @ 2.5 MCG/KG/MIN 6.54 mls/hr IV .Q24H FERMÍN Rx#: [id number] Oral 261 Output: Urine 350 800 Other: Voiding Method Indwelling Catheter Indwelling Catheter Indwelling Catheter - Labs CBC & Chem 7: 10/23/16 04:09 10/23/16 04:09 Labs: Abnormal Lab Results - Last 24 Hours (Table) 10/23/16 10/23/16 Range/Units 04:09 04:09 RBC 2.74 L (3.80-5.40) m/uL Hgb 9.3 L (11.4-16.0) gm/dL Hct 30.2 L (34.0-46.0) % MCV 110.2 H (80.0-100.0) fL RDW 22.9 H (11.5-15.5) % Sodium 129 L (137-145) mmol/L Chloride 92 L (98-107) mmol/L Carbon Dioxide 33 H (22-30) mmol/L BUN 76 H (7-17) mg/dL Creatinine 1.20 H (0.52-1.04) mg/dL Glucose 104 H (74-99) mg/dL Assessment and Plan Plan: Assessment: #1. Nonoliguric acute kidney injury secondary to ATN secondary to cardiorenal syndrome. Renal function stable. #2. Hyperkalemia secondary to acute kidney injury and potassium supplementation. Improved. #3. Hyponatremia. Appears hypervolemic in nature. #4. Chronic hypotension related to underlying cardiac status. #5. Systolic CHF with ejection fraction of 20% with severe tricuspid regurgitation and moderate pulmonary hypertension. #6. Anemia. Iron deficiency present. Status post 3 doses of IV iron. Plan: Start Lasix drip at 10 mL an hour. Maintain dobutamine drip. Encourage oral intake, particularly protein. Avoid nephrotoxic agents and hypotensive episodes. Maintain low salt and 1.2 L fluid restricted diet. Repeat electrolytes in the morning. Continue to monitor renal function and urine output. If no significant improvement in urine output with Lasix drip, she will require renal replacement therapy for ultrafiltration. Check chest x-ray.
--- NOTE | 2016-10-23 08:57 | XR ---
EXAMINATION TYPE: XR chest 2V DATE OF EXAM: 10/23/2016 8:51 AM COMPARISON: Chest x-ray from 3 days ago. HISTORY: Pulmonary edema difficulty breathing progress study. TECHNIQUE: Frontal and lateral views of the chest are obtained. FINDINGS: New right-sided PICC line is seen with tip in right atrium. There is redemonstration of cardiomegaly with multi lead pacemaker/AICD. There is central vascular co ngestion which is improving. There is persistent small right pleural effusion which is also felt impr kavin. There is more dense left basilar opacity felt to reflect effusion with infiltrate and/or atelec tasis stable or slightly improved. Upper lungs are clear without pneumothorax. Degenerative change bilateral glenohumeral joints is redemonstrated. Old right lateral rib fractures are redemonstrated. IMPRESSION: Persisting cardiomegaly and central vascular congestion with small left greater than rig ht pleural effusions, findings felt improved from prior study. There is persistent more dense left lo wer lung infiltrate and/or atelectasis though this is also felt slightly improved versus prior.
[2016-10-23] MEDS: FUROSEMIDE 250 MG in SODIUM CHLORIDE 0.9% 225 ML IVP SCH (09:25)
[2016-10-23] MEDS: HYDROcodone/APAP 10-325MG 1 EACH TAB PO PRN (10:36)
[2016-10-23] MEDS: DOBUTamine DRIP 500 MG in DEXTROSE/WATER 1 250ML.BAG IV SCH (11:40)
[2016-10-23] MEDS: MULTIVITAMINS, THERA 1 EACH TAB PO SCH (11:42)
--- NOTE | 2016-10-23 12:00 | P.PN ---
Subjective Principal diagnosis: Shortness of breath This is a 71-year-old female with multiple medical problems including coronary artery disease, ischemic cardiomyopathy, status post AICD, chronic atrial fibrillation, chronic renal failure, chronic respiratory failure and chronic systolic heart failure. She was admitted to the hospital with acute exacerbation of chronic systolic heart failure as well as acute on chronic renal failure and hyperkalemia. Patient is currently on Lasix 40 IV 3 times a day , this was changed to a Lasix drip today by nephrology, patient continues to be on IV dobutamine drip. Urine output marginal. Documented weight is up today. Blood pressure 90/60 with a heart rate in the 70s. Repeat chest x-ray performed today revealed persistent central vascular congestion with a small left greater than right pleural effusion, mildly improved from prior study. There is a persistent dense left lower lung infiltrate felt slightly to be improved as well. Objective - Vital Signs Vital signs: Vital Signs Temp 96.8 F L 10/23/16 11:37 Pulse 71 10/23/16 11:37 Resp 20 10/23/16 11:37 BP 91/59 10/23/16 11:37 Pulse Ox 98 10/23/16 11:37 Intake & Output 10/22/16 10/23/16 10/23/16 18:59 06:59 18:59 Intake Total 281 222.479 Output Total 350 800 Balance -69 -577.521 Weight 86.4 kg 88.1 kg Intake: IV 20 12 Dextrose/Water 1 500ml. 12 bag @ 2.5 MCG/KG/MIN 7.69 mls/hr IV .Q24H FERMÍN with DOPamine DRIP 800 mg Rx# :[id number] Invasive Line 4 20 Intake, IV Titration 210.479 Amount DOBUTamine DRIP 500 mg In 210.479 Dextrose/Water 1 250ml. bag @ 2.5 MCG/KG/MIN 6.54 mls/hr IV .Q24H FERMÍN Rx#: [id number] Oral 261 Output: Urine 350 800 Other: Voiding Method Indwelling Catheter Indwelling Catheter Indwelling Catheter - Exam PHYSICAL EXAMINATION: HEENT: Head is atraumatic, normocephalic. Pupils equal, round. Neck is supple. There is no elevated jugular venous pressure. HEART EXAMINATION: Heart sounds regular, S1 and S2 with a systolic murmur. CHEST EXAMINATION: Lungs reveal diminished air entry bilaterally with crackles to bilateral bases. No chest wall tenderness is noted on palpation or with deep breathing. ABDOMEN: Soft, nontender. Bowel sounds are heard. No organomegaly noted. EXTREMITIES: 1+ peripheral pulses with evidence of 1-2+ peripheral edema and no calf tenderness noted. NEUROLOGIC patient is awake, alert and oriented x3. - Labs CBC & Chem 7: 10/23/16 04:09 10/23/16 04:09 Labs: Abnormal Lab Results - Last 24 Hours (Table) 10/23/16 10/23/16 Range/Units 04:09 04:09 RBC 2.74 L (3.80-5.40) m/uL Hgb 9.3 L (11.4-16.0) gm/dL Hct 30.2 L (34.0-46.0) % MCV 110.2 H (80.0-100.0) fL RDW 22.9 H (11.5-15.5) % Sodium 129 L (137-145) mmol/L Chloride 92 L (98-107) mmol/L Carbon Dioxide 33 H (22-30) mmol/L BUN 76 H (7-17) mg/dL Creatinine 1.20 H (0.52-1.04) mg/dL Glucose 104 H (74-99) mg/dL Assessment and Plan (1) Systolic CHF, acute on chronic Status: Acute (2) Chronic a-fib Status: Acute (3) Acute on chronic renal failure Status: Acute (4) Hyponatremia Status: Acute (5) Chronic hypotension Status: Acute (6) Systolic CHF, acute on chronic Status: Acute (7) Iron deficiency anemia Status: Acute (8) Pulmonary HTN Status: Acute (9) COPD (chronic obstructive pulmonary disease) Status: Acute Plan: From cardiology's perspective, we agree with initiating IV Lasix drip. We will continue to follow. If the patient does not show significant improvement, nephrology is considering ultrafiltration. DNP note has been reviewed, I agree with a documented findings and plan of care. Patient was seen and examined.
--- NOTE | 2016-10-23 14:31 | P.PN ---
Subjective Principal diagnosis: Acute on chronic renal failure, acute congestive heart failure exacerbation, anemia Patient is a 71-year-old female who presented to [facility] with severe shortness of breath and severe weakness, she had evidence of worsening of her kidney function, and evidence of acute congestive heart failure exacerbation she was initially admitted to ICU. Currently she is on telemetry floor Kidney function improved significantly since admission patient lost about 6-7 pounds since admission however she regained the weight back, currently she is on dobutamine drip and IV Lasix drip Cardiology and nephrology consultation following Objective - Vital Signs Vital signs: Vital Signs Temp 96.8 F L 10/23/16 11:37 Pulse 71 10/23/16 11:37 Resp 20 10/23/16 11:37 BP 91/59 10/23/16 11:37 Pulse Ox 98 10/23/16 11:37 Intake & Output 10/22/16 10/23/16 10/23/16 18:59 06:59 18:59 Intake Total 281 222.479 118 Output Total 350 800 400 Balance -69 -577.521 -282 Weight 86.4 kg 88.1 kg Intake: IV 20 12 Dextrose/Water 1 500ml. 12 bag @ 2.5 MCG/KG/MIN 7.69 mls/hr IV .Q24H FERMÍN with DOPamine DRIP 800 mg Rx# :[id number] Invasive Line 4 20 Intake, IV Titration 210.479 Amount DOBUTamine DRIP 500 mg In 210.479 Dextrose/Water 1 250ml. bag @ 2.5 MCG/KG/MIN 6.54 mls/hr IV .Q24H FERMÍN Rx#: [id number] Oral 261 118 Output: Urine 350 800 400 Other: Voiding Method Indwelling Catheter Indwelling Catheter Indwelling Catheter - Exam In general patient is alert and oriented 3 in no apparent distress HEENT head normocephalic and atraumatic Neck is supple no JVD no goiter no lymphadenopathy Chest exam reveals a few scattered crackles in both lung [place] no wheezing Cardiac exam reveals regular heart sounds S1 and S2 no gallops no murmurs Abdomen is soft nontender no organomegaly, was normal bowel sounds Extremity exam reveals 2+ edema no cyanosis or clubbing - Labs CBC & Chem 7: 10/23/16 04:09 10/23/16 04:09 Labs: Abnormal Lab Results - Last 24 Hours (Table) 10/23/16 10/23/16 Range/Units 04:09 04:09 RBC 2.74 L (3.80-5.40) m/uL Hgb 9.3 L (11.4-16.0) gm/dL Hct 30.2 L (34.0-46.0) % MCV 110.2 H (80.0-100.0) fL RDW 22.9 H (11.5-15.5) % Sodium 129 L (137-145) mmol/L Chloride 92 L (98-107) mmol/L Carbon Dioxide 33 H (22-30) mmol/L BUN 76 H (7-17) mg/dL Creatinine 1.20 H (0.52-1.04) mg/dL Glucose 104 H (74-99) mg/dL Assessment and Plan Plan: #1 acute renal failure related to dehydration due to diuretic use and due to cardiorenal syndrome, BUN and Cr improving #2 severe cardiomyopathy with ejection fraction 20-25% #3 underlying history of pulmonary hypertension #4 underlying history of anemia, Receiving IV Iron, will monitor #5 hyperkalemia on presentation improved #6 hyponatremia, resolved #7 underlying history of gout #8 hypotension At this time patient is maintained on IV Lasix drip, she is also on dobutamine drip cardiology following she received 1 unit of red blood cell transfusion during this admission she is doing somewhat better. she has lost about 4 kg since admission, however she regained the weight after stopping lasix drip At this time cardiology are recommending dobutamine edema improved Will monitor daily weight and input and output closely
[2016-10-23] MEDS: FOLIC ACID 1 MG TAB PO SCH (15:27)
[2016-10-23] MEDS: RIVAROXABAN 15 MG TAB PO SCH (15:27)
[2016-10-23] MEDS: FERROUS SULFATE 325 MG TAB PO SCH (15:28)
[2016-10-23] MEDS: SODIUM CHLORIDE 0.9% 1,000 ML IV SCH (18:14)
[2016-10-24] MEDS: FUROSEMIDE 250 MG in SODIUM CHLORIDE 0.9% 225 ML IVP SCH (03:16)
[2016-10-24] MEDS: DOBUTamine DRIP 500 MG in DEXTROSE/WATER 1 250ML.BAG IV SCH (03:17)
[2016-10-24] MEDS: LEVOTHYROXINE 50 MCG TAB PO SCH (06:33)
[2016-10-24] MEDS: POLYETHYLENE GLYCOL 3350 17 GM POWD.PACK PO SCH (08:19)
[2016-10-24] MEDS: DOCUSATE 100 MG CAP PO SCH ×2 (08:20→21:31)
[2016-10-24] MEDS: PANTOPRAZOLE 40 MG TABLET PO SCH ×2 (08:20→16:01)
[2016-10-24] MEDS: SILDENAFIL 20 MG TAB PO SCH ×3 (08:20→21:31)
--- NOTE | 2016-10-24 10:32 | P.PN ---
Subjective Principal diagnosis: Patient is seen in follow-up for acute kidney injury. Patient presented with dyspnea and hypotension. She does have systolic CHF with ejection fraction of 20% with severe tricuspid regurgitation and moderate pulmonary hypertension. She is currently maintained on Lasix 40 mg IV three daily. Dobutamine drip was restarted 10/21. T this morning she is complaining of feeling terrible, she would like to be transferred to [facility] for a second opinion she has been there before. She says she remained short of breath weak tired and dizzy. Her appetite is poor. No abdominal pain fever chills. She is sitting in the chair and is a on nasal cannula oxygen and is to. She is on Lasix IV drip at 10 mg a day. Additionally she is on dobutamine 24-hour intake is documented at 7 79 mL output at 1800 mL. Objective - Vital Signs Vital signs: Vital Signs Temp 97.0 F L 10/24/16 08:00 Pulse 70 10/24/16 08:00 Resp 20 10/24/16 08:00 BP 105/55 10/24/16 08:00 Pulse Ox 95 10/24/16 08:00 Intake & Output 10/23/16 10/24/16 10/24/16 18:59 06:59 18:59 Intake Total 236 543.747 Output Total 400 1400 800 Balance -164 -856.253 -800 Weight 86.9 kg 86.9 kg Intake: IV 160 Sodium Chloride 0.9% 1, 160 000 ml @ 20 mls/hr IV . Q24H FERMÍN Rx#:[id number] Intake, IV Titration 383.747 Amount DOBUTamine DRIP 500 mg In 205.247 Dextrose/Water 1 250ml. bag @ 2.5 MCG/KG/MIN 6.54 mls/hr IV .Q24H FERMÍN Rx#: [id number] Furosemide 250 mg In 178.5 Sodium Chloride 0.9% 225 ml @ 10 MG/HR 10 mls/hr IVP .Q24H FERMÍN Rx#: [id number] Oral 236 Output: Urine 400 1400 800 Uretheral (Hernandez) 300 Other: Voiding Method Indwelling Catheter Indwelling Catheter Indwelling Catheter # Voids 1 1 On examination she is short of breath. HEENT exam JVP is elevated about 8-9 cm about sternal angle. No facial asymmetry Lungs are significant for bilateral fine crackles with good air entry bilaterally. No dullness percussion Heart sounds are somewhat difficult to be auscultated because of the respiratory sounds. Abdomen soft nontender Extremity exam was 2-3+ edema The left lower leg is wrapped because of supposedly blebs or weeping Neurologically she is awake alert oriented no focal motor deficit. Looks depressed. - Labs CBC & Chem 7: 10/23/16 04:09 10/23/16 04:09 Assessment and Plan Plan: Impression 1. Acute kidney injury secondary to prerenal from cardiorenal syndrome. Currently on Lasix 10 mg per hour. Remains symptomatic with shortness of breath and has clinical evidence of bilateral pulmonary edema with crackles. Urine output is 1800 mL. Inadequate response. She is on dobutamine in addition. Creatinine is 1.2 improved from 1.26 and 1.37 earlier. 2. Hypo-natremia skin to congestive heart failure. This indicates poor prognosis. Serum sodium went down from 133-129 this morning 3. Mild metabolic alkalosis from diuretics bicarb is 33 #2 severe systolic dysfunction with ejection fraction of 20%. On dobutamine drip 3. Fluid overloaded with edema and elevated JVD and pulmonary edema 4. Tricuspid regurg and pulmonary hypertension Iron deficiency anemia status post 3 doses of IV iron. Hemoglobin is 9.3 stable Recommendation. 1. Add metolazone 10 mg a day. If urine output is not adequately increased to about 1/2 L I would go up on the Lasix 20 mg per hour for a limited period of time of maybe 24 hours and see if she will respond. The choices to dialyze her and take the fluid off. Patient desires transferred to [facility]. I'll defer to the hospitalist and the aircraft communicator involved.
--- NOTE | 2016-10-24 11:11 | P.PN ---
Subjective 71-year-old female being seen. Currently sitting up in a chair patient states she cannot lay down cannot breathe when she's lying down is concerned "I feel more short of breath today. " I just don't feel good this morning feel tired" Currently patients being followed by nephrology & cardiology service. Currently is on IV dobutamine drip as well as IV Lasix. Drip The weight has been stable current weight today is 86.9 kg weight the weight the day before was 86.9 kg.. Patients being followed by nephrology for acute kidney injury. cardiology is following for an acute decompensated systolic congestive heart failure patient has a known history of ischemic cardiomyopathy status post ICD with chronic atrial fibrillation. Objective - Vital Signs Vital signs: Vital Signs Temp 97.0 F L 10/24/16 08:00 Pulse 70 10/24/16 08:00 Resp 20 10/24/16 08:00 BP 105/55 10/24/16 08:00 Pulse Ox 95 10/24/16 08:00 Intake & Output 10/23/16 10/24/16 10/24/16 18:59 06:59 18:59 Intake Total 236 543.747 Output Total 400 1400 800 Balance -164 -856.253 -800 Weight 86.9 kg 86.9 kg Intake: IV 160 Sodium Chloride 0.9% 1, 160 000 ml @ 20 mls/hr IV . Q24H [facility] Rx#:[id number] Intake, IV Titration 383.747 Amount DOBUTamine DRIP 500 mg In 205.247 Dextrose/Water 1 250ml. bag @ 2.5 MCG/KG/MIN 6.54 mls/hr IV .Q24H [facility] Rx#: [id number] Furosemide 250 mg In 178.5 Sodium Chloride 0.9% 225 ml @ 10 MG/HR 10 mls/hr IVP .Q24H [facility] Rx#: [id number] Oral 236 Output: Urine 400 1400 800 Uretheral (Hernandez) 300 Other: Voiding Method Indwelling Catheter Indwelling Catheter Indwelling Catheter # Voids 1 1 - Exam Physical exam 71-year-old female sitting up in a chair does not appear in acute distress oriented 3 Lungs bilateral fine dry crackles noted no dullness noted bilaterally adequate air movement no cough noted Heart S1-S2 audible irregular monitor A. fib with paced rhythm Abdomen soft nontender not distended indwelling Hernandez catheter in place dark grover urine Extremities currently has 2+ nonpitting edema bilaterally with chronic venous stasis changes noted dressing to the left lower extremity dry - Labs CBC & Chem 7: 10/23/16 04:09 10/23/16 04:09 Assessment and Plan Plan: Assessment and plan #1 acute renal failure related to dehydration due to diuretic use and due to cardiorenal syndrome, BUN and Cr improving #2 severe cardiomyopathy with ejection fraction 20-25% #3 underlying history of pulmonary hypertension #4 underlying history of anemia, Receiving IV Iron, will monitor #5 hyperkalemia on presentation improved #6 hyponatremia, resolved #7 underlying history of gout #8 hypotension Chronic atrial fibrillation Acute on chronic systolic congestive heart failure Iron deficiency anemia COPD Tricuspid regurg with pulmonary hypertension Fluid overload with edema with an elevated JVD The above dictated assessment and findings were discussed with dr salazar. Impression and the plan of care have been dictated as directed. Eneida Enciso nurse practitioner acting as a scribe for dr salazar Time with Patient: Greater than 30
[2016-10-24] MEDS: METOLAZONE 5 MG TAB PO SCH (11:45)
[2016-10-24] MEDS: MULTIVITAMINS, THERA 1 EACH TAB PO SCH (11:45)
[2016-10-24 11:49] LABS: ALT 26 U/L (9-52); AST 33 U/L (14-36); Alkaline Phosphatase 121 U/L (38-126); Anion Gap 12 mmol/L; Blood Urea Nitrogen 71 mg/dL (7-17); Carbon Dioxide 33 mmol/L (22-30); Chloride 92 mmol/L (98-107); Glucose 119 mg/dL (74-99); Non-African American GFR(MDRD) 50 (>60 ml/min/1.73 sqM); Potassium 4.2 mmol/L (3.5-5.1); Sodium 137 mmol/L (137-145); Total Bilirubin 0.8 mg/dL (0.2-1.3); Total Protein 6.6 g/dL (6.3-8.2)
[2016-10-24] MEDS: BUMETANIDE 12 MG in DEXTROSE 5% IN WATER 192 ML IV SCH ×2 (16:00)
[2016-10-24] MEDS: RIVAROXABAN 15 MG TAB PO SCH (16:01)
[2016-10-24] MEDS: FERROUS SULFATE 325 MG TAB PO SCH (16:01)
[2016-10-24] MEDS: FOLIC ACID 1 MG TAB PO SCH (16:01)
[2016-10-24] MEDS: SODIUM CHLORIDE 0.9% 1,000 ML IV SCH (16:02)
[2016-10-24] MEDS: ALPRAZolam 0.25 MG TAB PO PRN (16:11)
--- NOTE | 2016-10-24 16:56 | PN ---
This patient is admitted with congestive cardiac failure. Patient has been here almost 2 weeks without significant improvement. Patient continues to be short of breath with minimal activities. She has been diuresing well, but there is no significant change in the weight. First and second heart sounds are normal. Lungs reveal bilateral basal rales. Chest x-ray shows persistent for heart failure. We will discontinue the Lasix drip and started her on Bumex drip 1 mg/h, Zaroxolyn 10 mg daily is started. If the patient does not show significant improvement, she can be considered for transfer to the [facility].
[2016-10-24] MEDS: HYDROcodone/APAP 10-325MG 1 EACH TAB PO PRN (18:34)
[2016-10-25] MEDS: HYDROcodone/APAP 10-325MG 1 EACH TAB PO PRN ×3 (03:25→22:50)
[2016-10-25] MEDS: LEVOTHYROXINE 50 MCG TAB PO SCH (06:27)
[2016-10-25] MEDS: DOBUTamine DRIP 500 MG in DEXTROSE/WATER 1 250ML.BAG IV SCH (06:27)
[2016-10-25 07:10] LABS: Anisocytosis Moderate; Basophils # (A) 0.1 k/uL (0-0.2); Basophils % (A) 2 %; CH 33.6; Eosinophils # (A) 0.1 k/uL (0-0.7); Eosinophils % (A) 2 %; HCT 31.3 % (34.0-46.0); HDW 3.46; HGB 9.5 gm/dL (11.4-16.0); Hypochromasia Marked; Immature Gran Flag Slight; Luc # (Auto) 0.16; Luc % (Auto) 4; Lymphocytes # (A) 0.7 k/uL (1.0-4.8); Lymphocytes % (A) 15 %; MCH 33.4 pg (25.0-35.0); MCHC 30.4 g/dL (31.0-37.0); MCV 109.8 fL (80.0-100.0); Macrocytosis Marked; Mean Platelet Volume 8.1; Monocytes # (A) 0.3 k/uL (0-1.0); Monocytes % (A) 7 %; Neutrophils # (A) 3.2 k/uL (1.3-7.7); Neutrophils % (A) 71 %; Poikilocytosis Slight; RBC 2.85 m/uL (3.80-5.40); RDW 22.8 % (11.5-15.5); WBC 4.6 k/uL (3.8-10.6); WBC (Perox) 4.54
[2016-10-25 07:39] LABS: Calcium 8.8 mg/dL (8.4-10.2); Potassium 4.4 mmol/L (3.5-5.1); Total Bilirubin 0.8 mg/dL (0.2-1.3); Total Protein 6.5 g/dL (6.3-8.2)
[2016-10-25] MEDS: METOLAZONE 5 MG TAB PO SCH ×2 (08:03→22:03)
[2016-10-25] MEDS: PANTOPRAZOLE 40 MG TABLET PO SCH ×2 (08:03→15:54)
[2016-10-25] MEDS: SILDENAFIL 20 MG TAB PO SCH ×3 (08:03→22:03)
[2016-10-25] MEDS: POLYETHYLENE GLYCOL 3350 17 GM POWD.PACK PO SCH (08:03)
[2016-10-25] MEDS: DOCUSATE 100 MG CAP PO SCH ×2 (08:03→22:03)
[2016-10-25 08:57] LABS: Manual Review Performed; Polychromasia Present
--- NOTE | 2016-10-25 09:29 | P.PN ---
Subjective Principal diagnosis: Acute on chronic renal failure, acute congestive heart failure exacerbation, anemia Patient is a 71-year-old female who presented to [facility] with severe shortness of breath and severe weakness, she had evidence of worsening of her kidney function, and evidence of acute congestive heart failure exacerbation she was initially admitted to ICU. Currently she is on telemetry floor Kidney function improved significantly since admission patient lost about 6-7 pounds since admission however she regained the weight back, currently she is on dobutamine drip and IV Lasix drip Cardiology and nephrology consultation following Patient has shown minimal improvement since admission despite aggressive management with IV Lasix drip, also she was initially on dopamine drip for several days, and currently she is on dobutamine drip. Case was discussed was family they may want to be transferred to [facility], patient was evaluated there in the past. Objective - Vital Signs Vital signs: Vital Signs Temp 97.1 F L 10/25/16 08:00 Pulse 72 10/25/16 08:00 Resp 20 10/25/16 08:00 BP 98/56 10/25/16 08:00 Pulse Ox 93 L 10/25/16 08:00 Intake & Output 10/24/16 10/25/16 10/25/16 18:59 06:59 18:59 Intake Total 1264 453.67 Output Total 2300 200 Balance -1036 253.67 Weight 86.9 kg 87.3 kg Intake: IV 210 276 Bumetanide 12 mg In 64 Dextrose 5% in Water 192 ml @ 0.5 MG/HR 10 mls/hr IV .Q24H [facility] Rx#: [id number] DOBUTamine DRIP 500 mg In 52 Dextrose/Water 1 250ml. bag @ 2.5 MCG/KG/MIN 6.54 mls/hr IV .Q24H [facility] Rx#: [id number] Furosemide 250 mg In 90 Sodium Chloride 0.9% 225 ml @ 15 MG/HR 15 mls/hr IVP .[id number] [facility] Rx#: [id number] Sodium Chloride 0.9% 1, 120 160 000 ml @ 20 mls/hr IV . Q24H [facility] Rx#:[id number] Intake, IV Titration 40 177.67 Amount DOBUTamine DRIP 500 mg In 40 177.67 Dextrose/Water 1 250ml. bag @ 2.5 MCG/KG/MIN 6.54 mls/hr IV .Q24H [facility] Rx#: [id number] Oral 1014 Output: Urine 2300 200 Other: Voiding Method Indwelling Catheter Indwelling Catheter # Voids 1 0 - Exam In general patient is alert and oriented 3 in no apparent distress HEENT head normocephalic and atraumatic Neck is supple no JVD no goiter no lymphadenopathy Chest exam reveals a few scattered crackles in both lung copeland no wheezing Cardiac exam reveals regular heart sounds S1 and S2 no gallops no murmurs Abdomen is soft nontender no organomegaly, was normal bowel sounds Extremity exam reveals 2+ edema no cyanosis or clubbing - Labs CBC & Chem 7: 10/25/16 05:40 10/25/16 05:40 Labs: Abnormal Lab Results - Last 24 Hours (Table) 10/24/16 10/25/16 10/25/16 Range/Units 10:30 05:40 05:40 RBC 2.85 L (3.80-5.40) m/uL Hgb 9.5 L (11.4-16.0) gm/dL Hct 31.3 L (34.0-46.0) % MCV 109.8 H (80.0-100.0) fL MCHC 30.4 L (31.0-37.0) g/dL RDW 22.8 H (11.5-15.5) % Lymphocytes # 0.7 L (1.0-4.8) k/uL Chloride 92 L 93 L (98-107) mmol/L Carbon Dioxide 33 H 35 H (22-30) mmol/L BUN 71 H 68 H (7-17) mg/dL Creatinine 1.09 H 1.14 H (0.52-1.04) mg/dL Glucose 119 H 72 L (74-99) mg/dL Albumin 3.1 L 3.1 L (3.5-5.0) g/dL Assessment and Plan Plan: #1 acute renal failure related to dehydration due to diuretic use and due to cardiorenal syndrome, BUN and Cr improving #2 severe cardiomyopathy with ejection fraction 20-25% #3 underlying history of pulmonary hypertension #4 underlying history of anemia, Receiving IV Iron, will monitor #5 hyperkalemia on presentation improved #6 hyponatremia, resolved #7 underlying history of gout #8 hypotension At this time patient is maintained on IV Lasix drip, she is also on dobutamine drip cardiology following she received 1 unit of red blood cell transfusion during this admission she is doing somewhat better. she has lost about 4 kg since admission, however she regained the weight after stopping lasix drip At this time cardiology are recommending dobutamine edema improved Will monitor daily weight and input and output closely Possible transfer to [facility] tomorrow
--- NOTE | 2016-10-25 10:43 | P.PN ---
Subjective Principal diagnosis: Patient is seen in follow-up for acute kidney injury. Patient presented with dyspnea and hypotension. She does have systolic CHF with ejection fraction of 20% with severe tricuspid regurgitation and moderate pulmonary hypertension. She is currently maintained on Lasix 10 mg drip perhour and yesterday zaroxolyn 10 mg was addedd. She remians on Dobutamine drip, which was restarted 10/21. T this morning she is complaining of feeling terrible, she would like to be transferred to [facility] for a second opinion she has been there before. She says she remained short of breath weak tired and dizzy. Her appetite is poor. No abdominal pain fever chills. She is sitting in the chair and is a on nasal cannula oxygen. She is on Lasix IV drip at 10 mg a day. Additionally she is on dobutamine, and the metolazone that was started yesterday at 10 mg 24-hour intake is documented at 7 79 mL output at 1800 mL 4 day before yesterday and is somewhat better today with an intake of 1717 and urine output of 2500 mL.. Objective - Vital Signs Vital signs: Vital Signs Temp 97.1 F L 10/25/16 08:00 Pulse 70 10/25/16 08:00 Resp 20 10/25/16 08:00 BP 98/56 10/25/16 08:00 Pulse Ox 93 L 10/25/16 08:00 Intake & Output 10/24/16 10/25/16 10/25/16 18:59 06:59 18:59 Intake Total 1264 453.67 Output Total 2300 200 Balance -1036 253.67 Weight 86.9 kg 87.3 kg Intake: IV 210 276 Bumetanide 12 mg In 64 Dextrose 5% in Water 192 ml @ 0.5 MG/HR 10 mls/hr IV .Q24H [facility] Rx#: [id number] DOBUTamine DRIP 500 mg In 52 Dextrose/Water 1 250ml. bag @ 2.5 MCG/KG/MIN 6.54 mls/hr IV .Q24H [facility] Rx#: [id number] Furosemide 250 mg In 90 Sodium Chloride 0.9% 225 ml @ 15 MG/HR 15 mls/hr IVP .[id number] [facility] Rx#: [id number] Sodium Chloride 0.9% 1, 120 160 000 ml @ 20 mls/hr IV . Q24H [facility] Rx#:[id number] Intake, IV Titration 40 177.67 Amount DOBUTamine DRIP 500 mg In 40 177.67 Dextrose/Water 1 250ml. bag @ 2.5 MCG/KG/MIN 6.54 mls/hr IV .Q24H [facility] Rx#: [id number] Oral 1014 Output: Urine 2300 200 Other: Voiding Method Indwelling Catheter Indwelling Catheter Indwelling Catheter # Voids 1 0 On examination she is tired and weak sitting in a chair. HEENT exam JVP is elevated about 8-10 cm about sternal angle neck is supple no facial asymmetry Lungs are significant for bilateral fine crackles at bases fair air entry and no dullness to percussion Heart sounds are unremarkable for any murmur rub gallop Abdomen soft nontender no hepatosplenomegaly noted Extremity exam was mild edema Neurologically awake alert oriented no focal motor deficit but profoundly weak - Labs CBC & Chem 7: 10/25/16 05:40 10/25/16 05:40 Labs: Abnormal Lab Results - Last 24 Hours (Table) 10/24/16 10/25/16 10/25/16 Range/Units 10:30 05:40 05:40 RBC 2.85 L (3.80-5.40) m/uL Hgb 9.5 L (11.4-16.0) gm/dL Hct 31.3 L (34.0-46.0) % MCV 109.8 H (80.0-100.0) fL MCHC 30.4 L (31.0-37.0) g/dL RDW 22.8 H (11.5-15.5) % Lymphocytes # 0.7 L (1.0-4.8) k/uL Chloride 92 L 93 L (98-107) mmol/L Carbon Dioxide 33 H 35 H (22-30) mmol/L BUN 71 H 68 H (7-17) mg/dL Creatinine 1.09 H 1.14 H (0.52-1.04) mg/dL Glucose 119 H 72 L (74-99) mg/dL Albumin 3.1 L 3.1 L (3.5-5.0) g/dL Assessment and Plan Plan: Impression 1. Acute kidney injury secondary to prerenal from cardiorenal syndrome. Currently on Lasix 10 mg per hour. Remains symptomatic with shortness of breath and has clinical evidence of bilateral pulmonary edema with crackles. Urine output is up 1800 mL to 2500 mL with addition of metolazone yesterday. adequate response. She is on dobutamine in addition. Creatinine is 1.14, was 1.09 day before and 1.2 earlier. and 1.37 earlier. 2. Hypo-natremia secondary to congestive heart failure. This indicates poor prognosis. Serum sodium went down from 133-129, and is improved to 137 this morning 3. Mild metabolic alkalosis from diuretics bicarb is 33 > 35 #2 severe systolic dysfunction with ejection fraction of 20%. On dobutamine drip 3. Fluid overloaded with edema and elevated JVD and pulmonary edema 4. Tricuspid regurg and pulmonary hypertension Iron deficiency anemia status post 3 doses of IV iron. Hemoglobin is 9.3 > 9.5stable Recommendation. 1. Increase metolazone 10 mg a twice day. Patient desires transferred to [facility]. I'll defer to the hospitalist and the meat service team member involved.
[2016-10-25] MEDS: MULTIVITAMINS, THERA 1 EACH TAB PO SCH (11:50)
[2016-10-25] MEDS ORDERED: DARBEPOETIN ALFA 40 MCG/0.4 ML SYRINGE SQ SCH (12:00)
--- NOTE | 2016-10-25 15:21 | PN ---
This patient has refractory heart failure, ischemic cardiomyopathy. Patient seems to have improved to some extent. There is no significant change in the weight. I do not know how accurate the patient's weight, her urine output still remains poor. Patient and family wishes the patient to be transferred to the [facility]. We will try to make arrangements tomorrow. Meanwhile, we will increase the dose of the Bumex to 1 mg/h and Zaroxolyn is increased to 10 mg twice a day.
[2016-10-25] MEDS: FERROUS SULFATE 325 MG TAB PO SCH (15:54)
[2016-10-25] MEDS: RIVAROXABAN 15 MG TAB PO SCH (15:54)
[2016-10-25] MEDS: FOLIC ACID 1 MG TAB PO SCH (15:54)
[2016-10-25] MEDS: BUMETANIDE 12 MG in DEXTROSE 5% IN WATER 192 ML IV SCH ×2 (16:33)
[2016-10-25] MEDS: ALPRAZolam 0.25 MG TAB PO PRN (22:03)
[2016-10-26] MEDS: SODIUM CHLORIDE 0.9% 1,000 ML IV SCH (05:55)
[2016-10-26] MEDS: BUMETANIDE 12 MG in DEXTROSE 5% IN WATER 192 ML IV SCH ×4 (05:56→07:54)
[2016-10-26] MEDS: HYDROcodone/APAP 10-325MG 1 EACH TAB PO PRN (06:17)
[2016-10-26] MEDS: LEVOTHYROXINE 50 MCG TAB PO SCH (06:18)
[2016-10-26 07:01] LABS: Anisocytosis Moderate; Basophils % (A) 1 %; CH 33.2; CHCM 30.6; Eosinophils # (A) 0.1 k/uL (0-0.7); Eosinophils % (A) 2 %; HCT 30.1 % (34.0-46.0); HDW 3.37; HGB 9.1 gm/dL (11.4-16.0); Hypochromasia Marked; Luc # (Auto) 0.09; Luc % (Auto) 2; Lymphocytes # (A) 0.7 k/uL (1.0-4.8); Lymphocytes % (A) 16 %; MCH 33.3 pg (25.0-35.0); MCHC 30.4 g/dL (31.0-37.0); MCV 109.5 fL (80.0-100.0); Macrocytosis Marked; Mean Platelet Volume 7.4; Monocytes # (A) 0.3 k/uL (0-1.0); Monocytes % (A) 9 %; Neutrophils # (A) 2.8 k/uL (1.3-7.7); Neutrophils % (A) 70 %; RBC 2.75 m/uL (3.80-5.40); RDW 22.1 % (11.5-15.5); WBC (Perox) 4.03
[2016-10-26 07:22] LABS: ALT 25 U/L (9-52); AST 23 U/L (14-36); Alkaline Phosphatase 109 U/L (38-126); Anion Gap 7 mmol/L; Blood Urea Nitrogen 63 mg/dL (7-17); Calcium 8.4 mg/dL (8.4-10.2); Carbon Dioxide 38 mmol/L (22-30); Chloride 91 mmol/L (98-107); Glucose 104 mg/dL (74-99); Non-African American GFR(MDRD) 55 (>60 ml/min/1.73 sqM); Potassium 3.4 mmol/L (3.5-5.1); Sodium 136 mmol/L (137-145); Total Bilirubin 0.8 mg/dL (0.2-1.3); Total Protein 6.1 g/dL (6.3-8.2)
[2016-10-26] MEDS: PANTOPRAZOLE 40 MG TABLET PO SCH (07:55)
[2016-10-26] MEDS: POLYETHYLENE GLYCOL 3350 17 GM POWD.PACK PO SCH (07:55)
[2016-10-26] MEDS: METOLAZONE 5 MG TAB PO SCH (07:56)
[2016-10-26] MEDS: SILDENAFIL 20 MG TAB PO SCH (07:56)
[2016-10-26] MEDS: DOCUSATE 100 MG CAP PO SCH (07:56)
[2016-10-26] MEDS: MULTIVITAMINS, THERA 1 EACH TAB PO SCH (07:57)
[2016-10-26] MEDS ORDERED: POTASSIUM CHLORIDE ER 20 MEQ TAB.ER PO STA (08:31)
--- NOTE | 2016-10-26 09:20 | P.PN ---
Subjective Patient is seen in follow-up for acute kidney injury. Patient presented with dyspnea and hypotension. She does have systolic CHF with ejection fraction of 20% with severe tricuspid regurgitation and moderate pulmonary hypertension. She is currently maintained on Bumex drip. Dobutamine drip was restarted 10/21. She is nonoliguric - urine output over 3 L in the last 24 hours. She remains dyspneic. Appetite is fair. No vomiting or diarrhea. Renal function stable. Vital signs are stable. General: The patient appeared well nourished and normally developed. HEENT: Head exam is unremarkable. Neck is without jugular venous distension. LUNGS: Lungs are clear to auscultation and percussion. Breath sounds decreased. HEART: Rate and Rhythm are regular. First and second heart sounds normal. No murmurs, rubs or gallops. ABDOMEN: Abdominal exam reveals normal bowel sounds. Non-tender and non- distended. No evidence of peritonitis. EXTREMITITES: 1+ edema. Objective - Vital Signs Vital signs: Vital Signs Temp 97.2 F L 10/26/16 04:00 Pulse 70 10/26/16 04:00 Resp 20 10/26/16 04:00 BP 96/50 10/26/16 04:00 Pulse Ox 100 10/26/16 04:00 Intake & Output 10/25/16 10/26/16 10/26/16 18:59 06:59 18:59 Intake Total 1166 345 39.333 Output Total 1325 1800 Balance -159 -1455 39.333 Weight 86.9 kg Intake: IV 266 45 Bumetanide 12 mg In 90 Dextrose 5% in Water 192 ml @ 1 MG/HR 20 mls/hr IV .Q12H [facility] Rx#:[id number] DOBUTamine DRIP 500 mg In 56 45 Dextrose/Water 1 250ml. bag @ 2.5 MCG/KG/MIN 6.54 mls/hr IV .Q24H [facility] Rx#: [id number] Sodium Chloride 0.9% 1, 120 000 ml @ 20 mls/hr IV . Q24H [facility] Rx#:[id number] Intake, IV Titration 0 300 39.333 Amount Bumetanide 12 mg In 0 240 39.333 Dextrose 5% in Water 192 ml @ 1 MG/HR 20 mls/hr IV .Q12H [facility] Rx#:[id number] Sodium Chloride 0.9% 1, 60 000 ml @ 20 mls/hr IV . Q24H [facility] Rx#:[id number] Oral 900 Output: Urine 1325 1800 Other: Voiding Method Indwelling Catheter Indwelling Catheter - Labs CBC & Chem 7: 10/26/16 06:50 10/26/16 06:50 Labs: Abnormal Lab Results - Last 24 Hours (Table) 10/26/16 10/26/16 Range/Units 06:50 06:50 RBC 2.75 L (3.80-5.40) m/uL Hgb 9.1 L (11.4-16.0) gm/dL Hct 30.1 L (34.0-46.0) % MCV 109.5 H (80.0-100.0) fL MCHC 30.4 L (31.0-37.0) g/dL RDW 22.1 H (11.5-15.5) % Lymphocytes # 0.7 L (1.0-4.8) k/uL Sodium 136 L (137-145) mmol/L Potassium 3.4 L (3.5-5.1) mmol/L Chloride 91 L (98-107) mmol/L Carbon Dioxide 38 H (22-30) mmol/L BUN 63 H (7-17) mg/dL Glucose 104 H (74-99) mg/dL Total Protein 6.1 L (6.3-8.2) g/dL Albumin 2.8 L (3.5-5.0) g/dL Assessment and Plan Plan: Assessment: #1. Nonoliguric acute kidney injury secondary to ATN secondary to cardiorenal syndrome. Renal function stable. #2. Hyperkalemia secondary to acute kidney injury and potassium supplementation. Resolved. Now actually hypokalemic. #3. Hyponatremia. Appears hypervolemic in nature. Improved. #4. Chronic hypotension related to underlying cardiac status. #5. Systolic CHF with ejection fraction of 20% with severe tricuspid regurgitation and moderate pulmonary hypertension. #6. Anemia. Iron deficiency present. Status post 3 doses of IV iron. Plan: Maintain Bumex drip. Maintain dobutamine drip. Encourage oral intake, particularly protein. Avoid nephrotoxic agents and hypotensive episodes. Maintain low salt and 1.2 L fluid restricted diet. Repeat electrolytes in the morning. Continue to monitor renal function and urine output. No need for renal replacement therapy at this time. Replace potassium. 40 mEq today. Check magnesium level.
--- NOTE | 2016-10-26 10:29 | P.PN ---
Subjective Principal diagnosis: Shortness of breath This is a 71-year-old female with multiple medical problems including coronary artery disease, ischemic cardiomyopathy, status post AICD, chronic atrial fibrillation, chronic renal failure, chronic respiratory failure and chronic systolic heart failure. She was admitted to the hospital with acute exacerbation of chronic systolic heart failure as well as acute on chronic renal failure and hyperkalemia. Patient is currently on Bumex and dobutamine drips. She is also currently on metolazone 10 mg one tablet by mouth twice a day. Urine output through the night, excellent. Weight is down 1 kg today. Blood pressure this morning 96/50 with a heart rate in the 70s. Potassium this morning 3.4, BUN 63, creatinine 1.0. Arrangements are being made for the patient to transfer to [facility] today per her request. Patient follows with a heart failure specialist there. Objective - Vital Signs Vital signs: Vital Signs Temp 97.2 F L 10/26/16 04:00 Pulse 70 10/26/16 04:00 Resp 20 10/26/16 04:00 BP 96/50 10/26/16 04:00 Pulse Ox 100 10/26/16 04:00 Intake & Output 10/25/16 10/26/16 10/26/16 18:59 06:59 18:59 Intake Total 1166 345 39.333 Output Total 1325 1800 Balance -159 -1455 39.333 Weight 86.9 kg Intake: IV 266 45 Bumetanide 12 mg In 90 Dextrose 5% in Water 192 ml @ 1 MG/HR 20 mls/hr IV .Q12H [facility] Rx#:[id number] DOBUTamine DRIP 500 mg In 56 45 Dextrose/Water 1 250ml. bag @ 2.5 MCG/KG/MIN 6.54 mls/hr IV .Q24H [facility] Rx#: [id number] Sodium Chloride 0.9% 1, 120 000 ml @ 20 mls/hr IV . Q24H [facility] Rx#:[id number] Intake, IV Titration 0 300 39.333 Amount Bumetanide 12 mg In 0 240 39.333 Dextrose 5% in Water 192 ml @ 1 MG/HR 20 mls/hr IV .Q12H [facility] Rx#:[id number] Sodium Chloride 0.9% 1, 60 000 ml @ 20 mls/hr IV . Q24H [facility] Rx#:[id number] Oral 900 Output: Urine 1325 1800 Other: Voiding Method Indwelling Catheter Indwelling Catheter - Exam PHYSICAL EXAMINATION: HEENT: Head is atraumatic, normocephalic. Pupils equal, round. Neck is supple. There is no elevated jugular venous pressure. HEART EXAMINATION: Heart sounds regular, S1 and S2 with a systolic murmur. CHEST EXAMINATION: Lungs reveal diminished air entry bilaterally with crackles to bilateral bases. No chest wall tenderness is noted on palpation or with deep breathing. ABDOMEN: Soft, nontender. Bowel sounds are heard. No organomegaly noted. EXTREMITIES: 1+ peripheral pulses with evidence of 1-2+ peripheral edema and no calf tenderness noted. NEUROLOGIC patient is awake, alert and oriented x3. - Labs CBC & Chem 7: 10/26/16 06:50 10/26/16 06:50 Labs: Abnormal Lab Results - Last 24 Hours (Table) 10/26/16 10/26/16 Range/Units 06:50 06:50 RBC 2.75 L (3.80-5.40) m/uL Hgb 9.1 L (11.4-16.0) gm/dL Hct 30.1 L (34.0-46.0) % MCV 109.5 H (80.0-100.0) fL MCHC 30.4 L (31.0-37.0) g/dL RDW 22.1 H (11.5-15.5) % Lymphocytes # 0.7 L (1.0-4.8) k/uL Sodium 136 L (137-145) mmol/L Potassium 3.4 L (3.5-5.1) mmol/L Chloride 91 L (98-107) mmol/L Carbon Dioxide 38 H (22-30) mmol/L BUN 63 H (7-17) mg/dL Glucose 104 H (74-99) mg/dL Total Protein 6.1 L (6.3-8.2) g/dL Albumin 2.8 L (3.5-5.0) g/dL Assessment and Plan (1) Systolic CHF, acute on chronic Status: Acute (2) Chronic a-fib Status: Acute (3) Acute on chronic renal failure Status: Acute (4) Hyponatremia Status: Acute (5) Chronic hypotension Status: Acute (6) Systolic CHF, acute on chronic Status: Acute (7) Iron deficiency anemia Status: Acute (8) Pulmonary HTN Status: Acute (9) COPD (chronic obstructive pulmonary disease) Status: Acute Plan: From cardiology's perspective, we will continue the current dose of the Bumex drip along with dobutamine. Arrangements are being made for the patient to be transferred to [facility] today. DNP note has been reviewed, I agree with a documented findings and plan of care. Patient was seen and examined.
--- NOTE | 2016-10-26 12:22 | P.DS ---
Providers Date of admission: 10/08/16 18:31 Expected date of discharge: 10/26/16 Attending physician: Armen Jackson Consults: 10/09/16 10:07 Consult Physician Routine Consulting Provider: Diann Jenkins Consult Reason/Comments: CHF Do you want consulting provider notified?: Yes Dr. Sanchez Primary care physician: [facility] Course: Discharge diagnosis #1 acute renal failure related to dehydration due to diuretic use and due to cardiorenal syndrome. Nephrology is following. Creatinine has improved down to 1.00 #2 acute on chronic systolic CHF exacerbation with severe cardiomyopathy with ejection fraction 20-25% and severe tricuspid regurgitation and moderate pulmonary hypertension. Patient continues to not show any improvement with the Bumex drip and dobutamine drip. Patient will be transferred to [facility] for higher level of care #3 underlying history of pulmonary hypertension #4 underlying history of anemia #5 hyperkalemia on presentation #6 hypervolemic hyponatremia: Improving with Lasix. Sodium 136. Nephrology following. #7 underlying history of gout #8 chronic hypotension due to underlying cardiac status. EF of 20 to 25% #9 iron deficiency anemia. patient did require blood transfusion during this admission. Patient has been given IV iron and Aranesp. Continue with her oral iron #10 history of atrial fibrillation on Xarelto #11 chronic hypoxic respiratory failure, home O2 dependent #12 medical debility: Continue physical therapy Hospital course Patient is a 71-year-old female with coronary artery disease, ischemic cardiomyopathy, status post AICD, chronic atrial fibrillation, acute renal failure, chronic systolic heart failure and chronic respiratory failure. She presented to [facility] with severe shortness of breath and severe weakness, she had evidence of worsening of her kidney function, and evidence of acute congestive heart failure exacerbation she was admitted to ICU. Patient was started on IV Lasix drip she was also started on IV dopamine drip to improve kidney perfusion. Patient was followed by nephrology and cardiology. Patient symptoms have not shown much improvement in with current medications. Over the weekend patient was switched from IV Lasix drip to Bumex drip and is maintained also on dobutamine. Zaroxolyn was also added. Patient continues to have shortness of breath and lower extremity edema. She is requesting a transfer to [facility]. She has been to [facility] in the past. Cardiology and nephrology agree with the transfer to tertiary care center. Patient did have a slight decrease in weight from yesterday of 1 kg. However, the weight that patient had lost during the admission was regained after Lasix drip was discontinued. Patient has not shown any significant improvement and therefore will be transferred to [facility] for further evaluation and treatment. Please refer to chart for any further details. Patient Condition at Discharge: Stable Plan - Discharge Summary Discharge Medication List Allopurinol 300 mg PO DAILY 07/12/14 [History] Hydrocodone/Acetaminophen [Hydrocodon-Acetaminophn 10-325] 1 tab PO Q6HR PRN [History] Ferrous Sulfate [Iron (65 MG Elemental)] 325 mg PO DAILY@1600 12/23/15 [History] Folic Acid 1 mg PO DAILY@1600 02/04/16 [History] Multivits-Min/Iron/FA/Lutein [Centrum Silver Women Tablet] 1 tab PO DAILY [History] Sildenafil [Revatio] 20 mg PO TID #90 tab 02/27/16 [Rx] Spironolactone [Aldactone] 25 mg PO DAILY #30 tab 02/27/16 [Rx] ALPRAZolam [Xanax] 0.25 mg PO HS PRN 10/08/16 [History] Bumetanide [BUMEX] 2 mg PO BID@0800,1500 10/08/16 [History] Levothyroxine Sodium [Synthroid] 50 mcg PO DAILY 10/08/16 [History] Pantoprazole Sodium [Protonix] 40 mg PO BID@0800,1600 10/08/16 [History] Potassium Chloride [Klor-Con] 10 meq PO BID@0800,1600 10/08/16 [History] Rivaroxaban [Xarelto] 15 mg PO W/SUPPER@1600 10/08/16 [History] hydrALAZINE HCL [Apresoline] 25 mg PO TID 10/08/16 [History] Darbepoetin Constantine [Aranesp] 40 mcg SQ Q7D syringe 10/26/16 [Rx] Docusate [Colace] 100 mg PO BID cap 10/26/16 [Rx] Metolazone [Zaroxolyn] 10 mg PO BID tab 03/27/17 [Rx] Polyethylene Glycol 3350 [Miralax] 17 gm PO DAILY powd.pack 10/26/16 [Rx] Follow up Appointment(s)/Referral(s): Armen Jackson MD [Primary Care Provider] - 1 Week Activity/Diet/Wound Care/Special Instructions: Patient being transferred to [facility] Discharge Disposition: OTHER INSTITUTION NOT DEFINED
[2016-10-26 13:03] VITALS: BP 92/56; PULSE 70; RESP 22; TEMP 97
--- NOTE | 2016-11-10 10:22 | IR ---
EXAMINATION TYPE: IR cvc insert >=5 years DATE OF EXAM: 11/04/2016 4:13 PM COMPARISON: NONE CLINICAL HISTORY: Congestive heart failure, needs long-term intravenous access for therapy. PROCEDURE: After informed consent, the skin overlying the upper extremity vein was localized with ultrasound and noted to be compressible and patent. An ultrasound image was obtained and submitted on the patient' s chart. The overlying skin was prepped and draped and Lidocaine was used for local anesthesia. A s kin dwayne was made with a scalpel. Access was gained to the vein under ultrasound guidance with a 21 gauge needle and a 0.018 inch wire was advanced. Access site was dilated with Peel-Away sheath and c atheter tailored to the appropriate length and advanced such that the distal tip is at the cavoatrial junction. Spot image was obtained verifying placement. Catheter was fixed to the skin with suture and a sterile dressing was placed following hemostasis. Catheter was aspirated and flushed with sali ne. Patient was discharged in stable condition without complication. Maximal barrier technique is ut ilized. Ultrasound image is documented on the chart. Ultrasound used with sterile technique. Fluoro time and fluoroscopic images submitted to document procedure: 1.1 minutes fluoroscopy time, 37 6 intraoperative C-arm images document the procedure IMPRESSION: STATUS POST ULTRASOUND AND FLUOROSCOPIC GUIDED PICC LINE PLACEMENT, READY FOR USE. THIS PROCEDURE WAS PERFORMED BY THE UNDERSIGNED.
== END 2016-10-26 13:17 | disposition short-term general hospital (02) | DRG 291 ==
LOC: EC 16:36 → 6ICU 18:31 → 6SEL 10-10 16:47
PROVIDERS: ADMIT Internal Medicine; ATTEND Internal Medicine
PROC: 30233N1 Transfusion of Nonautologous Red Blood Cells into Peripheral Vein, Percutaneous Approach (ICD-10-PCS; principal; 2016-10-09)
DX: I13.0 Hypertensive heart and chronic kidney disease with heart failure and stage 1 through stage 4 chronic kidney disease, or unspecified chronic kidney disease (principal); I50.23 Acute on chronic systolic (congestive) heart failure; N17.0 Acute kidney failure with tubular necrosis; E87.3 Alkalosis; J96.11 Chronic respiratory failure with hypoxia; I27.2 Other secondary pulmonary hypertension; I95.89 Other hypotension; E86.0 Dehydration; I48.2 Chronic atrial fibrillation; E87.1 Hypo-osmolality and hyponatremia; Z99.81 Dependence on supplemental oxygen; E87.5 Hyperkalemia; I25.5 Ischemic cardiomyopathy; I25.110 Atherosclerotic heart disease of native coronary artery with unstable angina pectoris; E03.9 Hypothyroidism, unspecified; I07.1 Rheumatic tricuspid insufficiency; D63.1 Anemia in chronic kidney disease; D50.9 Iron deficiency anemia, unspecified; N18.9 Chronic kidney disease, unspecified; I50.9 Heart failure, unspecified; E87.6 Hypokalemia; J45.909 Unspecified asthma, uncomplicated; M06.9 Rheumatoid arthritis, unspecified; M10.9 Gout, unspecified; T50.2X5A Adverse effect of carbonic-anhydrase inhibitors, benzothiadiazides and other diuretics, initial encounter; Z79.01 Long term (current) use of anticoagulants; I25.2 Old myocardial infarction; Z82.49 Family history of ischemic heart disease and other diseases of the circulatory system; Z86.73 Personal history of transient ischemic attack (TIA), and cerebral infarction without residual deficits; Z87.891 Personal history of nicotine dependence; Z95.810 Presence of automatic (implantable) cardiac defibrillator; Z98.84 Bariatric surgery status; Z79.899 Other long term (current) drug therapy
CPT/HCPCS: 36415; 36569; 71010; 71020; 76770; 76937; 77001; 80048; 80053; 81003; 82140; 82550; 82553; 82728; 83540; 83550; 83605; 83735; 83880; 84100; 84443; 84484; 85025; 85027; 85610; 85730; 86850; 86900; 86901; 86920; 87502; 93005; 93306; 94760; 96374; 99291

== ENCOUNTER 2016-11-18 16:40 | Inpatient (IN) | payer MEDICARE ==
--- NOTE | 2016-11-18 17:04 | ED ---
General Adult HPI - General Stated complaint: Alterd Mental State Time Seen by Provider: 11/18/16 16:46 Source: patient, family, EMS, RN notes reviewed Mode of arrival: EMS Limitations: no limitations - History of Present Illness Initial comments: Patient is a pleasant 71-year-old female presenting to emergency department for syncopal episode. Episode occurred just prior to arrival. Patient was discharged from [facility] after being transferred there from our facility. Patient was admitted for congestive heart failure. Since discharge week ago patient has gained 20 pounds. At home patient had a syncopal episode. Family feels patient is acting much better at this time. Patient states she feels fine at this time except for dyspnea. Patient does not feel confused. No chest pain. No fevers. Patient has had some increased leg edema. Family is unclear if pupil size is normally equal or not. Patient has had previous cataract surgery. - Related Data Home Medications Medication Instructions Recorded Confirmed Allopurinol 300 mg PO DAILY 07/12/14 11/18/16 Hydrocodone/Acetaminophen 1 - 2 tab PO Q6HR PRN 04/22/15 11/18/16 [Hydrocodon-Acetaminophn 10-325] Ferrous Sulfate [Iron (65 MG 325 mg PO DAILY 12/23/15 11/18/16 Elemental)] Multivits-Min/Iron/FA/Lutein 1 tab PO DAILY 02/04/16 11/18/16 [Centrum Silver Women Tablet] ALPRAZolam [Xanax] 0.25 mg PO Q6H PRN 10/08/16 11/18/16 Bumetanide [BUMEX] 2 mg PO BID@0800,1500 10/08/16 11/18/16 Levothyroxine Sodium [Synthroid] 50 mcg PO DAILY 10/08/16 11/18/16 Pantoprazole Sodium [Protonix] 40 mg PO BID@0800,1600 10/08/16 11/18/16 Rivaroxaban [Xarelto] 15 mg PO W/SUPPER@1600 10/08/16 11/18/16 Amoxic-Pot Clav 500-125 mg 1 tab PO Q12HR 11/18/16 11/18/16 [Augmentin 500-125 mg] Ipratropium Nebulized [Atrovent 0.5 mg INHALATION RT-DAILY 11/18/16 11/18/16 Nebulized] Milrinone 1mg/Ml 1 dose IV CONTINUOUS 11/18/16 11/18/16 Nitroglycerin Sl Tabs [Nitrostat] 0.4 mg SUBLINGUAL Q5M PRN 11/18/16 11/18/16 Potassium Chloride ER [K-Dur 20] 20 meq PO DAILY 11/18/16 11/18/16 Previous Rx's Medication Instructions Recorded Docusate [Colace] 100 mg PO BID cap 10/26/16 Allergies Allergy/AdvReac Type Severity Reaction Status Date / Time adhesive Allergy Rash/Hives Verified 11/18/16 17:17 Review of Systems ROS Statement: Those systems with pertinent positive or pertinent negative responses have been documented in the HPI. ROS Other: All systems not noted in ROS Statement are negative. Constitutional: Denies: fever Eyes: Denies: eye pain ENT: Denies: ear pain Respiratory: Reports: dyspnea Cardiovascular: Denies: chest pain Endocrine: Reports: fatigue Gastrointestinal: Denies: abdominal pain Genitourinary: Denies: dysuria Musculoskeletal: Denies: back pain Skin: Denies: rash Neurological: Denies: headache Past Medical History Past Medical History: Atrial Fibrillation, Asthma, Coronary Artery Disease (CAD) , Chest Pain / Angina, Heart Failure, COPD, CVA/TIA, Deep Vein Thrombosis (DVT) , Myocardial Infarction ([place]), Osteoarthritis (OA), Rheumatoid Arthritis (RA), Thyroid Disorder Additional Past Medical History / Comment(s): pt stated "had a brain stem infarct and since she has had diff swallowing rt sdie of throat, 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 USES HOME O2 2 LITERS N/C at HS AND HAS NEBULIZER. EGD and April 2014 revealing gastritis and gastric polyp. PAST HX GOUT,ANEMIA/IRON DEFICIENCY, Last Myocardial Infarction Date:: 2008 History of Any Multi-Drug Resistant Organisms: None Reported Past Surgical History: Bariatric Surgery, Cholecystectomy, Heart Catheterization , Heart Catheterization With Stent, Hernia Repair, Joint Replacement, Pacemaker Additional Past Surgical History / Comment(s): BILATERAL CATARACT SURGERY, HIATAL HERNIA REPAIR, OPEN CHOLECYSTECTOMY, 3 C-SECTIONS, BILATERAL TOTAL KNEES TWICE, stomache stapled 35 years ago, EGD, patient states has AICD Pacemaker Past Anesthesia/Blood Transfusion Reactions: No Reported Reaction Additional Past Anesthesia/Blood Transfusion Reaction / Comment(s): PT HAS NEVER HAD BLOOD TRANSFUSION Date of Last Stent Placement:: 2008 Type of Cardiac Device: AICD Device Placement Date:: Jul 2016 Past Psychological History: No Psychological Hx Reported Additional Psychological History / Comment(s): LIVES WITH OF 50 YRS. SHE LIVES IN A SINGLE LEVEL HOME. PT PERFORMS OWN ADL'S. THE BATHROOM IS HANDICAP ASSESSIBLE. THEY GET MEALS ON WHEELS 4 DAYS A WEEK. HER COOKS ON THE OTHER DAYS. PT USES A CANE IF SHE HAS TO WALK A DISTANCE. PT NO LONGER DRIVES. HER DRIVES. Smoking Status: Former smoker Past Alcohol Use History: Occasional Additional Past Alcohol Use History / Comment(s): Quit smoking over 40 years ago stated only smoked a few years in her 21. 's 1 pack per week Past Drug Use History: None Reported - Past Family History Father Family Medical History: Cancer, CVA/TIA Additional Family Medical History / Comment(s): FATHER AT AGE 81YRS Mother Family Medical History: CVA/TIA, Myocardial Infarction ([place]) Additional Family Medical History / Comment(s): MOTHER IS ALIVE AT AGE 96YRS. General Exam Limitations: no limitations General appearance: alert (Somewhat drowsy), in no apparent distress Head exam: Present: atraumatic Eye exam: Present: EOMI, other (Right pupil is dilated however is reactive.) ENT exam: Present: normal oropharynx Neck exam: Present: normal inspection Respiratory exam: Present: rales, accessory muscle use, other (Answers 1 word answers) Cardiovascular Exam: Present: regular rate, normal rhythm GI/Abdominal exam: Present: soft. Absent: tenderness Extremities exam: Present: pedal edema. Absent: calf tenderness Neurological exam: Present: alert, oriented X3, CN II-XII intact. Absent: motor sensory deficit Psychiatric exam: Present: normal affect, normal mood Skin exam: Present: other (Mild purplish discoloration bilateral feet which family feels is normal) Course Vital Signs 11/18/16 11/18/16 17:17 18:04 Temperature 95.6 F L Pulse Rate 70 74 Respiratory 24 22 Rate Blood Pressure 107/54 106/57 O2 Sat by Pulse 100 100 Oximetry EKG Findings - EKG Comments: EKG Findings:: Paced rhythm at 70. QRS 190. QTC 498. QTC 537. Barry and indeterminate. Wide-complex QRS. Nonspecific ST-T. Medical Decision Making - Medical Decision Making Patient reevaluated. Patient and family updated. Case discussed in detail with Dr. Jackson, who will admit his patient - Lab Data Result diagrams: 11/18/16 17:10 11/18/16 17:45 Lab Results 11/18/16 11/18/16 11/18/16 Range/Units 17:10 17:10 17:10 WBC 8.0 (3.8-10.6) k/uL RBC 2.99 L (3.80-5.40) m/uL Hgb 10.1 L (11.4-16.0) gm/dL Hct 33.0 L (34.0-46.0) % MCV 110.1 H (80.0-100.0) fL MCH 33.9 (25.0-35.0) pg MCHC 30.8 L (31.0-37.0) g/dL RDW 18.1 H (11.5-15.5) % Plt Count 288 (150-450) k/uL Neutrophils % 84 % Lymphocytes % 8 % Monocytes % 4 % Eosinophils % 0 % Basophils % 1 % Neutrophils # 6.7 (1.3-7.7) k/uL Lymphocytes # 0.7 L (1.0-4.8) k/uL Monocytes # 0.3 (0-1.0) k/uL Eosinophils # 0.0 (0-0.7) k/uL Basophils # 0.1 (0-0.2) k/uL Manual Slide Review Performed Polychromasia Present Hypochromasia Marked Poikilocytosis Slight Anisocytosis Slight Macrocytosis Marked Target Cells Present Ovalocytes Present PT 13.0 H (9.0-12.0) sec INR 1.3 (<1.1) APTT 30.2 H (22.0-30.0) sec Sodium (137-145) mmol/L Potassium (3.5-5.1) mmol/L Chloride (98-107) mmol/L Carbon Dioxide (22-30) mmol/L Anion Gap mmol/L BUN (7-17) mg/dL Creatinine (0.52-1.04) mg/dL Est GFR (MDRD) Af Amer (>60 ml/min/1.73 sqM) Est GFR (MDRD) Non-Af (>60 ml/min/1.73 sqM) Glucose (74-99) mg/dL Calcium (8.4-10.2) mg/dL Total Bilirubin (0.2-1.3) mg/dL AST (14-36) U/L ALT (9-52) U/L Alkaline Phosphatase (38-126) U/L Total Creatine Kinase <20 L (30-135) U/L CK-MB (CK-2) 3.9 H* (0.0-2.4) ng/mL CK-MB (CK-2) Rel Index 0.0 Troponin I 0.013 (0.000-0.034) ng/mL NT-Pro-B Natriuret Pep pg/mL Total Protein (6.3-8.2) g/dL Albumin (3.5-5.0) g/dL 11/18/16 11/18/16 Range/Units 17:10 17:45 WBC (3.8-10.6) k/uL RBC (3.80-5.40) m/uL Hgb (11.4-16.0) gm/dL Hct (34.0-46.0) % MCV (80.0-100.0) fL MCH (25.0-35.0) pg MCHC (31.0-37.0) g/dL RDW (11.5-15.5) % Plt Count (150-450) k/uL Neutrophils % % Lymphocytes % % Monocytes % % Eosinophils % % Basophils % % Neutrophils # (1.3-7.7) k/uL Lymphocytes # (1.0-4.8) k/uL Monocytes # (0-1.0) k/uL Eosinophils # (0-0.7) k/uL Basophils # (0-0.2) k/uL Manual Slide Review Polychromasia Hypochromasia Poikilocytosis Anisocytosis Macrocytosis Target Cells Ovalocytes PT (9.0-12.0) sec INR (<1.1) APTT (22.0-30.0) sec Sodium 129 L (137-145) mmol/L Potassium 7.8 H* (3.5-5.1) mmol/L Chloride 85 L (98-107) mmol/L Carbon Dioxide 32 H (22-30) mmol/L Anion Gap 12 mmol/L BUN 93 H* (7-17) mg/dL Creatinine 3.09 H (0.52-1.04) mg/dL Est GFR (MDRD) Af Amer 18 (>60 ml/min/1.73 sqM) Est GFR (MDRD) Non-Af 15 (>60 ml/min/1.73 sqM) Glucose 131 H (74-99) mg/dL Calcium 10.1 (8.4-10.2) mg/dL Total Bilirubin 1.0 (0.2-1.3) mg/dL AST 44 H (14-36) U/L ALT 29 (9-52) U/L Alkaline Phosphatase 144 H (38-126) U/L Total Creatine Kinase (30-135) U/L CK-MB (CK-2) (0.0-2.4) ng/mL CK-MB (CK-2) Rel Index Troponin I (0.000-0.034) ng/mL NT-Pro-B Natriuret Pep 99024 pg/mL Total Protein 8.5 H (6.3-8.2) g/dL Albumin 4.0 (3.5-5.0) g/dL - Radiology Data Radiology results: image reviewed (Computed tomography scan of the brain shows no acute abnormality. 1 view chest x-ray shows CHF and pleural effusions.) Critical Care Time Critical Care Time: Yes Total Critical Care Time: 32 Disposition Clinical Impression: CHF (congestive heart failure), Acute renal failure (ARF), Hyperkalemia Disposition: ADMITTED IP TO THIS HOSP Condition: Serious
--- NOTE | 2016-11-18 17:25 | CT ---
EXAMINATION TYPE: CT brain wo con DATE OF EXAM: 11/18/2016 5:19 PM COMPARISON: 11/26/2012 HISTORY: Syncope CT DLP: mGycm Automated exposure control for dose reduction was used. FINDINGS: Ventricles have normal size. There is no mass effect nor midline shift. There is no sign of intracran ial hemorrhage. The calvarium is intact. IMPRESSION: Normal for age unenhanced head CT scan. No change compared to old exam.
[2016-11-18 17:35] LABS: INR 1.3 (<1.1); Partial Thromboplastin Time 30.2 sec (22.0-30.0)
[2016-11-18 17:39] LABS: Anisocytosis Slight; Basophils # (A) 0.1 k/uL (0-0.2); Basophils % (A) 1 %; CH 33.4; CHCM 30.5; Eosinophils % (A) 0 %; HDW 3.62; HGB 10.1 gm/dL (11.4-16.0); Hypochromasia Marked; Luc # (Auto) 0.23; Luc % (Auto) 3; Lymphocytes # (A) 0.7 k/uL (1.0-4.8); Lymphocytes % (A) 8 %; MCH 33.9 pg (25.0-35.0); MCHC 30.8 g/dL (31.0-37.0); MCV 110.1 fL (80.0-100.0); Macrocytosis Marked; Mean Platelet Volume 7.6; Monocytes # (A) 0.3 k/uL (0-1.0); Monocytes % (A) 4 %; Neutrophils # (A) 6.7 k/uL (1.3-7.7); Neutrophils % (A) 84 %; Poikilocytosis Slight; RBC 2.99 m/uL (3.80-5.40); RDW 18.1 % (11.5-15.5); WBC (Perox) 8.02
[2016-11-18 17:49] LABS: Creatine Kinase <20 U/L (30-135)
--- NOTE | 2016-11-18 17:50 | XR ---
EXAMINATION TYPE: XR chest 1V portable DATE OF EXAM: 11/18/2016 5:37 PM COMPARISON: 10/23/2016 HISTORY: Short of breath TECHNIQUE: Single frontal view of the chest is obtained. FINDINGS: Heart is enlarged. There is pulmonary vascular congestion. There is blunting of costophren ic angles. There is a left axillary pacemaker with the lead tips in the right ventricle. There are ch est leads. There is right central venous catheter with the tip probably in the right atrium. IMPRESSION: Congestive heart failure with pleural effusions. There is now a significant change casandra red to last exam. Left lower lobe pneumonia cannot be excluded.
[2016-11-18 18:02] LABS: Troponin I 0.013 ng/mL (0.000-0.034)
[2016-11-18 18:10] LABS: Creatine Kinase MB 3.9 ng/mL (0.0-2.4); Manual Review Performed; Ovalocytes Present; Polychromasia Present; Target Cells Present
[2016-11-18 18:19] LABS: Calcium 10.1 mg/dL (8.4-10.2); Total Protein 8.5 g/dL (6.3-8.2)
[2016-11-18 18:28] LABS: Potassium 7.8 mmol/L (3.5-5.1)
[2016-11-18] MEDS ORDERED: FUROSEMIDE 10 MG/ML 4 ML VIAL IV STA (18:32)
[2016-11-18] MEDS ORDERED: SODIUM BICARB 8.4% 50 ML SYR (1 MEQ/ML) IV STA (18:35)
[2016-11-18] MEDS ORDERED: DEXTROSE 50%-WATER 50 ML SYRINGE IVP STA (18:35)
[2016-11-18] MEDS ORDERED: SODIUM POLYSTYRENE SULFONATE 15 GM/60 ML BOTTLE PO STA (18:35)
[2016-11-18] MEDS ORDERED: ALBUTEROL NEBULIZED 2.5 MG/3 ML INHALATION STA (18:35)
[2016-11-18] MEDS ORDERED: INSULIN REGULAR 100 UNIT/ML VIAL IV ONE (18:36)
[2016-11-18] MEDS ORDERED: ASPIRIN 325 MG TAB PO STA (18:40)
[2016-11-18] MEDS ORDERED: CALCIUM GLUCONATE 1,000 MG in SODIUM CHLORIDE 0.9% 100 ML IVPB ONE (18:45)
[2016-11-18] MEDS: NITROGLYCERIN OINT 1 INCH/GM PACKET TOPICAL SCH (19:06)
[2016-11-18 20:37] LABS: Glucose,Whole Blood 122 mg/dL (75-99)
[2016-11-19] MEDS ORDERED: FUROSEMIDE 10 MG/ML 4 ML VIAL IV SCH
[2016-11-19] MEDS ORDERED: ALPRAZolam 0.25 MG TAB PO PRN (00:11)
[2016-11-19] MEDS ORDERED: SODIUM POLYSTYRENE SULFONATE 30 GM/120 ML BOTTLE RECTAL STA (00:16)
[2016-11-19] MEDS: NITROGLYCERIN OINT 1 INCH/GM PACKET TOPICAL SCH ×2 (00:26→09:32)
[2016-11-19] MEDS ORDERED: CALCIUM GLUCONATE 1,000 MG in SODIUM CHLORIDE 0.9% 100 ML IVPB ONE (01:47)
[2016-11-19] MEDS ORDERED: DEXTROSE 50%-WATER 50 ML SYRINGE IVP STA (01:48)
[2016-11-19] MEDS ORDERED: INSULIN REGULAR 100 UNIT/ML VIAL IV ONE (01:49)
[2016-11-19] MEDS ORDERED: LIDOCAINE 1% INJ 10MG/ML (20 ML MDV) ONE (07:00)
[2016-11-19] MEDS ORDERED: HEPARIN SODIUM 1,000 UNIT/ML VIAL ONE (07:00)
--- NOTE | 2016-11-19 07:31 | P.PN ---
Progress Note - Text Preoperative diagnosis: Acute kidney injury with life-threatening hyperkalemia Postoperative diagnosis: Acute kidney injury with life-threatening hyperkalemia Procedure: Temporary right femoral dialysis catheter Physician: Hodan JACOBSON Procedure: After obtaining informed consent, the right groin was prepped and draped in the usual sterile fashion. The area overlying the right common femoral vein was visualized with ultrasound and infiltrated with a solution of 1% lidocaine. Using ultrasound guidance, a 21-gauge needle was placed into the right common femoral vein and an 018" wire was threaded proximally. The needle was removed and a sheath and core were placed. The wire and core were removed and an 035" J -wire was threaded into the right iliac vein. The tract into the iliac vein was sequentially dilated and a 20 cm dialysis catheter was placed. Both ports aspirated and flushed without difficulty and were capped with a solution of 1000 units of heparin per cc. The catheter was secured with 2-0 silk suture. Sterile dressing was placed. The patient tolerated the procedure without difficulty.
[2016-11-19] MEDS ORDERED: HEPARIN SODIUM,PORCINE 5,000 UNIT/ML 1 ML VIAL ONE (08:00)
[2016-11-19 08:29] VITALS: BMI 32.1
[2016-11-19] MEDS ORDERED: HYDROcodone/APAP 10-325MG 1 EACH TAB PO PRN (08:53)
[2016-11-19] MEDS ORDERED: LEVOTHYROXINE 50 MCG TAB PO SCH (09:00)
[2016-11-19] MEDS ORDERED: ASPIRIN 325 MG TAB PO SCH (09:00)
[2016-11-19] MEDS: FERROUS SULFATE 325 MG TAB PO SCH ×2 (09:25→09:38)
[2016-11-19] MEDS: MULTIVITAMINS, THERA 1 EACH TAB PO SCH ×2 (09:25→09:44)
[2016-11-19] MEDS: DOCUSATE 100 MG CAP PO SCH ×2 (09:25→09:39)
[2016-11-19 10:40] VITALS: PULSE 70
--- NOTE | 2016-11-19 10:41 | P.HPIM ---
History of Present Illness H&P Date: 11/19/16 Chief Complaint: Syncopal episode with shortness of breath This is a 71-year-old female with past medical history of coronary artery disease, ischemic cardiomyopathy with AICD, chronic atrial fibrillation, renal failure, chronic systolic heart failure and chronic respiratory failure. Also has a history of moderate pulmonary hypertension. She has a known EF of 20-25% . Patient was a recent transfer from [facility] for congestive heart failure. Patient was discharged about a week ago from [facility]. Had been doing well. Yesterday evening patient was getting ready for Bed went to use the restroom had bowel movement. Family helped her back into her wheelchair. She is transported to the bed. A handout her stand and get into bed. And as she was laying down into bed patient passed out completely for about 2 seconds. She came to and was having difficulty breathing. EMS was called and she was brought into the emergency room for further evaluation and treatment. Chest x-ray shows congestive heart failure with pleural effusions. Left lower lobe pneumonia cannot be excluded. BNP 14, 700. Patient started on IV Lasix 40 every 8 hours. Cardiology and pulmonary services have been consulted. She was also found to have acute kidney injury with a creatinine of 3.09. And severe urgent hyperkalemia with potassium of 7.8. Patient was given medications. Potassium is down to 6.5. She is scheduled for dialysis today. Patient had recently been started on Augmentin outpatient. She took 1 day of antibiotics. She had been having a productive cough. History was obtained from . Patient is currently on BiPAP. Patient is currently on Milrinone for her congestive heart failure and pulmonary hypertension. Patient denies any chest pain shortness breath. There is no loss of bowel or bladder control. Denies any nausea or vomiting. Denies any bowel movement changes or urinary symptoms. Computed tomography scan of the brain was normal. Patient currently remains in the ER as ICU overflow. We are working on transferring patient to [facility] due to her complex history as well as being on Milrinone. She will require a higher level of care. 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 USES HOME O2 2 LITERS N/C at HS AND HAS NEBULIZER. EGD and April 2014 revealing gastritis and gastric polyp. PAST HX GOUT,ANEMIA/IRON DEFICIENCY, Last Myocardial Infarction Date:: 2008 History of Any Multi-Drug Resistant Organisms: None Reported Past Surgical History: Bariatric Surgery, Cholecystectomy, Heart Catheterization , Heart Catheterization With Stent, Hernia Repair, Joint Replacement, Pacemaker Additional Past Surgical History / Comment(s): BILATERAL CATARACT SURGERY, HIATAL HERNIA REPAIR, OPEN CHOLECYSTECTOMY, 3 C-SECTIONS, BILATERAL TOTAL KNEES TWICE, stomache stapled 35 years ago, EGD, patient states has AICD Pacemaker Past Anesthesia/Blood Transfusion Reactions: No Reported Reaction Additional Past Anesthesia/Blood Transfusion Reaction / Comment(s): PT HAS NEVER HAD BLOOD TRANSFUSION Date of Last Stent Placement:: 2008 Type of Cardiac Device: AICD Device Placement Date:: Jul 2016 Past Psychological History: No Psychological Hx Reported Additional Psychological History / Comment(s): LIVES WITH OF 50 YRS. SHE LIVES IN A SINGLE LEVEL HOME. PT PERFORMS OWN ADL'S. THE BATHROOM IS HANDICAP ASSESSIBLE. THEY GET MEALS ON WHEELS 4 DAYS A WEEK. HER COOKS ON THE OTHER DAYS. PT USES A CANE IF SHE HAS TO WALK A DISTANCE. PT NO LONGER DRIVES. HER DRIVES. Smoking Status: Former smoker Past Alcohol Use History: Occasional Additional Past Alcohol Use History / Comment(s): Quit smoking over 40 years ago stated only smoked a few years in her 21. 's 1 pack per week Past Drug Use History: None Reported - Past Family History Father Family Medical History: Cancer, CVA/TIA Additional Family Medical History / Comment(s): FATHER AT AGE 81YRS Mother Family Medical History: CVA/TIA, Myocardial Infarction ([place]) Additional Family Medical History / Comment(s): MOTHER IS ALIVE AT AGE 96YRS. Medications and Allergies Home Medications Medication Instructions Recorded Confirmed Type Allopurinol 300 mg PO DAILY 07/12/14 11/18/16 History Hydrocodone/Acetaminophen 1 - 2 tab PO Q6HR PRN 04/22/15 11/18/16 History [Hydrocodon-Acetaminophn 10-325] Ferrous Sulfate [Iron (65 MG 325 mg PO DAILY 12/23/15 11/18/16 History Elemental)] Multivits-Min/Iron/FA/Lutein 1 tab PO DAILY 02/04/16 11/18/16 History [Centrum Silver Women Tablet] ALPRAZolam [Xanax] 0.25 mg PO Q6H PRN 10/08/16 11/18/16 History Bumetanide [BUMEX] 2 mg PO BID@0800,1500 10/08/16 11/18/16 History Levothyroxine Sodium [Synthroid] 50 mcg PO DAILY 10/08/16 11/18/16 History Pantoprazole Sodium [Protonix] 40 mg PO BID@0800,1600 10/08/16 11/18/16 History Rivaroxaban [Xarelto] 15 mg PO W/SUPPER@1600 10/08/16 11/18/16 History Amoxic-Pot Clav 500-125 mg 1 tab PO Q12HR 11/18/16 11/18/16 History [Augmentin 500-125 mg] Ipratropium Nebulized [Atrovent 0.5 mg INHALATION RT-DAILY 11/18/16 11/18/16 History Nebulized] Milrinone 1mg/Ml 1 dose IV CONTINUOUS 11/18/16 11/18/16 History Nitroglycerin Sl Tabs [Nitrostat] 0.4 mg SUBLINGUAL Q5M PRN 11/18/16 11/18/16 History Potassium Chloride ER [K-Dur 20] 20 meq PO DAILY 11/18/16 11/18/16 History Allergies Allergy/AdvReac Type Severity Reaction Status Date / Time adhesive Allergy Rash/Hives Verified 11/18/16 17:17 Physical Exam Vitals: Vital Signs Temp Pulse Pulse Resp BP BP Pulse Ox 11/19/16 10:00 62 24 108/59 97 11/19/16 09:00 63 24 100/53 95 11/19/16 08:00 98.2 F 62 24 106/61 98 11/19/16 06:00 70 20 111/54 96 11/19/16 04:00 70 20 119/57 99 11/19/16 03:00 70 19 107/57 98 11/19/16 02:15 70 22 112/55 100 11/19/16 02:00 72 20 97/51 96 11/19/16 01:07 70 22 101/54 97 11/18/16 23:19 76 18 106/54 99 11/18/16 22:26 69 18 114/59 99 11/18/16 21:12 96 F L 70 22 109/53 99 11/18/16 18:59 97 11/18/16 18:46 97 Intake and Output 11/18/16 11/19/16 11/19/16 22:59 06:59 14:59 Output Total 0 Balance 0 Output: Urine 0 Other: Weight 77.111 kg 77.111 kg Patient Weight 11/20/16 06:59 Weight 77.111 kg Head normocephalic Neck supple Lungs crackles at bases bilaterally Heart regular rate and rhythm S1-S2, no rub or gallop Abdomen is soft nontender nondistended positive bowel sounds no hepatosplenomegaly Extremities lower extremity edema bilaterally +1. Evidence of cellulitis in the left lower extremity. Left leg is red and warm. Neuro alert and orientated to 3 Results CBC & Chem 7: 11/18/16 17:10 11/19/16 05:01 Labs: Abnormal Lab Results - Last 24 Hours (Table) 11/18/16 11/18/16 11/19/16 Range/Units 20:36 23:00 00:00 Potassium 7.4 H* 7.7 H* (3.5-5.1) mmol/L POC Glucose (mg/dL) 122 H (75-99) mg/dL 11/19/16 Range/Units 05:01 Potassium 6.5 H* (3.5-5.1) mmol/L POC Glucose (mg/dL) (75-99) mg/dL Assessment and Plan Plan: 1. Acute on chronic systolic CHF exacerbation: Chest x-ray showing congestive heart failure and pleural effusions. With a left lower lobe pneumonia cannot exclude. BNP is 14,700. Patient is started on IV Lasix. Cardiology and pulmonary service consulted. 2. Acute on chronic respiratory failure home O2 dependent. Likely secondary to her CHF. Patient is currently on BiPAP. 3. Acute kidney injury with creatinine elevated at 3.09. Nephrology consulted. Patient has been scheduled for dialysis 4. Severe hyperkalemia with potassium is 7.8. Potassium is not 6.5 after medications given in the ER. Patient is scheduled for hemodialysis 5. Syncopal episode: Computed tomography scan of the brain normal. Continue with telemetry monitoring. Cardiology consult. 6. Severe cardiomyopathy with AICD 7. Moderate pulmonary hypertension 8. Hyponatremia: Nephrology consulted 9. Chronic atrial fibrillation on Xarelto 10. History of iron deficiency anemia: Continue iron supplement. Hemoglobin stable GI prophylaxis Protonix and DVT prophylaxis Xarelto engagement manager has been notified we are working and transferring patient to [facility]. Time with Patient: Greater than 30 (Greater than 50% of the total time spent in counseling and coordination of care. I performed an examination of the patient and discussed their management with the physician Computer Hardware Developer. I have reviewed the Physician Computer Hardware Developer's notes and agree with the documented findings and plan of care)
--- NOTE | 2016-11-19 10:45 | P.NPCON ---
History of Present Illness - Reason for Consult acute renal failure - History of Present Illness Reason for consultation: Acute kidney injury and hyperkalemia History of present illness: Patient is a 71-year-old female seen in renal consultation for acute kidney injury and hyperkalemia. Patient presented to the hospital with dyspnea. Patient was recently admitted at [facility] with CHF exacerbation and at that time required several days of Lasix drip as well as dobutamine drip. She was subsequently transferred to [facility]. She was discharged a week ago and since then has gained about 20 pounds. She did see her primary care physician yesterday and was advised to increase her diuretics however last night she had a syncopal episode and was brought to the hospital. Her chest x-ray was adjustable pulmonary edema. She is currently requiring high oxygen requirements and is not a very reliable historian. She her potassium was elevated at 7.8 and remained elevated despite medical management. She is currently undergoing hemodialysis. She has systolic CHF with ejection fraction of 20-25% with severe tricuspid regurgitation and moderate pulmonary hypertension. Vital signs are stable. General: The patient appeared well nourished and normally developed. HEENT: Head exam is unremarkable. Neck is without jugular venous distension. LUNGS: Diffuse rhonchi. Breath sounds decreased. HEART: Rate and Rhythm are regular. First and second heart sounds normal. No murmurs, rubs or gallops. ABDOMEN: Abdominal exam reveals normal bowel sounds. Non-tender and non- distended. No evidence of peritonitis. EXTREMITITES: 1+ edema. 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 USES HOME O2 2 LITERS N/C at HS AND HAS NEBULIZER. EGD and April 2014 revealing gastritis and gastric polyp. PAST HX GOUT,ANEMIA/IRON DEFICIENCY, Last Myocardial Infarction Date:: 2008 History of Any Multi-Drug Resistant Organisms: None Reported Past Surgical History: Bariatric Surgery, Cholecystectomy, Heart Catheterization , Heart Catheterization With Stent, Hernia Repair, Joint Replacement, Pacemaker Additional Past Surgical History / Comment(s): BILATERAL CATARACT SURGERY, HIATAL HERNIA REPAIR, OPEN CHOLECYSTECTOMY, 3 C-SECTIONS, BILATERAL TOTAL KNEES TWICE, stomache stapled 35 years ago, EGD, patient states has AICD Pacemaker Past Anesthesia/Blood Transfusion Reactions: No Reported Reaction Additional Past Anesthesia/Blood Transfusion Reaction / Comment(s): PT HAS NEVER HAD BLOOD TRANSFUSION Date of Last Stent Placement:: 2008 Type of Cardiac Device: AICD Device Placement Date:: Jul 2016 Past Psychological History: No Psychological Hx Reported Additional Psychological History / Comment(s): LIVES WITH OF 50 YRS. SHE LIVES IN A SINGLE LEVEL HOME. PT PERFORMS OWN ADL'S. THE BATHROOM IS HANDICAP ASSESSIBLE. THEY GET MEALS ON WHEELS 4 DAYS A WEEK. HER COOKS ON THE OTHER DAYS. PT USES A CANE IF SHE HAS TO WALK A DISTANCE. PT NO LONGER DRIVES. HER DRIVES. Smoking Status: Former smoker Past Alcohol Use History: Occasional Additional Past Alcohol Use History / Comment(s): Quit smoking over 40 years ago stated only smoked a few years in her 21. 's 1 pack per week Past Drug Use History: None Reported - Past Family History Father Family Medical History: Cancer, CVA/TIA Additional Family Medical History / Comment(s): FATHER AT AGE 81YRS Mother Family Medical History: CVA/TIA, Myocardial Infarction ([place]) Additional Family Medical History / Comment(s): MOTHER IS ALIVE AT AGE 96YRS. Medications and Allergies Home Medications Medication Instructions Recorded Confirmed Type Allopurinol 300 mg PO DAILY 07/12/14 11/18/16 History Hydrocodone/Acetaminophen 1 - 2 tab PO Q6HR PRN 04/22/15 11/18/16 History [Hydrocodon-Acetaminophn 10-325] Ferrous Sulfate [Iron (65 MG 325 mg PO DAILY 12/23/15 11/18/16 History Elemental)] Multivits-Min/Iron/FA/Lutein 1 tab PO DAILY 02/04/16 11/18/16 History [Centrum Silver Women Tablet] ALPRAZolam [Xanax] 0.25 mg PO Q6H PRN 10/08/16 11/18/16 History Bumetanide [BUMEX] 2 mg PO BID@0800,1500 10/08/16 11/18/16 History Levothyroxine Sodium [Synthroid] 50 mcg PO DAILY 10/08/16 11/18/16 History Pantoprazole Sodium [Protonix] 40 mg PO BID@0800,1600 10/08/16 11/18/16 History Rivaroxaban [Xarelto] 15 mg PO W/SUPPER@1600 10/08/16 11/18/16 History Amoxic-Pot Clav 500-125 mg 1 tab PO Q12HR 11/18/16 11/18/16 History [Augmentin 500-125 mg] Ipratropium Nebulized [Atrovent 0.5 mg INHALATION RT-DAILY 11/18/16 11/18/16 History Nebulized] Milrinone 1mg/Ml 1 dose IV CONTINUOUS 11/18/16 11/18/16 History Nitroglycerin Sl Tabs [Nitrostat] 0.4 mg SUBLINGUAL Q5M PRN 11/18/16 11/18/16 History Potassium Chloride ER [K-Dur 20] 20 meq PO DAILY 11/18/16 11/18/16 History Allergies Allergy/AdvReac Type Severity Reaction Status Date / Time adhesive Allergy Rash/Hives Verified 11/18/16 17:17 Physical Exam Vitals: Vital Signs Temp Pulse Pulse Resp BP BP Pulse Ox 11/19/16 10:36 70 11/19/16 10:00 62 24 108/59 97 11/19/16 09:00 63 24 100/53 95 11/19/16 08:00 98.2 F 62 24 106/61 98 11/19/16 06:00 70 20 111/54 96 11/19/16 04:00 70 20 119/57 99 11/19/16 03:00 70 19 107/57 98 11/19/16 02:15 70 22 112/55 100 11/19/16 02:00 72 20 97/51 96 11/19/16 01:07 70 22 101/54 97 11/18/16 23:19 76 18 106/54 99 11/18/16 22:26 69 18 114/59 99 11/18/16 21:12 96 F L 70 22 109/53 99 11/18/16 18:59 97 11/18/16 18:46 97 Intake and Output 11/18/16 11/19/16 11/19/16 22:59 06:59 14:59 Output Total 0 Balance 0 Output: Urine 0 Other: Weight 77.111 kg 77.111 kg Patient Weight 11/20/16 06:59 Weight 77.111 kg Results - Lab Results Most recent lab results Calcium 10.1 mg/dL (8.4-10.2) 11/18/16 17:45 11/18/16 17:10 11/19/16 05:01 Assessment and Plan Plan: Assessment: #1. Acute kidney injury secondary to cardiorenal syndrome. Creatinine elevated at 3.09 this admission. #2. Chronic kidney disease stage III with baseline creatinine in the range of 1 -1.4 secondary to cardiorenal syndrome. #3. Systolic CHF with ejection fraction of 20-25% with severe tricuspid regurgitation and moderate pulmonary hypertension. #4. Hyperkalemia secondary to acute kidney injury. #5. Left kidney complex cyst. #6. Volume overload. #7. Hypervolemic hyponatremia. Plan: Currently undergoing first treatment of hemodialysis with goal 2 liters ultrafiltration. Continue Lasix 40 mg IV 3 times daily. Wean FiO2 as tolerated. Avoid nephrotoxic agents and hypotensive episodes. Patient was recently admitted at [facility] and was discharged with continuous milrinone drip. Plan is to transfer her to [facility] today. Thank you for the consultation. I will continue to follow the patient with you during her hospital stay.
--- NOTE | 2016-11-19 11:09 | P.DS ---
Providers Date of admission: 11/18/16 18:42 Expected date of discharge: 11/19/16 Attending physician: Armen Jackson Consults: 11/18/16 18:59 Consult Physician Urgent Consulting Provider: Tulio Scanlon Consult Reason/Comments: critical care Do you want consulting provider notified?: Already Contacted Dr. Sanchez Cardiology Primary care physician: [facility] Course: Discharge diagnosis 1. Acute on chronic systolic CHF exacerbation with severe tricuspid regurgitation and moderate pulmonary hypertension: Chest x-ray showing congestive heart failure and pleural effusions. With a left lower lobe pneumonia cannot exclude. BNP is 14,700. Patient is started on IV Lasix. Cardiology and pulmonary service consulted. 2. Acute on chronic respiratory failure home O2 dependent. Likely secondary to her CHF. Patient is currently on BiPAP. 3. Acute kidney injury secondary to cardiorenal syndrome: creatinine elevated at 3.09. Nephrology consulted. Patient has been scheduled for dialysis 4. Severe hyperkalemia with potassium is 7.8. Secondary to acute kidney injury. Potassium is down to 6.5 after medications given in the ER. Patient is scheduled for hemodialysis 5. Syncopal episode: Exact etiology unclear. Computed tomography scan of the brain normal. Continue with telemetry monitoring. Cardiology consult. 6. Severe cardiomyopathy with AICD 7. Moderate pulmonary hypertension 8. Hyponatremia: Nephrology consulted 9. Chronic atrial fibrillation on Xarelto 10. History of iron deficiency anemia: Continue iron supplement. Hemoglobin stable 11. Hypervolemic hyponatremia 12. Chronic kidney disease stage III: Baseline creatinine around 1-1.4 secondary to cardiorenal syndrome Hospital course This is a 71-year-old female with past medical history of coronary artery disease, ischemic cardiomyopathy with AICD, chronic atrial fibrillation, renal failure, chronic systolic heart failure and chronic respiratory failure. Also has a history of moderate pulmonary hypertension. She has a known EF of 20-25% . Patient was a recent transfer from [facility] for congestive heart failure. Patient was discharged about a week ago from [facility]. Had been doing well. And she did notice some weight gain and cough. Started on Augmentin outpatient. Also her Bumex was increased. Patient had syncopal episode after bowel movement and getting back into bed. Computed tomography scan of the brain normal. Started having shortness of breath and presented to the emergency room via EMS. Chest x-ray shows congestive heart failure with pleural effusions. Left lower lobe pneumonia cannot be excluded. BNP 14,700. Patient started on IV Lasix 40 every 8 hours. Cardiology and pulmonary services have been consulted. She was also found to have acute kidney injury with a creatinine of 3.09. And severe urgent hyperkalemia with potassium of 7.8. Patient was given medications. Potassium is down to 6.5. She is scheduled for dialysis today. Patient was started on milrinone at [facility]. Patient seen and examined emergency room. And she is currently on BiPAP. Case discussed with [facility] team. Patient requires higher level of care. She is on milrinone on which is not used in this hospital. And patient had recently been at [facility] for treatment for her CHF. She has been accepted at [facility]. Please refer to chart for any further details. Patient Condition at Discharge: Stable Plan - Discharge Summary Discharge Medication List Hydrocodone/Acetaminophen [Hydrocodon-Acetaminophn 10-325] 1 - 2 tab PO Q6HR PRN 04/22/15 [History] Ferrous Sulfate [Iron (65 MG Elemental)] 325 mg PO DAILY 12/23/15 [History] Multivits-Min/Iron/FA/Lutein [Centrum Silver Women Tablet] 1 tab PO DAILY [History] ALPRAZolam [Xanax] 0.25 mg PO Q6H PRN 10/08/16 [History] Bumetanide [BUMEX] 2 mg PO BID@0800,1500 10/08/16 [History] Levothyroxine Sodium [Synthroid] 50 mcg PO DAILY 10/08/16 [History] Pantoprazole Sodium [Protonix] 40 mg PO BID@0800,1600 10/08/16 [History] Rivaroxaban [Xarelto] 15 mg PO W/SUPPER@1600 10/08/16 [History] Docusate [Colace] 100 mg PO BID cap 10/26/16 [Rx] Ipratropium Nebulized [Atrovent Nebulized] 0.5 mg INHALATION RT-DAILY 11/18/16 [ History] Milrinone 1mg/Ml 1 dose IV CONTINUOUS 11/18/16 [History] Nitroglycerin Sl Tabs [Nitrostat] 0.4 mg SUBLINGUAL Q5M PRN 11/18/16 [History] cefTRIAXone [Rocephin] 1,000 mg IVPB Q24HR vial 11/19/16 [Rx] Follow up Appointment(s)/Referral(s): Armen Jackson MD [Primary Care Provider] - 1 Week Activity/Diet/Wound Care/Special Instructions: Patient to be transferred to [facility] Discharge Disposition: OTHER INSTITUTION NOT DEFINED
[2016-11-19] MEDS ORDERED: IPRATROPIUM 0.5 MG/2.5 ML NEBU INHALATION SCH (12:00)
[2016-11-19 13:04] VITALS: BP 95/54
--- NOTE | 2016-11-19 13:09 | CDI ---
In responding to this query, please exercise your independent professional judgment. The [facility] Coding Staff and Clinical Documentation Specialists appreciate your assistance in clarifying documentation, maintaining compliance with coding guidelines, accurately documenting patients condition and capturing severity of illness. The fact that a question is asked does not imply that any particular answer is desired or expected. Communication forms are a method of clarifying documentation and are not made part of the Legal Health Record. Thank you in advance for your clarification. Last Revision, October 2015 Dayana Roberts [address] [facility] [place] [address] Documentation Clarification Form Date: 11/19/2016 12:58:00 PM From: Ana Pyle CCS, CCDS Admit Date: 11/18/2016 6:42:00 PM Patient Name: Windy Dozier Visit Number: [id number] Discharge Date: Dr. Armen Jackson: 71 yo female presented to after a syncopal episode at home. Patient has a complex cardiac history including pulmonary hypertension, cardiomyopathy w/AICD & Systolic CHF. Per the attending notes, the patient is diagnosed with Acute on Chronic Systolic CHF with pulmonary hypertension and Acute on CKD stage III per nephrology (cardiorenal syndrome). History/Risk Factors: O2 dependent 2L nc @ home, CHF on IV Milrinone. Former smoker Clinical Indicators: VS: RR 24 (sob, labored breathing), PO 100 on 15% nrb, then BiPAP LAB: Na 129, K 7.8, Cl 85, CO2 32, BUN 9 Cr 3.09 Treatment: BiPAP, IV Lasix, Albuterol Neb INH, IV Dextrose, IV NaBicarb, IV Insulin, IV Rashel Gluc. Admit to ICU, pending transfer to [facility] for higher level of care. In your professional opinion, can you please clarify if these findings signify one of the following conditions? Acute on Chronic Respiratory Failure with: o Respiratory failure with hypercapnia o Respiratory failure with hypoxia o Acute Respiratory Distress o Other Diagnosis, please specify o Unable to determine Please document in your progress notes and discharge summary in order to capture severity of illness and risk of mortality. Include clinical findings that support your diagnosis. FYI: Press F11 to launch patient chart. Place X here if this finding has no clinical significance, is not applicable or if you are not able to provide any additional documentation. Thank You. BERTIN
[2016-11-19 14:15] VITALS: RESP 18; TEMP 96.8
[2016-11-19] MEDS ORDERED: PANTOPRAZOLE 40 MG TABLET PO SCH (16:00)
[2016-11-19] MEDS ORDERED: RIVAROXABAN 15 MG TAB PO SCH (16:00)
== END 2016-11-19 14:15 | disposition other institution (70) | DRG 291 ==
LOC: EC 16:40 → 6SEL 18:42 → 6ICU 11-19 01:14
PROVIDERS: ADMIT Internal Medicine; ATTEND Internal Medicine
PROC: 5A1D00Z (ICD-10-PCS; principal; 2016-11-19)
PROC: 06HM33Z Insertion of Infusion Device into Right Femoral Vein, Percutaneous Approach (ICD-10-PCS; 2016-11-19)
PROC: B54BZZA Ultrasonography of Right Lower Extremity Veins, Guidance (ICD-10-PCS; 2016-11-19)
DX: I13.0 Hypertensive heart and chronic kidney disease with heart failure and stage 1 through stage 4 chronic kidney disease, or unspecified chronic kidney disease (principal); I50.23 Acute on chronic systolic (congestive) heart failure; J96.21 Acute and chronic respiratory failure with hypoxia; N17.9 Acute kidney failure, unspecified; J18.9 Pneumonia, unspecified organism; E87.1 Hypo-osmolality and hyponatremia; J44.0 Chronic obstructive pulmonary disease with (acute) lower respiratory infection; I27.2 Other secondary pulmonary hypertension; Z99.81 Dependence on supplemental oxygen; R13.10 Dysphagia, unspecified; E87.5 Hyperkalemia; N18.3 Chronic kidney disease, stage 3 (moderate); I25.5 Ischemic cardiomyopathy; I07.1 Rheumatic tricuspid insufficiency; N28.1 Cyst of kidney, acquired; M06.9 Rheumatoid arthritis, unspecified; I69.391 Dysphagia following cerebral infarction; I48.2 Chronic atrial fibrillation; I69.398 Other sequelae of cerebral infarction; I25.2 Old myocardial infarction; I25.10 Atherosclerotic heart disease of native coronary artery without angina pectoris; H53.9 Unspecified visual disturbance; M10.9 Gout, unspecified; J45.909 Unspecified asthma, uncomplicated; E07.9 Disorder of thyroid, unspecified; M19.91 Primary osteoarthritis, unspecified site; D50.9 Iron deficiency anemia, unspecified; Z99.2 Dependence on renal dialysis; Z95.810 Presence of automatic (implantable) cardiac defibrillator; Z86.718 Personal history of other venous thrombosis and embolism; Z90.49 Acquired absence of other specified parts of digestive tract; Z95.5 Presence of coronary angioplasty implant and graft; Z98.42 Cataract extraction status, left eye; Z98.41 Cataract extraction status, right eye; Z96.653 Presence of artificial knee joint, bilateral; Z98.84 Bariatric surgery status; Z87.891 Personal history of nicotine dependence; Z79.01 Long term (current) use of anticoagulants; Z87.19 Personal history of other diseases of the digestive system; Z82.49 Family history of ischemic heart disease and other diseases of the circulatory system
CPT/HCPCS: 36415; 70450; 71010; 80053; 82550; 82553; 83880; 84132; 84484; 85025; 85610; 85730; 90935; 93005; 94640; 94660; 96365; 96375; 99291